=== PATIENT | female | born 1940 | race Caucasian/White ===

== ENCOUNTER 2018-04-30 10:37 | Observation (INO) | payer MEDICARE, OTHER ==
[2018-04-30 11:08] LABS: CHLORIDE,CL 93 mEq/L (98-106); SODIUM,NA 125 mEq/L (136-145)
[2018-04-30] MEDS ORDERED: Morphine 2 MG/ML Syringe IVPUSH PRN (13:33)
[2018-04-30] MEDS ORDERED: Ibuprofen 200 MG Tab PO PRN (13:33)
[2018-04-30] MEDS ORDERED: Temazepam 15 MG Cap PO PRN (13:33)
[2018-04-30] MEDS ORDERED: Docusate Sodium 100 MG Cap PO PRN (13:33)
[2018-04-30] MEDS ORDERED: Ondansetron 4 MG/2 ML SDV IV PRN (13:33)
[2018-04-30] MEDS ORDERED: Acetaminophen 325 MG Tab PO PRN (13:33)
[2018-04-30] MEDS ORDERED: IMMUNE GLOBULIN IV SCH (13:45)
[2018-04-30] MEDS ORDERED: [UNRECOGNIZED DRUG - OTHER] IV SCH (13:45)
[2018-04-30] MEDS ORDERED: Polyethylene Glycol 3350 Powder 17 GM Packet PO PRN (14:00)
[2018-04-30] MEDS: Clindamycin Phosphate in D5W 300 MG in Premix Bag 1 BAG IV SCH ×4 (14:09→19:45)
[2018-04-30] MEDS: Enoxaparin 40 MG/0.4 ML Syringe SUBCUT SCH (14:09)
[2018-04-30] MEDS: Beta-Carotene (Vitamin A) w/Vitamin C & E plus Minerals Tab PO SCH (19:52)
[2018-04-30] MEDS: Metoprolol Tartrate 50 MG Tab **OWN MED PO SCH (19:52)
[2018-04-30] MEDS: Insulin Detemir 100 Units/ML 3 ML Pen SUBCUT SCH (20:25)
[2018-04-30] MEDS: cloNIDine 0.1 MG Tab **OWN MED PO SCH (20:29)
[2018-04-30] MEDS: Acetaminophen/HYDROcodone 325-5 MG Tab **OWN MED PO PRN (23:06)
[2018-05-01] MEDS: Clindamycin Phosphate in D5W 300 MG in Premix Bag 1 BAG IV SCH ×8 (01:47→19:29)
[2018-05-01 07:07] LABS: CHLORIDE,CL 95 mEq/L (98-106); SODIUM,NA 127 mEq/L (136-145)
[2018-05-01] MEDS: Pantoprazole 40 MG Tab.CR **OWN MED PO SCH (07:21)
[2018-05-01] MEDS: LOSARTAN 50 MG PO SCH (07:27)
[2018-05-01] MEDS: Metoprolol Tartrate 50 MG Tab **OWN MED PO SCH ×2 (07:27→19:28)
[2018-05-01] MEDS: TRIAMTERENE PO SCH (07:28)
[2018-05-01] MEDS: HCTZ PO SCH (07:28)
[2018-05-01] MEDS: Loratadine 10 MG Tab PO SCH (07:30)
[2018-05-01] MEDS: Beta-Carotene (Vitamin A) w/Vitamin C & E plus Minerals Tab PO SCH ×2 (07:30→19:28)
[2018-05-01] MEDS: Cholecalciferol (Vitamin D3) 1,000 Unit Tab PO SCH (07:30)
--- NOTE | 2018-05-01 09:57 | PCM.PN ---
- General Info Date of Service: 05/01/18 Functional Status: Reports: Pain Controlled, Tolerating Diet, Ambulating - Review of Systems General: Reports: No Symptoms HEENT: Reports: No Symptoms Pulmonary: Reports: No Symptoms Cardiovascular: Reports: No Symptoms Gastrointestinal: Reports: No Symptoms Genitourinary: Reports: No Symptoms Musculoskeletal: Reports: No Symptoms Skin: Reports: Bruising (LLE) Neurological: Reports: No Symptoms Psychiatric: Reports: No Symptoms - Patient Data Vitals - Most Recent: Last Vital Signs Temp 97.8 F 05/01/18 07:30 Pulse 66 05/01/18 07:27 Resp 16 05/01/18 07:30 BP 133/54 L 05/01/18 07:30 Pulse Ox 99 05/01/18 07:30 Weight - Most Recent: 126 lb 11.2 oz I&O - Last 24 Hours: Intake & Output 04/30/18 05/01/18 05/01/18 22:59 06:59 14:59 Intake Total 50 50 Balance 50 50 Lab Results Last 24 Hours: Laboratory Results - last 24 hr 04/30/18 04/30/18 04/30/18 Range/Units 06:50 10:44 10:44 WBC 12.6 H (5.0-10.0) 10^3/uL RBC 3.95 L (4.00-5.50) 10^6/uL Hgb 11.1 L (12.0-16.0) g/dL Hct 33.6 L (37.0-47.0) % MCV 85.1 (82.0-94.0) fL MCH 28.1 (27.0-32.0) pg MCHC 33.0 (33.0-38.0) g/dL RDW Coeff of Blaze 15.1 H (11.0-15.0) % Plt Count 323 (150-400) 10^3/uL Neut % (Auto) 32.0 L (35-85) % Lymph % (Auto) 59.8 H (10-55) % [place] % (Auto) 7.2 (0-16) % Eos % (Auto) 0.6 (0-5) % Baso % (Auto) 0.4 (0-3) % Neut # (Auto) 4.03 (1.80-7.00) 10^3/uL Lymph # (Auto) 7.53 H (1.00-4.80) 10^3/uL [place] # (Auto) 0.91 H (0.00-0.80) 10^3/uL Eos # (Auto) 0.08 (0.00-0.45) 10^3/uL Baso # (Auto) 0.05 10^3/uL PT 10.0 (9.7-12.3) SEC INR 0.96 (0.92-1.18) APTT (23.2-32.3) SEC D-Dimer, Quantitative 0.98 H (0.00-0.50) Sodium (136-145) mEq/L Potassium (3.5-5.0) mEq/L Chloride (98-106) mEq/L Carbon Dioxide (21-32) mmol/L BUN (7-18) mg/dL Creatinine (0.6-1.0) mg/dL Est Cr Clr Drug Dosing Estimated GFR (MDRD) (>=60) mL/min Glucose (75-99) mg/dL POC Glucose (75-105) mg/dl Calcium (8.4-10.1) mg/dL C-Reactive Protein (0.2-0.8) mg/dL 04/30/18 04/30/18 05/01/18 Range/Units 10:44 20:24 06:50 WBC 11.2 H (5.0-10.0) 10^3/uL RBC 3.40 L (4.00-5.50) 10^6/uL Hgb 9.5 L (12.0-16.0) g/dL Hct 28.8 L (37.0-47.0) % MCV 84.7 (82.0-94.0) fL MCH 27.9 (27.0-32.0) pg MCHC 33.0 (33.0-38.0) g/dL RDW Coeff of Blaze 14.9 (11.0-15.0) % Plt Count 262 (150-400) 10^3/uL Neut % (Auto) 17.5 L (35-85) % Lymph % (Auto) 73.7 H (10-55) % [place] % (Auto) 7.3 (0-16) % Eos % (Auto) 1.0 (0-5) % Baso % (Auto) 0.5 (0-3) % Neut # (Auto) 1.95 (1.80-7.00) 10^3/uL Lymph # (Auto) 8.25 H (1.00-4.80) 10^3/uL [place] # (Auto) 0.82 H (0.00-0.80) 10^3/uL Eos # (Auto) 0.11 (0.00-0.45) 10^3/uL Baso # (Auto) 0.06 10^3/uL PT (9.7-12.3) SEC INR (0.92-1.18) APTT (23.2-32.3) SEC D-Dimer, Quantitative (0.00-0.50) Sodium 125 L (136-145) mEq/L Potassium 4.5 (3.5-5.0) mEq/L Chloride 93 L (98-106) mEq/L Carbon Dioxide 26 (21-32) mmol/L BUN 35 H (7-18) mg/dL Creatinine 1.3 H (0.6-1.0) mg/dL Est Cr Clr Drug Dosing TNP Estimated GFR (MDRD) 40 L (>=60) mL/min Glucose 231 H (75-99) mg/dL POC Glucose 318 H (75-105) mg/dl Calcium 9.3 (8.4-10.1) mg/dL C-Reactive Protein (0.2-0.8) mg/dL 05/01/18 05/01/18 05/01/18 Range/Units 06:50 06:50 07:43 WBC (5.0-10.0) 10^3/uL RBC (4.00-5.50) 10^6/uL Hgb (12.0-16.0) g/dL Hct (37.0-47.0) % MCV (82.0-94.0) fL MCH (27.0-32.0) pg MCHC (33.0-38.0) g/dL RDW Coeff of Blaze (11.0-15.0) % Plt Count (150-400) 10^3/uL Neut % (Auto) (35-85) % Lymph % (Auto) (10-55) % [place] % (Auto) (0-16) % Eos % (Auto) (0-5) % Baso % (Auto) (0-3) % Neut # (Auto) (1.80-7.00) 10^3/uL Lymph # (Auto) (1.00-4.80) 10^3/uL [place] # (Auto) (0.00-0.80) 10^3/uL Eos # (Auto) (0.00-0.45) 10^3/uL Baso # (Auto) 10^3/uL PT (9.7-12.3) SEC INR (0.92-1.18) APTT 27.2 (23.2-32.3) SEC D-Dimer, Quantitative (0.00-0.50) Sodium 127 L (136-145) mEq/L Potassium 4.2 (3.5-5.0) mEq/L Chloride 95 L (98-106) mEq/L Carbon Dioxide 28 (21-32) mmol/L BUN 27 H (7-18) mg/dL Creatinine 1.2 H (0.6-1.0) mg/dL Est Cr Clr Drug Dosing 34.21 Estimated GFR (MDRD) 43 L (>=60) mL/min Glucose 93 D (75-99) mg/dL POC Glucose 98 (75-105) mg/dl Calcium 8.7 (8.4-10.1) mg/dL C-Reactive Protein < 0.2 L (0.2-0.8) mg/dL Med Orders - Current: Current Medications Acetaminophen (Tylenol) 650 mg PO Q4H PRN PRN Reason: Pain (Mild 1-3)/fever Hydrocodone Bitart/Acetaminophen ([place] 325-5 Mg) 1 tab PO Q6H PRN PRN Reason: PAIN Last Admin: 04/30/18 23:06 Dose: 1 tab Cholecalciferol (Vitamin D3) 2,000 units PO DAILY [facility] Last Admin: 05/01/18 07:30 Dose: Not Given Clonidine HCl (Catapres) 0.1 mg PO BEDTIME [facility] Last Admin: 04/30/18 20:29 Dose: 0.1 mg Docusate Sodium (Colace) 100 mg PO BID PRN PRN Reason: Constipation Enoxaparin Sodium (Lovenox) 40 mg SUBCUT Q24H [facility] Last Admin: 04/30/18 14:09 Dose: 40 mg Clindamycin Phosphate 300 mg/ (Premix) 50 mls @ 100 mls/hr IV Q6H [facility] Last Admin: 05/01/18 07:54 Dose: 100 mls/hr Ibuprofen (Motrin) 600 mg PO Q6H PRN PRN Reason: Pain (mild 1-3) Insulin Detemir (Levemir) 6 unit SUBCUT BEDTIME [facility] Last Admin: 04/30/18 20:25 Dose: 6 units Loratadine (Claritin) 10 mg PO DAILY [facility] Last Admin: 05/01/18 07:30 Dose: Not Given Metoprolol Tartrate (Lopressor) 50 mg PO BID [facility] Last Admin: 05/01/18 07:27 Dose: 50 mg Morphine Sulfate (Morphine) 2 mg IVPUSH Q2H PRN PRN Reason: Pain (severe 7-10) Multivitamins/Minerals (Prosight) 2 tab PO BID [facility] Last Admin: 05/01/18 07:30 Dose: Not Given Triamterene/Hctz 75- (50 Mg TabOwn Med) 0.5 each PO DAILY [facility] Last Admin: 05/01/18 07:28 Dose: 0.5 each Non-Formulary Medication (Ibrutinib [Imbruvica]) 420 mg PO DAILY [facility] Ondansetron HCl (Zofran) 4 mg IV Q6H PRN PRN Reason: Nausea/Vomiting Pantoprazole Sodium (Protonix) 40 mg PO DAILY [facility] Last Admin: 05/01/18 07:21 Dose: 40 mg Losartan 50 Mg Tab * (*Own Med) 0 each PO DAILY [facility] Last Admin: 05/01/18 07:27 Dose: 50 each Polyethylene Glycol (Miralax) 17 gm PO DAILY PRN PRN Reason: CONSTIPATION Last Admin: 04/30/18 19:56 Dose: 17 gm Temazepam (Restoril) 15 mg PO BEDTIME PRN PRN Reason: Sleep Discontinued Medications Non-Formulary Medication (Immune Globulin,G(Igg)/Maltose [Octagam 10%]) 10 gm IV ASDIRECTED [facility] - Exam General: Alert, Oriented, Cooperative, No Acute Distress Neck: Supple Lungs: Clear to Auscultation, Normal Respiratory Effort Cardiovascular: Regular Rate, Regular Rhythm, No Murmurs GI/Abdominal Exam: Normal Bowel Sounds, Soft, Non-Tender, No Organomegaly, No Distention, No Abnormal Bruit, No Mass, Pelvis Stable (Female) Exam: Deferred Back Exam: Normal Inspection, Full Range of Motion Extremities: Normal Range of Motion, Non-Tender, No Pedal Edema, Normal Capillary Refill, Other (LLE ecchymosis from ankle to the below the knee. There is faint errythema anterior ta, not as red as 24 hours ago. ) Peripheral Pulses: 2+: Radial (L), Radial (R), Posterior Tibial (L), Posterior Tibial (R), Dorsalis Pedis (L), Dorsalis Pedis (R) Skin: Warm, Dry, Intact Neurological: No New Focal Deficit, Normal Gait, Normal Speech Psy/Mental Status: Alert, Normal Affect, Normal Mood - Problem List Review Problem List Initiated/Reviewed/Updated: Yes - My Orders Last 24 Hours: My Active Orders 04/30/18 13:25 Resuscitation Status Routine 04/30/18 13:33 Patient Status [ADT] Routine Bedrest Bedside Commode [RC] .PRN Height and Weight [RC] .PRN Notify Provider Vital Signs [RC] .PRN Oxygen Therapy [RC] .PRN Up With Assistance [RC] .PRN Vital Signs [RC] 0000,0400,0800,1200,1600,2000 Acetaminophen [Tylenol] 650 mg PO Q4H PRN Docusate Sodium [Colace] 100 mg PO BID PRN Ibuprofen [Motrin] 600 mg PO Q6H PRN Morphine 2 mg IVPUSH Q2H PRN Ondansetron [Zofran] 4 mg IV Q6H PRN Temazepam [Restoril] 15 mg PO BEDTIME PRN 04/30/18 13:49 Acetaminophen/HYDROcodone [[place] 325-5 MG] 1 tab PO Q6H PRN 04/30/18 14:00 Clindamycin Phosphate in D5W [Cleocin in D5W] 300 mg Premix Bag 1 bag IV Q6H Enoxaparin [Lovenox] 40 mg SUBCUT Q24H Polyethylene Glycol 3350 [MiraLAX] 17 gm PO DAILY PRN 04/30/18 19:11 Accu Check [Blood Glucose Check, Bedside] [RC] 0730,1130,1730,2030 04/30/18 20:00 Beta-Carotene(A) w/C & E/Min [Prosight] 2 tab PO BID Insulin Detemir [Levemir] 6 unit SUBCUT BEDTIME Metoprolol Tartrate [Lopressor] 50 mg PO BID cloNIDine [Catapres] 0.1 mg PO BEDTIME 04/30/18 Lunch Consistent Carbohydrate Diet [DIET] 05/01/18 08:00 Cholecalciferol (Vitamin D3) [Vitamin D3] 2,000 units PO DAILY Loratadine [Claritin] 10 mg PO DAILY Non-Formulary Medication [NF Drug] 0.5 each PO DAILY Pantoprazole [ProTONIX] 40 mg PO DAILY Patient's Own Medication [Ptom] 0 each PO DAILY 05/02/18 05:00 BASIC METABOLIC PANEL,BMP [CHEM] DAILY C-REACTIVE PROTEIN [CHEM] DAILY CBC WITH AUTO DIFF [HEME] DAILY 05/02/18 08:00 VL Duplex Lwr Ext Veins Ltd Lt [US] Routine Ibrutinib [Imbruvica] 420 mg PO DAILY 05/03/18 05:00 BASIC METABOLIC PANEL,BMP [CHEM] DAILY C-REACTIVE PROTEIN [CHEM] DAILY CBC WITH AUTO DIFF [HEME] DAILY - Plan Plan:: This patient is a 78 year old female that presented to the clinic yesterday. She was admitted for LLE cellulitis and LLE eccyhmosis discoloration without known recent trauma to the leg. She reports her trauma to the LLE occurred 3 weeks ago. The patient reports that she does not recall new trauma lately. The patient denies staples, dizziness, n, v, d, f, abd pain, cp, back pain, extremity pain. Pulses +2, cap refill <2 sec, motor function intact. Neurovascular intact. Sensation decreased chronically due to neuropathy. Labs yesterday was wbc 12.6, na 125, chloride 93, BUN 35, CR 1.3. Today these labs have improved. They are wbc 11.2, na 127, chloride 95, BUN 27, CR 1.2. The plan for this patient is to continue admit, abx, and US LLE tomorrow morning. If the US is negative, the patient may be discharge.
[2018-05-01] MEDS: IBRUTINIB 420 MG PO SCH (13:05)
[2018-05-01] MEDS: Enoxaparin 40 MG/0.4 ML Syringe SUBCUT SCH (13:07)
[2018-05-01] MEDS: cloNIDine 0.1 MG Tab **OWN MED PO SCH (19:29)
[2018-05-01] MEDS: Insulin Detemir 100 Units/ML 3 ML Pen SUBCUT SCH (20:28)
[2018-05-01] MEDS: Acetaminophen/HYDROcodone 325-5 MG Tab **OWN MED PO PRN (22:58)
[2018-05-02] MEDS: Clindamycin Phosphate in D5W 300 MG in Premix Bag 1 BAG IV SCH ×4 (01:54→07:24)
[2018-05-02] MEDS: Pantoprazole 40 MG Tab.CR **OWN MED PO SCH (07:00)
[2018-05-02 07:15] LABS: CHLORIDE,CL 92 mEq/L (98-106)
[2018-05-02 07:16] LABS: SODIUM,NA 124 mEq/L (136-145)
[2018-05-02] MEDS: Loratadine 10 MG Tab PO SCH (07:21)
[2018-05-02] MEDS: Metoprolol Tartrate 50 MG Tab **OWN MED PO SCH (07:22)
[2018-05-02] MEDS: TRIAMTERENE PO SCH (07:23)
[2018-05-02] MEDS: LOSARTAN 50 MG PO SCH (07:23)
[2018-05-02] MEDS: HCTZ PO SCH (07:23)
[2018-05-02] MEDS: Cholecalciferol (Vitamin D3) 1,000 Unit Tab PO SCH (07:24)
[2018-05-02] MEDS: Beta-Carotene (Vitamin A) w/Vitamin C & E plus Minerals Tab PO SCH (08:35)
[2018-05-02 11:54] VITALS: BP 140/56
[2018-05-02] MEDS: IBRUTINIB 420 MG PO SCH (12:41)
[2018-05-02] MEDS ORDERED: [UNRECOGNIZED DRUG - OTHER] PO SCH (20:00)
--- NOTE | 2018-05-02 20:08 | PCM.DCSUM1 ---
Discharge Summary - Hospital Course Free Text/Narrative:: Patient was admitted for cellulitis versus DVT of her left lower extremity. Patient presented to [facility] with swelling and bruising of her LLE. She did not recall any recent trauma. Had bumped her leg 3 weeks ago. When undressing for the night, she noted a large lump and swelling of her left leg. Labs at [facility] did show a mild elevation of her WBC at 11, CRP negative. D-Dimer 0.98. 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 She is currently on a chemo pill and has been taking since October. She denies fever. Mild discomfort of leg. [place] [facility] and recommended admission with IV antibiotics until ultrasound obtained. - Discharge Data Discharge Date: 05/02/18 Discharge Disposition: Home, Self-Care 01 Condition: Good - Patient Summary/Data Complications: none Hospital Course: Patient has been stable through stay. Has been on IV Cleocin. WBC and CRP have remained stable. Sodium has remained low at 124 today. She relates that her last one was 121 and she had been advised by Dr. Drake, her oncologist, to increase her salt intake and cut back on her water. Leg has remained swollen and has diffuse bruising from below the patella to her foot. Tender. Had ultrasound of LLE today was negative for any clots. - Patient Instructions Diet: Diabetic Diet Activity: As Tolerated - Discharge Plan Home Medications: Home Meds Losartan [Cozaar] 50 mg PO DAILY 11/07/13 [History] Maxivision 2 tab PO BID 11/07/13 [History] Hydrocodone/Acetaminophen [Hydrocodone-Acetaminophen 5-325] 1 - 2 tab PO Q6H PRN 05/29/14 [History] Acetaminophen [Tylenol] 1 - 2 tab PO Q4H PRN 08/02/14 [History] Cholecalciferol (Vitamin D3) [Vitamin D3] 2,000 unit PO DAILY 12/11/14 [History] Pantoprazole [ProTONIX] 40 mg PO DAILY 02/12/15 [History] Immune Globulin,G(IgG)/Maltose [Octagam 10%] 10 gm IV ASDIRECTED 12/27/15 [ History] Metoprolol Tartrate [Lopressor] 50 mg PO BID 12/27/15 [History] Insulin Detemir [Levemir] 6 unit SUBCUT BEDTIME 01/20/16 [History] Fexofenadine HCl [Daksha Allergy] 60 mg PO DAILY 04/21/16 [History] cloNIDine [Catapres] 0.1 mg PO DAILY 06/23/17 [History] Ibrutinib [Imbruvica] 420 mg PO DAILY 04/30/18 [History] Polyethylene Glycol 3350 [MiraLAX] 1 packet PO DAILY PRN 04/30/18 [History] Triamterene/Hydrochlorothiazid [Triamterene-HCTZ 75-50 MG] 0.5 tab PO DAILY [History] Referrals: Óscar Wang MD [Primary Care Provider] - (Follow up in one week with Dr. Wang. Lab prior) - Discharge Summary/Plan Comment DC Time >30 min.: No Discharge Summary/Plan Comment: Discharge home Elevate leg Increase salt intake Decrease water intake Heat to leg for comfort Follow up with Dr. Wang in one week, repeat labs prior. - General Info Date of Service: 05/02/18 Admission Dx/Problem (Free Text: Hematoma to left lower extremity Functional Status: Reports: Pain Controlled, Tolerating Diet, Ambulating - Review of Systems General: Reports: Fatigue. Denies: Fever, Weakness, Malaise HEENT: Reports: No Symptoms Pulmonary: Denies: Shortness of Breath, Cough Cardiovascular: Reports: Edema. Denies: Chest Pain, Lightheadedness Gastrointestinal: Reports: No Symptoms Genitourinary: Reports: No Symptoms Musculoskeletal: Reports: Leg Pain Skin: Reports: Bruising Neurological: Reports: No Symptoms - Patient Data Vitals - Most Recent: Last Vital Signs Temp 96.4 F 05/02/18 11:54 Pulse 61 05/02/18 11:54 Resp 18 05/02/18 11:54 BP 140/56 L 05/02/18 11:54 Pulse Ox 100 05/02/18 11:54 Weight - Most Recent: 126 lb 11.2 oz I&O - Last 24 hours: Intake & Output 05/02/18 05/02/18 05/02/18 06:59 14:59 22:59 Intake Total 50 Balance 50 Lab Results - Last 24 hrs: Laboratory Results - last 24 hr 05/01/18 05/01/18 05/02/18 Range/Units 17:25 20:22 06:57 WBC 11.0 H (5.0-10.0) 10^3/uL RBC 3.52 L (4.00-5.50) 10^6/uL Hgb 9.8 L (12.0-16.0) g/dL Hct 29.9 L (37.0-47.0) % MCV 84.9 (82.0-94.0) fL MCH 27.8 (27.0-32.0) pg MCHC 32.8 L (33.0-38.0) g/dL RDW Coeff of Blaze 14.9 (11.0-15.0) % Plt Count 244 (150-400) 10^3/uL Neut % (Auto) 18.0 L (35-85) % Lymph % (Auto) 73.7 H (10-55) % [place] % (Auto) 6.9 (0-16) % Eos % (Auto) 1.0 (0-5) % Baso % (Auto) 0.4 (0-3) % Neut # (Auto) 1.99 (1.80-7.00) 10^3/uL Lymph # (Auto) 8.14 H (1.00-4.80) 10^3/uL [place] # (Auto) 0.76 (0.00-0.80) 10^3/uL Eos # (Auto) 0.11 (0.00-0.45) 10^3/uL Baso # (Auto) 0.04 10^3/uL Sodium (136-145) mEq/L Potassium (3.5-5.0) mEq/L Chloride (98-106) mEq/L Carbon Dioxide (21-32) mmol/L BUN (7-18) mg/dL Creatinine (0.6-1.0) mg/dL Est Cr Clr Drug Dosing mL/min Estimated GFR (MDRD) (>=60) mL/min Glucose (75-99) mg/dL POC Glucose 193 H 258 H (75-105) mg/dl Calcium (8.4-10.1) mg/dL C-Reactive Protein (0.2-0.8) mg/dL 05/02/1818 05/02/18 Range/Units 06:57 07:11 11:33 WBC (5.0-10.0) 10^3/uL RBC (4.00-5.50) 10^6/uL Hgb (12.0-16.0) g/dL Hct (37.0-47.0) % MCV (82.0-94.0) fL MCH (27.0-32.0) pg MCHC (33.0-38.0) g/dL RDW Coeff of Blaze (11.0-15.0) % Plt Count (150-400) 10^3/uL Neut % (Auto) (35-85) % Lymph % (Auto) (10-55) % [place] % (Auto) (0-16) % Eos % (Auto) (0-5) % Baso % (Auto) (0-3) % Neut # (Auto) (1.80-7.00) 10^3/uL Lymph # (Auto) (1.00-4.80) 10^3/uL [place] # (Auto) (0.00-0.80) 10^3/uL Eos # (Auto) (0.00-0.45) 10^3/uL Baso # (Auto) 10^3/uL Sodium 124 L* (136-145) mEq/L Potassium 4.4 (3.5-5.0) mEq/L Chloride 92 L (98-106) mEq/L Carbon Dioxide 30 (21-32) mmol/L BUN 25 H (7-18) mg/dL Creatinine 1.2 H (0.6-1.0) mg/dL Est Cr Clr Drug Dosing 34.21 mL/min Estimated GFR (MDRD) 43 L (>=60) mL/min Glucose 113 H (75-99) mg/dL POC Glucose 113 H 184 H (75-105) mg/dl Calcium 8.8 (8.4-10.1) mg/dL C-Reactive Protein < 0.2 L (0.2-0.8) mg/dL Med Orders - Current: Current Medications Discontinued Medications Acetaminophen (Tylenol) 650 mg PO Q4H PRN PRN Reason: Pain (Mild 1-3)/fever Last Admin: 05/01/18 11:59 Dose: 650 mg Hydrocodone Bitart/Acetaminophen ([place] 325-5 Mg) 1 tab PO Q6H PRN PRN Reason: PAIN Last Admin: 05/01/18 22:58 Dose: 1 tab Cholecalciferol (Vitamin D3) 2,000 units PO DAILY [facility] Last Admin: 05/02/18 07:24 Dose: Not Given Clonidine HCl (Catapres) 0.1 mg PO BEDTIME [facility] Last Admin: 05/01/18 19:29 Dose: 0.1 mg Docusate Sodium (Colace) 100 mg PO BID PRN PRN Reason: Constipation Enoxaparin Sodium (Lovenox) 40 mg SUBCUT Q24H [facility] Last Admin: 05/01/18 13:07 Dose: 40 mg Clindamycin Phosphate 300 mg/ (Premix) 50 mls @ 100 mls/hr IV Q6H [facility] Last Admin: 05/02/18 07:24 Dose: 100 mls/hr Ibuprofen (Motrin) 600 mg PO Q6H PRN PRN Reason: Pain (mild 1-3) Insulin Detemir (Levemir) 6 unit SUBCUT BEDTIME [facility] Last Admin: 05/01/18 20:28 Dose: 6 units Loratadine (Claritin) 10 mg PO DAILY [facility] Last Admin: 05/02/18 07:21 Dose: Not Given Metoprolol Tartrate (Lopressor) 50 mg PO BID [facility] Last Admin: 05/02/18 07:22 Dose: 50 mg Morphine Sulfate (Morphine) 2 mg IVPUSH Q2H PRN PRN Reason: Pain (severe 7-10) Multivitamins/Minerals (Prosight) 2 tab PO BID [facility] Last Admin: 05/02/18 08:35 Dose: Not Given Non-Formulary Medication (Immune Globulin,G(Igg)/Maltose [Octagam 10%]) 10 gm IV ASDIRECTED [facility] Triamterene/Hctz 75- (50 Mg TabOwn Med) 0.5 each PO DAILY [facility] Last Admin: 05/02/18 07:23 Dose: 0.5 each Ibrutinib [Imbruvica (] 420 MgOwn Med) 420 mg PO DAILY@1300 [facility] Last Admin: 05/02/18 12:41 Dose: 420 mg Ptom Maxivision Multi Vit (Eye Formula) 2 each PO BID [facility] Ondansetron HCl (Zofran) 4 mg IV Q6H PRN PRN Reason: Nausea/Vomiting Pantoprazole Sodium (Protonix) 40 mg PO DAILY [facility] Last Admin: 05/02/18 07:00 Dose: 40 mg Losartan 50 Mg Tab * (*Own Med) 0 each PO DAILY [facility] Last Admin: 05/02/18 07:23 Dose: 50 each Polyethylene Glycol (Miralax) 17 gm PO DAILY PRN PRN Reason: CONSTIPATION Last Admin: 04/30/18 19:56 Dose: 17 gm Temazepam (Restoril) 15 mg PO BEDTIME PRN PRN Reason: Sleep - Exam General: Reports: Alert, Oriented HEENT: Reports: Mucous Membr. Moist/[place] Neck: Reports: Supple Lungs: Reports: Clear to Auscultation, Normal Respiratory Effort Cardiovascular: Reports: Regular Rate, Regular Rhythm GI/Abdominal Exam: Normal Bowel Sounds, Soft, Non-Tender Extremities: Other (bruising and swelling to LLE) Skin: Reports: Ecchymosis
== END 2018-05-02 13:50 | disposition home or self-care (01) ==
LOC: CC.DI 10:37 → CC.MS 12:40 → UNDOADMOB 12:40 → CC.MS 13:25
PROVIDERS: ADMIT Nurse Practitioner; ATTEND Family Medicine
DX: L03.116 Cellulitis of left lower limb (principal); M79.89 Other specified soft tissue disorders; S80.12XA Contusion of left lower leg, initial encounter; D72.829 Elevated white blood cell count, unspecified; E87.1 Hypo-osmolality and hyponatremia; I10 Essential (primary) hypertension; E11.9 Type 2 diabetes mellitus without complications; E78.5 Hyperlipidemia, unspecified; M19.90 Unspecified osteoarthritis, unspecified site; Z79.4 Long term (current) use of insulin; Z79.899 Other long term (current) drug therapy; Z88.8 Allergy status to other drugs, medicaments and biological substances; Z88.0 Allergy status to penicillin; Z88.2 Allergy status to sulfonamides; Z88.1 Allergy status to other antibiotic agents; X58.XXXA Exposure to other specified factors, initial encounter
CPT/HCPCS: 36415; 73590-LT; 73630-LT; 80048; 82962; 85025; 85379; 85610; 85730; 86140; 93971-LT; A9270-GY; J1650; J1815-GY

== ENCOUNTER 2018-12-06 14:19 | Emergency (ER) | payer MEDICARE, OTHER ==
[2018-12-06] MEDS ORDERED: Atropine 0.1 MG/ML 10 ML Syringe IV ONE (14:20)
[2018-12-06] MEDS ORDERED: Midazolam 1 MG/ML 2 ML SDV IV ONE ×4 (14:20)
[2018-12-06] MEDS ORDERED: fentaNYL 100 MCG/2 ML SDV IV ONE ×3 (14:20)
[2018-12-06 15:09] LABS: CHLORIDE,CL 89 mEq/L (98-106)
[2018-12-06 15:12] LABS: SODIUM,NA 124 mEq/L (136-145)
--- NOTE | 2018-12-06 16:00 | EDM.PDOC ---
ED HPI GENERAL MEDICAL PROBLEM - General Chief Complaint: Cardiovascular Problem Stated Complaint: SOB Time Seen by Provider: 12/06/18 14:23 Source of Information: Reports: RN History Limitations: Reports: Altered Mental Status, Respiratory Distress - History of Present Illness INITIAL COMMENTS - FREE TEXT/NARRATIVE: Lashawn is a 78 yr old female who was brought into the ED via hospital nursing staff. 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 She had went and got into her car outside the facility to let it warm up. She had called into the clinic dental office receptionist stating she wasn't feeling well and was short of breath. [facility] contacted the hospital nurses and they found her in her car responsive initially and kept complaining of shortness of breath. They were able to get her into a wheel chair and brought her into the ED. While transferring patient to [facility] she became unresponsive. I was immediately called and went immediately to the ED. Upon my arrival Lashawn was unresponsive. EKG done immediately did show bradycardia and patient was given 0.5mg of Atropine. [facility] was consulted for assistance. Dr. Llamas (ER physician) was available for assistance. Lashawn then went into PEA and immediately chest compressions were started. CPR in progress. 1mg of Epinephrine was given via IV. After initial pulse check, patient remained in PEA. CAYETANO device was started. Using Glideslope a 7.5Fr ET tube was placed with placement confirmed via chest x-ray. We were able to palpate a femoral pulse. Chest compressions were stopped. Labs reviewed and no known cause noted. Lashawn was intermittently fighting the ET tube and she was given 1mg of Versed and 50mcg of Fentanyl. [employer] was contacted via [employer] and was enroute. Unfortunately, due to weather they had to turn around roughly 20 minutes from [place]. We were able to then get an ALS crew from [place] to transfer Lashawn to [place] where [email or web address] was able to land and transfer patient to [facility] in [place]. I had consulted with Dr. Cortes who accepted transfer. Lashawn ended up continuing to intermittently resist the ET tube and we continued to give Fentanyl and Versed. Please see nursing notes for total dosages. Prior to transfer pulse was 82 bpm with repeat EKG showing NSR. Blood pressure was stable at transfer. - Related Data Allergies Allergy/AdvReac Type Severity Reaction Status Date / Time clarithromycin [From Biaxin] Allergy Intermediate Headache Verified 12/06/18 11: 08 Penicillins Allergy Intermediate Rash Verified 12/06/18 11:08 Sulfa (Sulfonamide Allergy Intermediate Stomach Verified 12/06/18 11:08 Antibiotics) Upset lisinopril Allergy Mild Cough Verified 12/06/18 11:08 Home Meds: Home Meds Losartan [Cozaar] 50 mg PO DAILY 11/07/13 [History] Maxivision 2 tab PO BID 11/07/13 [History] Hydrocodone/Acetaminophen [Hydrocodone-Acetaminophen 5-325] 1 - 2 tab PO Q6H PRN 05/29/14 [History] Acetaminophen [Tylenol] 1 - 2 tab PO Q4H PRN 08/02/14 [History] Cholecalciferol (Vitamin D3) [Vitamin D3] 2,000 unit PO DAILY 12/11/14 [History] Pantoprazole [ProTONIX] 40 mg PO DAILY 02/12/15 [History] Immune Globulin,G(IgG)/Maltose [Octagam 10%] 10 gm IV ASDIRECTED 12/27/15 [ History] Metoprolol Tartrate [Lopressor] 50 mg PO BID 12/27/15 [History] Insulin Detemir [Levemir] 6 unit SUBCUT BEDTIME 01/20/16 [History] Fexofenadine HCl [Daksha Allergy] 60 mg PO DAILY 04/21/16 [History] cloNIDine [Catapres] 0.1 mg PO DAILY 06/23/17 [History] Ibrutinib [Imbruvica] 420 mg PO DAILY 04/30/18 [History] Polyethylene Glycol 3350 [MiraLAX] 1 packet PO DAILY PRN 04/30/18 [History] Triamterene/Hydrochlorothiazid [Triamterene-HCTZ 75-50 MG] 0.5 tab PO DAILY [History] Cefuroxime Axetil [Ceftin] 250 mg PO BID 08/31/18 [History] Past Medical History HEENT History: Reports: Allergic Rhinitis Cardiovascular History: Reports: Hypertension Gastrointestinal History: Reports: GERD Endocrine/Metabolic History: Reports: Diabetes, Type II Oncologic (Cancer) History: Reports: Leukemia Dermatologic History: Reports: Cellulitis - Past Surgical History GI Surgical History: Reports: Cholecystectomy Musculoskeletal Surgical History: Reports: Other (See Below) Other Oncologic Surgeries/Procedures: Patient has and implanted port, which has been accessed. Social & Family History - Caffeine Use Caffeine Use: Reports: Coffee ED ROS GENERAL - Review of Systems Review Of Systems: Unable To Obtain ED EXAM, CPR - Physical Exam Exam: See Below Eye Exam: Bilateral Eye: Abnormal Pupil (Pupils were fixed bilaterally) Respiratory Chest: Respiratory Distress, Crackles Cardiovascular: CPR In Progress Extremities: Pedal Edema, Other (chronic stasis dermatitis bilaterally) Neurological: Unresponsive ED CPR PROCEDURES - Endotracheal Intubation ET Intubation Indication: Airway Protection, Cardiac Arrest Pre-Oxygenation: Assisted with BVM, 100% FiO2 Placement: Orotracheal, Uncomplicated Placement Cords Visualized: Yes ETT Size In mm: 7.5 Number of Attempts: 1 Confirmed By: CO2 Indicator, Bilateral Breath Sounds, Chest Xray Tube Secured By: By Provider Course - Orders/Labs/Meds Orders: Active Orders 24 hr Category Date Time Status Chest 1V Frontal [CR] Routine Exams 12/06/18 14:30 Taken Labs: Laboratory Tests 12/06/18 12/06/18 12/06/18 Range/Units 14:29 14:29 14:29 WBC 23.3 H* (5.0-10.0) 10^3/uL RBC 4.25 (4.00-5.50) 10^6/uL Hgb 11.2 L (12.0-16.0) g/dL Hct 36.0 L (37.0-47.0) % MCV 84.7 (82.0-94.0) fL MCH 26.4 L (27.0-32.0) pg MCHC 31.1 L (33.0-38.0) g/dL RDW Coeff of Blaze 18.7 H (11.0-15.0) % Plt Count 322 (150-400) 10^3/uL Add Manual Diff Yes Neutrophils % (Manual) 15 L (35-85) % Band Neutrophils % 0 (0-5) % Lymphocytes % (Manual) 83 H (21-55) % Monocytes % (Manual) 2 (2-12) % Acanthocytes (Spur) 1+ slight H (NOT SEEN) PT 10.5 (9.7-12.3) SEC INR 1.01 (0.92-1.18) APTT 31.5 (23.2-32.3) SEC Sodium 124 L* (136-145) mEq/L Potassium 4.7 (3.5-5.0) mEq/L Chloride 89 L (98-106) mEq/L Carbon Dioxide 19 L (21-32) mmol/L BUN 32 H (7-18) mg/dL Creatinine 1.8 H (0.6-1.0) mg/dL Est Cr Clr Drug Dosing TNP Estimated GFR (MDRD) 27 L (>=60) mL/min Glucose 298 H D (75-99) mg/dL Calcium 9.4 (8.4-10.1) mg/dL Lactate Dehydrogenase 141 (100-190) U/L Creatine Kinase 25 (21-215) U/L Troponin I 0.020 (0.00-0.06) ng/mL Meds: Medications Discontinued Medications Generic Name Dose Route Start Last Admin Trade Name Freq PRN Reason Stop Dose Admin Fentanyl Confirm 12/06/18 14:38 Sublimaze Administered 12/06/18 14:39 Dose 100 mcg .ROUTE .STK-MED ONE Fentanyl Confirm 12/06/18 15:06 Sublimaze Administered 12/06/18 15:07 Dose 100 mcg .ROUTE .STK-MED ONE Fentanyl Confirm 12/06/18 15:23 Sublimaze Administered 12/06/18 15:24 Dose 100 mcg .ROUTE .STK-MED ONE Fentanyl Confirm 12/06/18 15:52 Sublimaze Administered 12/06/18 15:53 Dose 100 mcg .ROUTE .STK-MED ONE Sodium Chloride Confirm 12/06/18 14:23 Normal Saline Administered 12/06/18 14:24 Dose 1,000 mls @ as directed .ROUTE .STK-MED ONE Sodium Chloride Confirm 12/06/18 15:15 Normal Saline Administered 12/06/18 15:16 Dose 1,000 mls @ as directed .ROUTE .STK-MED ONE Sodium Chloride Confirm 12/06/18 15:23 Normal Saline Administered 12/06/18 15:24 Dose 1,000 mls @ as directed .ROUTE .STK-MED ONE Midazolam HCl Confirm 12/06/18 14:39 Versed 1 Mg/Ml Administered 12/06/18 14:40 Dose 2 mg .ROUTE .STK-MED ONE Midazolam HCl Confirm 12/06/18 14:46 Versed 1 Mg/Ml Administered 12/06/18 14:47 Dose 2 mg .ROUTE .STK-MED ONE Midazolam HCl Confirm 12/06/18 15:03 Versed 1 Mg/Ml Administered 12/06/18 15:04 Dose 2 mg .ROUTE .STK-MED ONE Midazolam HCl Confirm 12/06/18 15:44 Versed 1 Mg/Ml Administered 12/06/18 15:45 Dose 2 mg .ROUTE .STK-MED ONE Departure - Departure Time of Disposition: 16:45 Disposition: DC/[facility]fer to [facility] 02 Clinical Impression: Cardiac arrest - Discharge Information Referrals: Óscar Wagn MD [Primary Care Provider] - Forms: ED Department Discharge - Problem List & Annotations (1) Cardiac arrest SNOMED Code(s): 548056245 Code(s): I46.9 - CARDIAC ARREST, CAUSE UNSPECIFIED Status: Acute Current Visit: Yes - My Orders Last 24 Hours: My Active Orders 12/06/18 14:30 Chest 1V Frontal [CR] Routine - Assessment/Plan Last 24 Hours: My Active Orders 12/06/18 14:30 Chest 1V Frontal [CR] Routine Plan: Please see HPI for details.
[2018-12-06 19:30] VITALS: BP 110/66
[2018-12-06] MEDS: Midazolam 1 MG/ML 2 ML SDV ONE ×4 (20:11→20:13)
[2018-12-06] MEDS: fentaNYL 100 MCG/2 ML SDV ONE ×4 (20:12→20:13)
[2018-12-06] MEDS: Sodium Chloride 0.9% 1,000 ML ONE ×3 (20:12)
== END 2018-12-06 16:06 ==
LOC: CC.ED 14:19
DX: I46.9 Cardiac arrest, cause unspecified (principal); I10 Essential (primary) hypertension; E11.9 Type 2 diabetes mellitus without complications; Z88.8 Allergy status to other drugs, medicaments and biological substances; Z88.2 Allergy status to sulfonamides; Z79.899 Other long term (current) drug therapy
CPT/HCPCS: 36415; 71045; 80048; 82550; 83615; 84484; 85025; 85610; 85730; 93005; 96360; 96361; 96374; 96375; 96376; 99291; 99292; J0461; J2250; J3010

== ENCOUNTER 2019-02-22 10:20 | Emergency (ER) | payer MEDICARE, OTHER ==
[2019-02-22 10:28] VITALS: BP 166/79
[2019-02-22] MEDS ORDERED: Albuterol/Ipratropium 3.0-0.5 MG/3 ML Neb Soln NEB PRN (10:29)
[2019-02-22 11:03] LABS: CHLORIDE,CL 98 mEq/L (98-106); SODIUM,NA 132 mEq/L (136-145)
[2019-02-22] MEDS ORDERED: Furosemide 40 MG/4 ML VIAL IVPUSH ONE (11:29)
--- NOTE | 2019-02-22 11:59 | EDM.PDOC ---
ED HPI GENERAL MEDICAL PROBLEM - General Chief Complaint: Respiratory Problem Stated Complaint: SOB, low sats, cough Time Seen by Provider: 02/22/19 10:24 Source of Information: Reports: Patient, [facility] Records History Limitations: Reports: No Limitations - History of Present Illness INITIAL COMMENTS - FREE TEXT/NARRATIVE: Patient presents to the ER with complaints of increased shortness of breath. Was walking back from breakfast, felt sick and vomited several times. Staff concerned with aspiration as she got very short of breath, sats were 68% and she was dusky. They placed her on oxygen and gave her a neb treatment and she has responded to that well. She feels the nausea/vomiting came from GI upset related to Macrobid that she has been on for a UTI. She admits she has been coughing a lot more the last few days. Has sinus congestion with noted blood so does feel the blood in the vomitus is related to her nose. No fevers. Mild headache. Onset: Sudden Duration: Minutes: Location: Reports: Chest Associated Symptoms: Reports: Cough, Headaches, Nausea/Vomiting, Shortness of Breath, Weakness. 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: Reports: Breathing Treatments, Oxygen Right Lower Abdomen Pain Score (Numeric/FACES): 3 - Related Data Allergies Allergy/AdvReac Type Severity Reaction Status Date / Time clarithromycin [From Biaxin] Allergy Intermediate Headache Verified 02/22/19 10: 44 Penicillins Allergy Intermediate Rash Verified 02/22/19 10:44 Sulfa (Sulfonamide Allergy Intermediate Stomach Verified 02/22/19 10:44 Antibiotics) Upset lisinopril Allergy Mild Cough Verified 02/22/19 10:44 Home Meds: Home Meds Maxivision 1 tab PO DAILY 11/07/13 [History] Acetaminophen [Tylenol] 650 mg PO Q4H PRN 08/02/14 [History] Cholecalciferol (Vitamin D3) [Vitamin D3] 2,000 unit PO DAILY 12/11/14 [History] Metoprolol Tartrate [Lopressor] 75 mg PO BID 12/27/15 [History] Insulin Detemir [Levemir] 17 unit SUBCUT BEDTIME 01/20/16 [History] Acetaminophen [Tylenol Extra Strength] 500 mg PO BEDTIME 02/22/19 [History] Apixaban [Eliquis] 2.5 mg PO BID 02/22/19 [History] Calcium Carbonate [Tums] 1,000 mg PO QID PRN 02/22/19 [History] Dextran 70/Hypromellose [Artificial Tears] 1 - 2 drop EYEBOTH Q1H PRN 02/22/19 [ History] Furosemide 40 mg PO BID 02/22/19 [History] Insulin Lispro [HumaLOG] 3 units SUBCUT TIDAC 02/22/19 [History] Loratadine [Claritin] 10 mg PO DAILY PRN 02/22/19 [History] Melatonin 5 mg PO DAILY PRN 02/22/19 [History] Menthol [Biofreeze] 1 applic TOP QID PRN 02/22/19 [History] Multivitamin/Iron/Folic Acid [Multi-Day Plus Iron Tablet] 1 tab PO DAILY [History] Nitrofurantoin Macrocrystal [Macrodantin] 100 mg PO BID 02/22/19 [History] Omeprazole 20 mg PO DAILY 02/22/19 [History] Potassium Chloride [Klor-Con M20] 40 meq PO DAILY 02/22/19 [History] Tamsulosin HCl [Flomax] 0.4 mg PO BEDTIME 02/22/19 [History] guaiFENesin/Dextromethorphan [Tussin DM Clear] 10 ml PO Q4H PRN 02/22/19 [ History] traMADol HCl [Tramadol HCl] 25 mg PO Q6H PRN 02/22/19 [History] Past Medical History HEENT History: Reports: Allergic Rhinitis Cardiovascular History: Reports: Afib, Heart Failure, Hypertension Gastrointestinal History: Reports: GERD Genitourinary History: Reports: Chronic Renal Insuffiency, UTI, Recurrent Musculoskeletal History: Reports: Osteoporosis Endocrine/Metabolic History: Reports: Diabetes, Type II Oncologic (Cancer) History: Reports: Leukemia Dermatologic History: Reports: Cellulitis - Past Surgical History GI Surgical History: Reports: Cholecystectomy Other Oncologic Surgeries/Procedures: Patient has and implanted port, which has been accessed. Social & Family History - Tobacco Use Smoking Status *Q: Never Smoker - Caffeine Use Caffeine Use: Reports: Coffee - Recreational Drug Use Recreational Drug Use: No ED ROS GENERAL - Review of Systems Review Of Systems: See Below Constitutional: Reports: Chills, Malaise, Weakness, Fatigue. Denies: Fever HEENT: Reports: Nosebleed, Rhinitis, Sinus Problem. Denies: Ear Discharge, Throat Swelling Respiratory: Reports: Shortness of Breath, Cough Cardiovascular: Reports: Edema. Denies: Chest Pain, Lightheadedness Endocrine: Reports: Fatigue GI/Abdominal: Reports: Nausea, Vomiting. Denies: Abdominal Pain : Reports: No Symptoms Musculoskeletal: Reports: No Symptoms Skin: Reports: No Symptoms Neurological: Reports: Weakness ED EXAM, GENERAL - Physical Exam Exam: See Below Exam Limited By: No Limitations General Appearance: Alert, WD/WN, Mild Distress Ears: Normal External Exam, Normal TMs Nose: Normal Inspection, Clear Rhinorrhea, Other (mild blood noted on tissue, mucosa irritated, no active nose bleed) Throat/Mouth: Normal Inspection, Normal Oropharynx Head: Normocephalic Neck: Normal Inspection, Supple, Non-Tender Respiratory/Chest: Wheezing Cardiovascular: Regular Rate, Rhythm GI/Abdominal: Normal Bowel Sounds, Soft, Non-Tender Extremities: Normal Inspection, Pedal Edema (2+ nonpitting LLE, 1+ pitting RLE) Neurological: Alert, Oriented Skin Exam: Warm, Dry Course - Vital Signs Last Recorded V/S: Last Vital Signs Temp 100.0 F 02/22/19 10:22 Pulse 97 02/22/19 10:22 Resp 22 H 02/22/19 10:22 BP 166/79 H 02/22/19 10:22 Pulse Ox 95 02/22/19 12:30 - Orders/Labs/Meds Orders: Active Orders 24 hr Category Date Time Status Oxygen Therapy, ED [RC] ASDIRECTED Care 02/22/19 10:20 Active RT Aerosol Therapy [RC] ASDIRECTED Care 02/22/19 10:29 Active Chest 2V [CR] Stat Exams 02/22/19 10:29 Taken CULTURE URINE [RM] Urgent Lab 02/22/19 11:30 Received Labs: Laboratory Tests 02/22/19 02/22/19 02/22/19 Range/Units 10:38 10:38 10:38 WBC 12.3 H (5.0-10.0) 10^3/uL RBC 4.27 (4.00-5.50) 10^6/uL Hgb 11.2 L (12.0-16.0) g/dL Hct 34.2 L (37.0-47.0) % MCV 80.1 L (82.0-94.0) fL MCH 26.2 L (27.0-32.0) pg MCHC 32.7 L (33.0-38.0) g/dL RDW Coeff of Blaze 15.1 H (11.0-15.0) % Plt Count 213 (150-400) 10^3/uL Neut % (Auto) 67.5 (35-85) % Lymph % (Auto) 27.3 (10-55) % [place] % (Auto) 4.5 (0-16) % Eos % (Auto) 0.4 (0-5) % Baso % (Auto) 0.3 (0-3) % Neut # (Auto) 8.33 H (1.80-7.00) 10^3/uL Lymph # (Auto) 3.36 (1.00-4.80) 10^3/uL [place] # (Auto) 0.55 (0.00-0.80) 10^3/uL Eos # (Auto) 0.05 (0.00-0.45) 10^3/uL Baso # (Auto) 0.04 10^3/uL D-Dimer, Quantitative 0.68 H (0.00-0.50) Sodium 132 L (136-145) mEq/L Potassium 3.7 (3.5-5.0) mEq/L Chloride 98 (98-106) mEq/L Carbon Dioxide 26 (21-32) mmol/L BUN 32 H (7-18) mg/dL Creatinine 1.1 H (0.6-1.0) mg/dL Est Cr Clr Drug Dosing 34.30 mL/min Estimated GFR (MDRD) 48 L (>=60) mL/min Glucose 228 H D (75-99) mg/dL Calcium 9.3 (8.4-10.1) mg/dL Troponin I < 0.017 (0.00-0.06) ng/mL C-Reactive Protein 3.1 H (0.2-0.8) mg/dL NT-Pro-B Natriuret Pep 2321 H (0-1000) pg/mL Urine Color (YELLOW) Urine Appearance (CLEAR) Urine pH (4.5-8.0) Ur Specific Marshall (1.003-1.020) Urine Protein (NEGATIVE) mg/dL Urine Glucose (UA) (NEGATIVE) mg/dL Urine Ketones (NEGATIVE) mg/dL Urine Occult Blood (NEGATIVE) Urine Nitrite (NEGATIVE) Urine Bilirubin (NEGATIVE) Urine Urobilinogen (0.2-1.0) EU/dL Ur Leukocyte Esterase (NEGATIVE) Urine RBC (0-5) /HPF Urine WBC (0-5) /HPF Ur Squamous Epith Cells (NOT SEEN) /HPF Urine Bacteria (NOT SEEN) /HPF Urinalysis Comment 02/22/19 Range/Units 11:30 WBC (5.0-10.0) 10^3/uL RBC (4.00-5.50) 10^6/uL Hgb (12.0-16.0) g/dL Hct (37.0-47.0) % MCV (82.0-94.0) fL MCH (27.0-32.0) pg MCHC (33.0-38.0) g/dL RDW Coeff of Blaze (11.0-15.0) % Plt Count (150-400) 10^3/uL Neut % (Auto) (35-85) % Lymph % (Auto) (10-55) % [place] % (Auto) (0-16) % Eos % (Auto) (0-5) % Baso % (Auto) (0-3) % Neut # (Auto) (1.80-7.00) 10^3/uL Lymph # (Auto) (1.00-4.80) 10^3/uL [place] # (Auto) (0.00-0.80) 10^3/uL Eos # (Auto) (0.00-0.45) 10^3/uL Baso # (Auto) 10^3/uL D-Dimer, Quantitative (0.00-0.50) Sodium (136-145) mEq/L Potassium (3.5-5.0) mEq/L Chloride (98-106) mEq/L Carbon Dioxide (21-32) mmol/L BUN (7-18) mg/dL Creatinine (0.6-1.0) mg/dL Est Cr Clr Drug Dosing mL/min Estimated GFR (MDRD) (>=60) mL/min Glucose (75-99) mg/dL Calcium (8.4-10.1) mg/dL Troponin I (0.00-0.06) ng/mL C-Reactive Protein (0.2-0.8) mg/dL NT-Pro-B Natriuret Pep (0-1000) pg/mL Urine Color Yellow (YELLOW) Urine Appearance Slightly cloudy (CLEAR) Urine pH 6.0 (4.5-8.0) Ur Specific [place] 1.015 (1.003-1.020) Urine Protein 30 H (NEGATIVE) mg/dL Urine Glucose (UA) Negative (NEGATIVE) mg/dL Urine Ketones Negative (NEGATIVE) mg/dL Urine Occult Blood Trace-intact H (NEGATIVE) Urine Nitrite Positive H (NEGATIVE) Urine Bilirubin Negative (NEGATIVE) Urine Urobilinogen 0.2 (0.2-1.0) EU/dL Ur Leukocyte Esterase Trace H (NEGATIVE) Urine RBC 0-5 (0-5) /HPF Urine WBC 5-10 H (0-5) /HPF Ur Squamous Epith Cells Occasional H (NOT SEEN) /HPF Urine Bacteria Moderate H (NOT SEEN) /HPF Urinalysis Comment Meds: Medications Discontinued Medications Generic Name Dose Route Start Last Admin Trade Name Freq PRN Reason Stop Dose Admin Albuterol/Ipratropium 3 ml 02/22/19 10:29 02/22/19 12:15 Duoneb 3.0-0.5 Mg/3 Ml NEB 3 ml Q4H PRN Administration Dyspnea Ceftriaxone Sodium 1 gm 02/22/19 12:00 02/22/19 12:06 Rocephin IVPUSH 1 gm Q24H ERIC Administration Furosemide 40 mg 02/22/19 11:29 02/22/19 13:03 Lasix IVPUSH 02/22/19 11:30 40 mg ONETIME ONE Administration Heparin Sodium (Porcine) 500 units 02/22/19 12:44 02/22/19 13:08 Heparin Lock Flush 100 Units/Ml FLUSH 02/22/19 12:45 500 units ONETIME ONE Administration - Re-Assessments/Exams Free Text/Narrative Re-Assessment/Exam: 02/22/19 Patient more stable after arrival to ER per nurse from [facility]. Continued to have mild expiratory wheezing. Oxygen able to be reduced. Chest xray unremarkable. Labs are stable, BNP is mildly elevated. Will give dose of IV lasix while in ER. 1200- Patient feeling better. As she has been having more abdominal issues/nausea and discomfort, will cover potential for aspiration pneumonia and UTI with daily IV Rocephin. Use oxygen as needed. Nebs as needed. Return back to [place]. Patient agreeable to plan Departure - Departure Time of Disposition: 11:57 Disposition: Home, Self-Care 01 Condition: Fair Clinical Impression: Aspiration into airway - Discharge Information *PRESCRIPTION DRUG MONITORING PROGRAM REVIEWED*: No *COPY OF PRESCRIPTION DRUG MONITORING REPORT IN PATIENT ASHKAN: No Referrals: Óscar Wang MD [Primary Care Provider] - Forms: ED Department Discharge Additional Instructions: 1. Push fluids 2. Rocephin 1 gm IV daily for 5 days (first dose given here) 3. Duonebs qID and every 4 hours PRN at night 4. Oxygen as needed 5. Stop Macrobid 6. Follow up with Sue on Wednesday at rounds as needed. - My Orders Last 24 Hours: My Active Orders 02/22/19 10:20 Oxygen Therapy, ED [RC] ASDIRECTED 02/22/19 10:29 RT Aerosol Therapy [RC] ASDIRECTED Chest 2V [CR] Stat 02/22/19 11:30 CULTURE URINE [RM] Urgent - Assessment/Plan Last 24 Hours: My Active Orders 02/22/19 10:20 Oxygen Therapy, ED [RC] ASDIRECTED 02/22/19 10:29 RT Aerosol Therapy [RC] ASDIRECTED Chest 2V [CR] Stat 02/22/19 11:30 CULTURE URINE [RM] Urgent
[2019-02-22] MEDS ORDERED: cefTRIAXone 1 GM Vial IVPUSH SCH (12:00)
== END 2019-02-22 13:15 | disposition home or self-care (01) ==
LOC: CC.ED 10:20
DX: N39.0 Urinary tract infection, site not specified (principal); R06.02 Shortness of breath; I13.0 Hypertensive heart and chronic kidney disease with heart failure and stage 1 through stage 4 chronic kidney disease, or unspecified chronic kidney disease; I50.9 Heart failure, unspecified; N18.9 Chronic kidney disease, unspecified; I48.91 Unspecified atrial fibrillation; K21.9 Gastro-esophageal reflux disease without esophagitis; Z88.1 Allergy status to other antibiotic agents; Z88.0 Allergy status to penicillin; Z88.2 Allergy status to sulfonamides; Z79.899 Other long term (current) drug therapy
CPT/HCPCS: 71046; 80048; 81001; 83880; 84484; 85025; 85379; 86140; 87086; 87088; 87186; 94640; 96374; 96375; 99284; 99285-25; J0696; J1642; J1940; J7620-GY

== ENCOUNTER 2019-06-20 08:48 | Inpatient (IN) | payer MEDICARE, OTHER ==
[2019-06-20] MEDS: Ondansetron 4 MG Tab.DIS PO PRN (16:13)
[2019-06-20] MEDS: Pantoprazole 40 MG Vial IVPUSH SCH (16:13)
[2019-06-20] MEDS: Sodium Chloride 0.9% 1,000 ML IV SCH (16:14)
[2019-06-20] MEDS ORDERED: Polyvinyl Alcohol 1.4% Ophth Soln 15 ML Bottle EYEBOTH PRN (17:24)
[2019-06-20] MEDS ORDERED: Calcium Carbonate 500 MG Tab.Chew PO PRN (17:24)
[2019-06-20] MEDS ORDERED: Acetaminophen 325 MG Tab PO PRN (17:24)
[2019-06-20] MEDS ORDERED: **PTOM** Metoprolol Tartrate 50 MG Tab PO SCH (20:00)
[2019-06-20] MEDS ORDERED: APIXABAN 2.5 MG PO SCH (20:00)
[2019-06-20] MEDS ORDERED: ACETAMINOPHEN 500 MG PO SCH (20:00)
[2019-06-20] MEDS ORDERED: MELATONIN 5 MG PO SCH (20:00)
[2019-06-20] MEDS ORDERED: Insulin Glargine,Human Rec. Analog 100 Units/ML 3 ML Pen SUBCUT SCH (20:00)
[2019-06-20] MEDS: Insulin Glargine,Human Rec. Analog 100 Units/ML 3 ML Pen SUBCUT SCH (21:59)
[2019-06-20] MEDS: Acetaminophen 500 MG Tab PO SCH (22:00)
[2019-06-20] MEDS: MELATONIN 5 MG PO SCH (22:02)
[2019-06-20] MEDS: APIXABAN 2.5 MG PO SCH (22:02)
[2019-06-20] MEDS: Metoprolol Tartrate 50 MG Tab PO SCH (22:03)
[2019-06-21] MEDS: Metoprolol Tartrate 50 MG Tab PO SCH ×2 (07:43→21:32)
[2019-06-21] MEDS: VITAMIN D3 2000 UNIT PO SCH (07:44)
[2019-06-21] MEDS: APIXABAN 2.5 MG PO SCH ×2 (07:44→21:32)
[2019-06-21] MEDS: POTASSIUM CHLORIDE 40 MEQ PO SCH (07:45)
[2019-06-21] MEDS: [UNRECOGNIZED DRUG - OTHER] PO SCH (07:45)
[2019-06-21] MEDS: Pantoprazole 40 MG Vial IVPUSH SCH (07:50)
--- NOTE | 2019-06-21 09:25 | PCM.PN ---
- General Info Date of Service: 06/21/19 Admission Dx/Problem (Free Text): Abdominal Pain Diarrhea Functional Status: Reports: Pain Controlled, Ambulating. Denies: Tolerating Diet (states had clear liquids this am and now experiencing more pain in her abdomen again) - Review of Systems General: Reports: Fever (low grade fevers), Weakness, Fatigue, Malaise HEENT: Denies: Ear Pain, Sinus Congestion, Sore Throat Pulmonary: Reports: Shortness of Breath. Denies: Cough Cardiovascular: Reports: Edema. Denies: Chest Pain, Lightheadedness Gastrointestinal: Reports: Abdominal Pain, Diarrhea, Nausea. Denies: Vomiting Genitourinary: Reports: No Symptoms Musculoskeletal: Reports: No Symptoms Skin: Reports: No Symptoms Neurological: Reports: No Symptoms - Patient Data Vitals - Most Recent: Last Vital Signs Temp 98.3 F 06/21/19 08:00 Pulse 70 06/21/19 08:00 Resp 16 06/21/19 08:00 BP 114/52 L 06/21/19 08:00 Pulse Ox 96 06/21/19 08:00 Weight - Most Recent: 142 lb 12.8 oz I&O - Last 24 Hours: Intake & Output 06/20/19 06/21/19 06/21/19 22:59 06:59 14:59 Intake Total 350 465 Output Total 200 500 Balance 150 -35 Lab Results Last 24 Hours: Laboratory Results - last 24 hr 06/20/19 06/20/19 06/20/19 Range/Units 15:58 15:58 17:08 WBC 19.8 H (5.0-10.0) 10^3/uL RBC 3.86 L (4.00-5.50) 10^6/uL Hgb 10.5 L (12.0-16.0) g/dL Hct 32.3 L (37.0-47.0) % MCV 83.7 (82.0-94.0) fL MCH 27.2 (27.0-32.0) pg MCHC 32.5 L (33.0-38.0) g/dL RDW Coeff of Blaze 16.3 H (11.0-15.0) % Plt Count 236 (150-400) 10^3/uL Neut % (Auto) 28.5 L (35-85) % Lymph % (Auto) 67.2 H (10-55) % Kay % (Auto) 4.0 (0-16) % Eos % (Auto) 0.1 (0-5) % Baso % (Auto) 0.2 (0-3) % Neut # (Auto) 5.65 (1.80-7.00) 10^3/uL Lymph # (Auto) 13.31 H (1.00-4.80) 10^3/uL Kay # (Auto) 0.80 (0.00-0.80) 10^3/uL Eos # (Auto) 0.02 (0.00-0.45) 10^3/uL Baso # (Auto) 0.03 10^3/uL Sodium 132 L (136-145) mEq/L Potassium 4.2 (3.5-5.0) mEq/L Chloride 98 (98-106) mEq/L Carbon Dioxide 23 (21-32) mmol/L BUN 35 H (7-18) mg/dL Creatinine 1.4 H (0.6-1.0) mg/dL Est Cr Clr Drug Dosing 27.68 mL/min Estimated GFR (MDRD) 36 L (>=60) mL/min Glucose 172 H (75-99) mg/dL POC Glucose 157 H (75-105) mg/dl Calcium 9.2 (8.4-10.1) mg/dL Total Bilirubin 0.5 (0.0-1.0) mg/dL AST 31 (15-37) U/L ALT 34 (12-78) U/L Alkaline Phosphatase 377 H (46-116) U/L C-Reactive Protein 0.6 (0.2-0.8) mg/dL Total Protein 6.4 (6.4-8.2) g/dL Albumin 3.3 L (3.4-5.0) g/dL Urine Color (YELLOW) Urine Appearance (CLEAR) Urine pH (4.5-8.0) Ur Specific Davis (1.003-1.020) Urine Protein (NEGATIVE) mg/dL Urine Glucose (UA) (NEGATIVE) mg/dL Urine Ketones (NEGATIVE) mg/dL Urine Occult Blood (NEGATIVE) Urine Nitrite (NEGATIVE) Urine Bilirubin (NEGATIVE) Urine Urobilinogen (0.2-1.0) EU/dL Ur Leukocyte Esterase (NEGATIVE) Urine RBC (0-5) /HPF Urine WBC (0-5) /HPF Ur Epithelial Cells (NOT SEEN) /HPF Urine Bacteria (NOT SEEN) /HPF 06/20/19 06/20/19 06/21/19 Range/Units 19:20 21:48 07:34 WBC (5.0-10.0) 10^3/uL RBC (4.00-5.50) 10^6/uL Hgb (12.0-16.0) g/dL Hct (37.0-47.0) % MCV (82.0-94.0) fL MCH (27.0-32.0) pg MCHC (33.0-38.0) g/dL RDW Coeff of Blaze (11.0-15.0) % Plt Count (150-400) 10^3/uL Neut % (Auto) (35-85) % Lymph % (Auto) (10-55) % Kay % (Auto) (0-16) % Eos % (Auto) (0-5) % Baso % (Auto) (0-3) % Neut # (Auto) (1.80-7.00) 10^3/uL Lymph # (Auto) (1.00-4.80) 10^3/uL Kay # (Auto) (0.00-0.80) 10^3/uL Eos # (Auto) (0.00-0.45) 10^3/uL Baso # (Auto) 10^3/uL Sodium (136-145) mEq/L Potassium (3.5-5.0) mEq/L Chloride (98-106) mEq/L Carbon Dioxide (21-32) mmol/L BUN (7-18) mg/dL Creatinine (0.6-1.0) mg/dL Est Cr Clr Drug Dosing mL/min Estimated GFR (MDRD) (>=60) mL/min Glucose (75-99) mg/dL POC Glucose 144 H 106 H (75-105) mg/dl Calcium (8.4-10.1) mg/dL Total Bilirubin (0.0-1.0) mg/dL AST (15-37) U/L ALT (12-78) U/L Alkaline Phosphatase (46-116) U/L C-Reactive Protein (0.2-0.8) mg/dL Total Protein (6.4-8.2) g/dL Albumin (3.4-5.0) g/dL Urine Color Jaylyn (YELLOW) Urine Appearance Cloudy (CLEAR) Urine pH 7.0 (4.5-8.0) Ur Specific Davis 1.015 (1.003-1.020) Urine Protein Trace H (NEGATIVE) mg/dL Urine Glucose (UA) Negative (NEGATIVE) mg/dL Urine Ketones Negative (NEGATIVE) mg/dL Urine Occult Blood Large H (NEGATIVE) Urine Nitrite Negative (NEGATIVE) Urine Bilirubin Negative (NEGATIVE) Urine Urobilinogen 0.2 (0.2-1.0) EU/dL Ur Leukocyte Esterase Trace H (NEGATIVE) Urine RBC >100 H (0-5) /HPF Urine WBC 10-20 H (0-5) /HPF Ur Epithelial Cells Few H (NOT SEEN) /HPF Urine Bacteria Moderate H (NOT SEEN) /HPF 06/21/19 06/21/19 Range/Units 08:27 08:45 WBC 13.2 H (5.0-10.0) 10^3/uL RBC 3.58 L (4.00-5.50) 10^6/uL Hgb 9.7 L (12.0-16.0) g/dL Hct 30.6 L (37.0-47.0) % MCV 85.5 (82.0-94.0) fL MCH 27.1 (27.0-32.0) pg MCHC 31.7 L (33.0-38.0) g/dL RDW Coeff of Blaze 16.6 H (11.0-15.0) % Plt Count 204 (150-400) 10^3/uL Neut % (Auto) 21.1 L (35-85) % Lymph % (Auto) 74.3 H (10-55) % Kay % (Auto) 4.1 (0-16) % Eos % (Auto) 0.3 (0-5) % Baso % (Auto) 0.2 (0-3) % Neut # (Auto) 2.77 (1.80-7.00) 10^3/uL Lymph # (Auto) 9.77 H (1.00-4.80) 10^3/uL Kay # (Auto) 0.54 (0.00-0.80) 10^3/uL Eos # (Auto) 0.04 (0.00-0.45) 10^3/uL Baso # (Auto) 0.03 10^3/uL Sodium 136 (136-145) mEq/L Potassium 4.1 (3.5-5.0) mEq/L Chloride 102 (98-106) mEq/L Carbon Dioxide 25 (21-32) mmol/L BUN 29 H (7-18) mg/dL Creatinine 1.4 H (0.6-1.0) mg/dL Est Cr Clr Drug Dosing 27.68 mL/min Estimated GFR (MDRD) 36 L (>=60) mL/min Glucose 126 H D (75-99) mg/dL POC Glucose (75-105) mg/dl Calcium 8.8 (8.4-10.1) mg/dL Total Bilirubin (0.0-1.0) mg/dL AST (15-37) U/L ALT (12-78) U/L Alkaline Phosphatase (46-116) U/L C-Reactive Protein 0.5 (0.2-0.8) mg/dL Total Protein (6.4-8.2) g/dL Albumin (3.4-5.0) g/dL Urine Color (YELLOW) Urine Appearance (CLEAR) Urine pH (4.5-8.0) Ur Specific Davis (1.003-1.020) Urine Protein (NEGATIVE) mg/dL Urine Glucose (UA) (NEGATIVE) mg/dL Urine Ketones (NEGATIVE) mg/dL Urine Occult Blood (NEGATIVE) Urine Nitrite (NEGATIVE) Urine Bilirubin (NEGATIVE) Urine Urobilinogen (0.2-1.0) EU/dL Ur Leukocyte Esterase (NEGATIVE) Urine RBC (0-5) /HPF Urine WBC (0-5) /HPF Ur Epithelial Cells (NOT SEEN) /HPF Urine Bacteria (NOT SEEN) /HPF Sergei Results Last 24 Hours: Microbiology 06/20/19 19:24 C. difficile DNA Amplification - Final Stool / Feces NEGATIVE CDIFF BY DNA REFERENCE RANGE: NEGATIVE Med Orders - Current: Current Medications Acetaminophen (Tylenol) 650 mg PO Q4H PRN PRN Reason: Pain Acetaminophen (Tylenol Extra Strength) 500 mg PO 2200 [facility] Last Admin: 06/20/19 22:00 Dose: 500 mg Artificial Tears (Liquitears 1.4% Ophth Soln) 1 - 2 ml EYEBOTH Q1H PRN PRN Reason: Dry Eyes Calcium Carbonate/Glycine (Tums) 1,000 mg PO QID PRN PRN Reason: gastric distress Ceftriaxone Sodium (Rocephin) 1 gm IVPUSH DAILY [facility] Sodium Chloride (Normal Saline) 1,000 mls @ 50 mls/hr IV ASDIRECTED [facility] Last Admin: 06/20/19 16:14 Dose: 50 mls/hr Insulin Glargine (Lantus Solostar) 10 units SUBCUT 2200 [facility] Last Admin: 06/20/19 21:59 Dose: 10 units Metoprolol Tartrate (Lopressor) 75 mg PO BID@0800,2200 [facility] Last Admin: 06/21/19 07:43 Dose: 75 mg Ptom Vitamin D3 (2,000 Unit Cap) 2,000 unit PO DAILY [facility] Last Admin: 06/21/19 07:44 Dose: 2,000 unit Ptom Ibrutinib (280 Mg Tab) 280 mg PO 1300 [facility] Ptom Multi-Day (Plus Iron Tablet) 1 tab PO DAILY [facility] Last Admin: 06/21/19 07:45 Dose: 1 tab Ptom Potassium Chloride [Klor-Con M20] 40 Meq 40 meq PO DAILY [facility] Last Admin: 06/21/19 07:45 Dose: 40 meq Ptom Apixaban [ (Eliquis] 2.5 Mg Tab) 2.5 mg PO BID@0800,2200 [facility] Last Admin: 06/21/19 07:44 Dose: 2.5 mg Ptom Melatonin 5 (Mg Tab) 5 mg PO 2200 [facility] Last Admin: 06/20/19 22:02 Dose: 5 mg Ondansetron HCl (Zofran Odt) 4 mg PO Q4H PRN PRN Reason: nausea, able to take PO Last Admin: 06/20/19 16:13 Dose: 4 mg Pantoprazole Sodium (Protonix Iv) 40 mg IVPUSH DAILY [facility] Last Admin: 06/21/19 07:50 Dose: 40 mg Discontinued Medications Acetaminophen (Tylenol Extra Strength) 500 mg PO BEDTIME [facility] Last Admin: 06/20/19 21:11 Dose: Not Given Insulin Glargine (Lantus Solostar) 10 units SUBCUT BEDTIME [facility] Last Admin: 06/20/19 21:10 Dose: Not Given Metoprolol Tartrate (Lopressor) 75 mg PO BID [facility] Last Admin: 06/20/19 21:10 Dose: Not Given Ptom Apixaban [ (Eliquis] 2.5 Mg Tab) 2.5 mg PO BID [facility] Last Admin: 06/20/19 21:09 Dose: Not Given Ptom Melatonin 5 (Mg Tab) 5 mg PO BEDTIME [facility] Last Admin: 06/20/19 21:10 Dose: Not Given - Exam General: Alert, Oriented HEENT: Mucous Membr. Moist/[place] Neck: Supple Lungs: Clear to Auscultation, Normal Respiratory Effort Cardiovascular: Regular Rate, Regular Rhythm GI/Abdominal Exam: Soft, Tender (tender diffusely throughout), Abnormal Bowel Sounds (hyperactive) Extremities: Normal Inspection, Pedal Edema (1-2+ edema, nonpitting in feet, right greater than left) - Problem List & Annotations (1) Abdominal pain SNOMED Code(s): 17324034 Code(s): R10.9 - UNSPECIFIED ABDOMINAL PAIN Status: Acute Priority: High Current Visit: Yes Qualifiers: Abdominal location: generalized Qualified Code(s): R10.84 - Generalized abdominal pain (2) Diarrhea SNOMED Code(s): 72375909 Code(s): R19.7 - DIARRHEA, UNSPECIFIED Status: Acute Priority: High Current Visit: Yes Qualifiers: Diarrhea type: unspecified type Qualified Code(s): R19.7 - Diarrhea, unspecified - Problem List Review Problem List Initiated/Reviewed/Updated: Yes - My Orders Last 24 Hours: My Active Orders 06/21/19 09:19 Abdomen Pelvis w Cont [CT] Routine 06/21/19 09:30 cefTRIAXone [Rocephin] 1 gm IVPUSH Q24H - Assessment Assessment:: Abdominal Pain diarrhea - Plan Plan:: Patient admits to increased abdominal discomfort after having clear liquids this am. Pain is diffuse. Low grade fever this am. States last loose stool was 0300. C diff was negative. Awaiting culture. WBC is down this am at 13.2 , does have history of CLL. CRP is negative. Creatinine stable at 1.4. UA is positive. Will obtain urine culture. Start Rocephin. Obtain CT scan of abdomen and pelvis. Repeat labs in am.
[2019-06-21] MEDS: Sodium Chloride 0.9% 1,000 ML IV SCH (09:32)
[2019-06-21] MEDS: cefTRIAXone 1 GM Vial IVPUSH SCH (09:35)
[2019-06-21] MEDS ORDERED: Iopamidol 755 Mg/ML 100 ML Bottle IVPUSH ONE (13:05)
[2019-06-21] MEDS ORDERED: Barium Sulfate Oral Susp 450 ML Bottle PO ONE (13:42)
[2019-06-21] MEDS: IBRUTINIB 280 MG PO SCH (13:55)
[2019-06-21] MEDS: Loperamide 2 MG Cap PO PRN ×2 (18:44→20:49)
[2019-06-21] MEDS: Azithromycin 500 MG in Sodium Chloride 0.9% 250 ML IV SCH (21:25)
[2019-06-21] MEDS: MELATONIN 5 MG PO SCH (21:33)
[2019-06-21] MEDS: Acetaminophen 500 MG Tab PO SCH (21:34)
[2019-06-21] MEDS: Insulin Glargine,Human Rec. Analog 100 Units/ML 3 ML Pen SUBCUT SCH (21:58)
[2019-06-21] MEDS: Ondansetron 4 MG Tab.DIS PO PRN (22:03)
[2019-06-22] MEDS: Sodium Chloride 0.9% 1,000 ML IV SCH (05:25)
[2019-06-22] MEDS: APIXABAN 2.5 MG PO SCH ×2 (07:39→21:29)
[2019-06-22] MEDS: VITAMIN D3 2000 UNIT PO SCH (07:39)
[2019-06-22] MEDS: Metoprolol Tartrate 50 MG Tab PO SCH ×2 (07:40→21:17)
[2019-06-22] MEDS: [UNRECOGNIZED DRUG - OTHER] PO SCH (07:41)
[2019-06-22] MEDS: POTASSIUM CHLORIDE 40 MEQ PO SCH (07:41)
[2019-06-22] MEDS: Pantoprazole 40 MG Vial IVPUSH SCH (07:44)
[2019-06-22] MEDS: cefTRIAXone 1 GM Vial IVPUSH SCH (07:48)
[2019-06-22] MEDS: CHOLESTYRAMINE PO SCH ×2 (10:38→19:26)
[2019-06-22] MEDS: IBRUTINIB 280 MG PO SCH (13:04)
[2019-06-22] MEDS: Ondansetron 4 MG Tab.DIS PO PRN (20:35)
[2019-06-22] MEDS: Azithromycin 500 MG in Sodium Chloride 0.9% 250 ML IV SCH (20:36)
--- NOTE | 2019-06-22 21:11 | PCM.PN ---
- General Info Date of Service: 06/22/19 Admission Dx/Problem (Free Text): Abdominal Pain Diarrhea Functional Status: Reports: Pain Controlled, Tolerating Diet, Ambulating - Review of Systems General: Reports: Fatigue. Denies: Fever, Weakness HEENT: Reports: No Symptoms Pulmonary: Denies: Shortness of Breath, Cough Cardiovascular: Reports: Edema. Denies: Chest Pain, Lightheadedness Gastrointestinal: Reports: Abdominal Pain, Diarrhea, Nausea Genitourinary: Reports: No Symptoms Musculoskeletal: Reports: No Symptoms Skin: Reports: No Symptoms Neurological: Reports: Weakness - Patient Data Vitals - Most Recent: Last Vital Signs Temp 97.8 F 06/22/19 20:00 Pulse 66 06/22/19 20:00 Resp 20 06/22/19 20:00 BP 140/57 L 06/22/19 20:00 Pulse Ox 100 06/22/19 20:00 Weight - Most Recent: 142 lb 12.8 oz I&O - Last 24 Hours: Intake & Output 06/22/19 06/22/19 06/22/19 06:59 14:59 22:59 Intake Total 1414 1200 Output Total 550 50 800 Balance 864 -50 400 Lab Results Last 24 Hours: Laboratory Results - last 24 hr 06/21/19 06/22/19 06/22/19 Range/Units 21:25 05:11 07:00 WBC 12.5 H (5.0-10.0) 10^3/uL RBC 3.30 L (4.00-5.50) 10^6/uL Hgb 9.1 L (12.0-16.0) g/dL Hct 28.4 L (37.0-47.0) % MCV 86.1 (82.0-94.0) fL MCH 27.6 (27.0-32.0) pg MCHC 32.0 L (33.0-38.0) g/dL RDW Coeff of Blaze 16.6 H (11.0-15.0) % Plt Count 203 (150-400) 10^3/uL Neut % (Auto) 18.0 L (35-85) % Lymph % (Auto) 78.0 H (10-55) % Moca % (Auto) 3.3 (0-16) % Eos % (Auto) 0.5 (0-5) % Baso % (Auto) 0.2 (0-3) % Neut # (Auto) 2.25 (1.80-7.00) 10^3/uL Lymph # (Auto) 9.73 H (1.00-4.80) 10^3/uL Moca # (Auto) 0.41 (0.00-0.80) 10^3/uL Eos # (Auto) 0.06 (0.00-0.45) 10^3/uL Baso # (Auto) 0.03 10^3/uL ESR Cancelled Sodium 138 (136-145) mEq/L Potassium 3.3 L (3.5-5.0) mEq/L Chloride 108 H (98-106) mEq/L Carbon Dioxide 21 (21-32) mmol/L BUN 19 H (7-18) mg/dL Creatinine 1.2 H (0.6-1.0) mg/dL Est Cr Clr Drug Dosing 32.29 mL/min Estimated GFR (MDRD) 43 L (>=60) mL/min Glucose 99 (75-99) mg/dL POC Glucose 152 H (75-105) mg/dl Calcium 8.4 (8.4-10.1) mg/dL Total Bilirubin 0.2 (0.0-1.0) mg/dL Direct Bilirubin 0.1 (0.0-0.3) mg/dL Indirect Bilirubin 0.1 mg/dL AST 21 (15-37) U/L ALT 21 (12-78) U/L Alkaline Phosphatase 246 H (46-116) U/L Lactate Dehydrogenase 103 (100-190) U/L Total Protein 5.1 L (6.4-8.2) g/dL Albumin 2.5 L (3.4-5.0) g/dL Globulin 2.6 L (2.7-3.2) g/dL Albumin/Globulin Ratio 1.0 (0.9-1.8) 06/22/19 06/22/19 06/22/19 Range/Units 07:38 11:41 17:30 WBC (5.0-10.0) 10^3/uL RBC (4.00-5.50) 10^6/uL Hgb (12.0-16.0) g/dL Hct (37.0-47.0) % MCV (82.0-94.0) fL MCH (27.0-32.0) pg MCHC (33.0-38.0) g/dL RDW Coeff of Blaze (11.0-15.0) % Plt Count (150-400) 10^3/uL Neut % (Auto) (35-85) % Lymph % (Auto) (10-55) % Moca % (Auto) (0-16) % Eos % (Auto) (0-5) % Baso % (Auto) (0-3) % Neut # (Auto) (1.80-7.00) 10^3/uL Lymph # (Auto) (1.00-4.80) 10^3/uL Moca # (Auto) (0.00-0.80) 10^3/uL Eos # (Auto) (0.00-0.45) 10^3/uL Baso # (Auto) 10^3/uL ESR Sodium (136-145) mEq/L Potassium (3.5-5.0) mEq/L Chloride (98-106) mEq/L Carbon Dioxide (21-32) mmol/L BUN (7-18) mg/dL Creatinine (0.6-1.0) mg/dL Est Cr Clr Drug Dosing mL/min Estimated GFR (MDRD) (>=60) mL/min Glucose (75-99) mg/dL POC Glucose 91 143 H 140 H (75-105) mg/dl Calcium (8.4-10.1) mg/dL Total Bilirubin (0.0-1.0) mg/dL Direct Bilirubin (0.0-0.3) mg/dL Indirect Bilirubin mg/dL AST (15-37) U/L ALT (12-78) U/L Alkaline Phosphatase (46-116) U/L Lactate Dehydrogenase (100-190) U/L Total Protein (6.4-8.2) g/dL Albumin (3.4-5.0) g/dL Globulin (2.7-3.2) g/dL Albumin/Globulin Ratio (0.9-1.8) Sergei Results Last 24 Hours: Microbiology 06/21/19 17:25 Urine Culture - Final Urine, Clean Catch Escherichia Coli Med Orders - Current: Current Medications Acetaminophen (Tylenol) 650 mg PO Q4H PRN PRN Reason: Pain Acetaminophen (Tylenol Extra Strength) 500 mg PO 2200 [facility] Last Admin: 06/21/19 21:34 Dose: 500 mg Artificial Tears (Liquitears 1.4% Ophth Soln) 1 - 2 ml EYEBOTH Q1H PRN PRN Reason: Dry Eyes Calcium Carbonate/Glycine (Tums) 1,000 mg PO QID PRN PRN Reason: gastric distress Ceftriaxone Sodium (Rocephin) 1 gm IVPUSH DAILY [facility] Last Admin: 06/22/19 07:48 Dose: 1 gm Sodium Chloride (Normal Saline) 1,000 mls @ 50 mls/hr IV ASDIRECTED [facility] Last Admin: 06/22/19 05:25 Dose: 50 mls/hr Azithromycin 500 mg/ Sodium (Chloride) 250 mls @ 250 mls/hr IV Q24H [facility] Last Admin: 06/22/19 20:36 Dose: 250 mls/hr Insulin Glargine (Lantus Solostar) 10 units SUBCUT 2200 [facility] Last Admin: 06/21/19 21:58 Dose: 10 units Loperamide HCl (Imodium) 2 mg PO ASDIRECTED PRN PRN Reason: Diarrhea Last Admin: 06/21/19 20:49 Dose: 2 mg Metoprolol Tartrate (Lopressor) 75 mg PO BID@0800,2200 [facility] Last Admin: 06/22/19 07:40 Dose: 75 mg Ptom Vitamin D3 (2,000 Unit Cap) 2,000 unit PO DAILY [facility] Last Admin: 06/22/19 07:39 Dose: 2,000 unit Ptom Ibrutinib (280 Mg Tab) 280 mg PO 1300 [facility] Last Admin: 06/22/19 13:04 Dose: 280 mg Ptom Multi-Day (Plus Iron Tablet) 1 tab PO DAILY [facility] Last Admin: 06/22/19 07:41 Dose: 1 tab Ptom Potassium Chloride [Klor-Con M20] 40 Meq 40 meq PO DAILY [facility] Last Admin: 06/22/19 07:41 Dose: 40 meq Ptom Apixaban [ (Eliquis] 2.5 Mg Tab) 2.5 mg PO BID@0800,2200 [facility] Last Admin: 06/22/19 07:39 Dose: 2.5 mg Ptom Melatonin 5 (Mg Tab) 5 mg PO 2200 [facility] Last Admin: 06/21/19 21:33 Dose: 5 mg Cholestyramine (Powder) 2 gm PO BID [facility] Last Admin: 06/22/19 19:26 Dose: 2 gm Ondansetron HCl (Zofran Odt) 4 mg PO Q4H PRN PRN Reason: nausea, able to take PO Last Admin: 06/22/19 20:35 Dose: 4 mg Pantoprazole Sodium (Protonix Iv) 40 mg IVPUSH DAILY [facility] Last Admin: 06/22/19 07:44 Dose: 40 mg Discontinued Medications Acetaminophen (Tylenol Extra Strength) 500 mg PO BEDTIME [facility] Last Admin: 06/20/19 21:11 Dose: Not Given Barium Sulfate (Readi-Cat 2) 900 ml PO ONETIME ONE Stop: 06/21/19 13:43 Last Admin: 06/21/19 14:59 Dose: 900 ml Insulin Glargine (Lantus Solostar) 10 units SUBCUT BEDTIME [facility] Last Admin: 06/20/19 21:10 Dose: Not Given Iopamidol (Isovue-370 (76%)) 100 ml IVPUSH ONETIME ONE Stop: 06/21/19 13:06 Last Admin: 06/21/19 15:23 Dose: 100 ml Metoprolol Tartrate (Lopressor) 75 mg PO BID [facility] Last Admin: 06/20/19 21:10 Dose: Not Given Ptom Apixaban [ (Eliquis] 2.5 Mg Tab) 2.5 mg PO BID [facility] Last Admin: 06/20/19 21:09 Dose: Not Given Ptom Melatonin 5 (Mg Tab) 5 mg PO BEDTIME [facility] Last Admin: 06/20/19 21:10 Dose: Not Given - Exam General: Alert, Oriented HEENT: Mucous Membr. Moist/[place] Neck: Supple Lungs: Clear to Auscultation, Normal Respiratory Effort Cardiovascular: Regular Rate, Regular Rhythm GI/Abdominal Exam: Normal Bowel Sounds, Soft, Tender Extremities: Normal Inspection, Pedal Edema (1-2 RLE, pitting. 1+ LLE extremity ) Skin: Warm, Dry Neurological: No New Focal Deficit - Problem List & Annotations (1) Abdominal pain SNOMED Code(s): 05565510 Code(s): R10.9 - UNSPECIFIED ABDOMINAL PAIN Status: Acute Priority: High Current Visit: Yes Qualifiers: Abdominal location: generalized Qualified Code(s): R10.84 - Generalized abdominal pain (2) Diarrhea SNOMED Code(s): 54224944 Code(s): R19.7 - DIARRHEA, UNSPECIFIED Status: Acute Priority: High Current Visit: Yes Qualifiers: Diarrhea type: unspecified type Qualified Code(s): R19.7 - Diarrhea, unspecified - Problem List Review Problem List Initiated/Reviewed/Updated: Yes - My Orders Last 24 Hours: My Active Orders 06/21/19 21:00 Azithromycin [Zithromax] 500 mg Sodium Chloride 0.9% [Normal Saline] 250 ml IV Q24H 06/22/19 08:48 Patient Status [ADT] Routine - Assessment Assessment:: Abdominal Pain diarrhea - Plan Plan:: Patient admits to increased abdominal discomfort after having clear liquids this am. Pain is diffuse. Low grade fever this am. States last loose stool was 0300. C diff was negative. Awaiting culture. WBC is down this am at 13.2 , does have history of CLL. CRP is negative. Creatinine stable at 1.4. UA is positive. Will obtain urine culture. Start Rocephin. Obtain CT scan of abdomen and pelvis. Repeat labs in am. 06-22-2019 Patient had significant diarrhea yesterday through early am. States "seems to have settled a bit this am". No fevers. Admits to abdominal cramping. Did attempt to advance diet to toast last evening, had emesis at [address] scan results reviewed last evening, do show right subsegmental consolidation. Added Zithromax as well. Labs this am show WBC of 12.5. Potassium 3.3. Other labs done for Dr. Drake. Urine culture shows e coli, sensitive to Rocephin. Will transfer to acute inpatient. Add Questran. Continue IV antibiotics. Repeat labs in am.
[2019-06-22] MEDS: Acetaminophen 500 MG Tab PO SCH (21:19)
[2019-06-22] MEDS: Loperamide 2 MG Cap PO PRN (21:20)
[2019-06-22] MEDS: MELATONIN 5 MG PO SCH (21:29)
[2019-06-22] MEDS: Insulin Glargine,Human Rec. Analog 100 Units/ML 3 ML Pen SUBCUT SCH (21:30)
[2019-06-23] MEDS: Sodium Chloride 0.9% 1,000 ML IV SCH ×2 (00:44→19:50)
[2019-06-23 07:57] LABS: CHLORIDE,CL 110 mEq/L (98-106); SODIUM,NA 138 mEq/L (136-145)
[2019-06-23] MEDS: Pantoprazole 40 MG Vial IVPUSH SCH (08:08)
[2019-06-23] MEDS: Metoprolol Tartrate 50 MG Tab PO SCH ×2 (08:11→21:23)
[2019-06-23] MEDS: POTASSIUM CHLORIDE 40 MEQ PO SCH (08:12)
[2019-06-23] MEDS: cefTRIAXone 1 GM Vial IVPUSH SCH (08:14)
[2019-06-23] MEDS: CHOLESTYRAMINE PO SCH ×2 (08:14→19:47)
[2019-06-23] MEDS: [UNRECOGNIZED DRUG - OTHER] PO SCH (09:44)
[2019-06-23] MEDS: VITAMIN D3 2000 UNIT PO SCH (09:44)
[2019-06-23] MEDS: APIXABAN 2.5 MG PO SCH (09:44)
[2019-06-23] MEDS: IBRUTINIB 280 MG PO SCH (14:00)
[2019-06-23] MEDS: Ondansetron 4 MG Tab.DIS PO PRN (15:46)
[2019-06-23] MEDS: Loperamide 2 MG Cap PO PRN (15:46)
--- NOTE | 2019-06-23 16:47 | PCM.PN ---
- General Info Date of Service: 06/23/19 Admission Dx/Problem (Free Text): Abdominal Pain Diarrhea Functional Status: Reports: Pain Controlled, Tolerating Diet, Ambulating - Review of Systems General: Reports: Fever, Weakness, Fatigue, Malaise HEENT: Reports: No Symptoms Pulmonary: Denies: Shortness of Breath, Cough Cardiovascular: Reports: Edema. Denies: Chest Pain, Lightheadedness Gastrointestinal: Reports: Abdominal Pain ("abdomen is sore"), Diarrhea ( diarrhea has lessened in frequency), Nausea. Denies: Vomiting Genitourinary: Reports: No Symptoms Musculoskeletal: Reports: No Symptoms Skin: Reports: No Symptoms Neurological: Reports: Weakness - Patient Data Vitals - Most Recent: Last Vital Signs Temp 98.1 F 06/23/19 12:00 Pulse 71 06/23/19 12:00 Resp 20 06/23/19 12:00 BP 129/68 06/23/19 12:00 Pulse Ox 97 06/23/19 12:00 Weight - Most Recent: 142 lb 12.8 oz I&O - Last 24 Hours: Intake & Output 06/23/19 06/23/19 06/23/19 06:59 14:59 22:59 Intake Total 1316 Output Total 300 Balance 1016 Lab Results Last 24 Hours: Laboratory Results - last 24 hr 06/22/19 06/22/19 06/23/19 Range/Units 17:30 21:11 05:11 WBC 11.5 H (5.0-10.0) 10^3/uL RBC 3.23 L (4.00-5.50) 10^6/uL Hgb 8.9 L (12.0-16.0) g/dL Hct 28.2 L (37.0-47.0) % MCV 87.3 (82.0-94.0) fL MCH 27.6 (27.0-32.0) pg MCHC 31.6 L (33.0-38.0) g/dL RDW Coeff of Blaze 16.8 H (11.0-15.0) % Plt Count 181 (150-400) 10^3/uL Neut % (Auto) 22.0 L (35-85) % Lymph % (Auto) 72.5 H (10-55) % [place] % (Auto) 3.6 (0-16) % Eos % (Auto) 1.7 (0-5) % Baso % (Auto) 0.2 (0-3) % Neut # (Auto) 2.53 (1.80-7.00) 10^3/uL Lymph # (Auto) 8.35 H (1.00-4.80) 10^3/uL [place] # (Auto) 0.42 (0.00-0.80) 10^3/uL Eos # (Auto) 0.19 (0.00-0.45) 10^3/uL Baso # (Auto) 0.02 10^3/uL Sodium (136-145) mEq/L Potassium (3.5-5.0) mEq/L Chloride (98-106) mEq/L Carbon Dioxide (21-32) mmol/L BUN (7-18) mg/dL Creatinine (0.6-1.0) mg/dL Est Cr Clr Drug Dosing mL/min Estimated GFR (MDRD) (>=60) mL/min Glucose (75-99) mg/dL POC Glucose 140 H 166 H (75-105) mg/dl Calcium (8.4-10.1) mg/dL C-Reactive Protein (0.2-0.8) mg/dL 06/23/19 Range/Units 05:11 WBC (5.0-10.0) 10^3/uL RBC (4.00-5.50) 10^6/uL Hgb (12.0-16.0) g/dL Hct (37.0-47.0) % MCV (82.0-94.0) fL MCH (27.0-32.0) pg MCHC (33.0-38.0) g/dL RDW Coeff of Blaze (11.0-15.0) % Plt Count (150-400) 10^3/uL Neut % (Auto) (35-85) % Lymph % (Auto) (10-55) % [place] % (Auto) (0-16) % Eos % (Auto) (0-5) % Baso % (Auto) (0-3) % Neut # (Auto) (1.80-7.00) 10^3/uL Lymph # (Auto) (1.00-4.80) 10^3/uL [place] # (Auto) (0.00-0.80) 10^3/uL Eos # (Auto) (0.00-0.45) 10^3/uL Baso # (Auto) 10^3/uL Sodium 138 (136-145) mEq/L Potassium 4.0 D (3.5-5.0) mEq/L Chloride 110 H (98-106) mEq/L Carbon Dioxide 19 L (21-32) mmol/L BUN 10 (7-18) mg/dL Creatinine 1.0 (0.6-1.0) mg/dL Est Cr Clr Drug Dosing 38.75 mL/min Estimated GFR (MDRD) 53 L (>=60) mL/min Glucose 107 H (75-99) mg/dL POC Glucose (75-105) mg/dl Calcium 8.4 (8.4-10.1) mg/dL C-Reactive Protein < 0.2 L (0.2-0.8) mg/dL Sergei Results Last 24 Hours: Microbiology 06/21/19 08:30 Stool Aerobic Culture - Preliminary Stool / Feces 06/21/19 17:25 Urine Culture - Final Urine, Clean Catch Escherichia Coli Med Orders - Current: Current Medications Acetaminophen (Tylenol) 650 mg PO Q4H PRN PRN Reason: Pain Acetaminophen (Tylenol Extra Strength) 500 mg PO 2200 [facility] Last Admin: 06/22/19 21:19 Dose: 500 mg Apixaban (Eliquis) 2.5 mg PO BID@0800,2200 [facility] Artificial Tears (Liquitears 1.4% Ophth Soln) 1 - 2 ml EYEBOTH Q1H PRN PRN Reason: Dry Eyes Calcium Carbonate/Glycine (Tums) 1,000 mg PO QID PRN PRN Reason: gastric distress Ceftriaxone Sodium (Rocephin) 1 gm IVPUSH DAILY [facility] Last Admin: 06/23/19 08:14 Dose: 1 gm Cholecalciferol (Vitamin D3) 50 mcg PO DAILY [facility] Sodium Chloride (Normal Saline) 1,000 mls @ 50 mls/hr IV ASDIRECTED [facility] Last Admin: 06/23/19 00:44 Dose: 50 mls/hr Azithromycin 500 mg/ Sodium (Chloride) 250 mls @ 250 mls/hr IV Q24H [facility] Last Admin: 06/22/19 20:36 Dose: 250 mls/hr Insulin Glargine (Lantus Solostar) 10 units SUBCUT 2200 [facility] Last Admin: 06/22/19 21:30 Dose: 10 units Loperamide HCl (Imodium) 2 mg PO ASDIRECTED PRN PRN Reason: Diarrhea Last Admin: 06/23/19 15:46 Dose: 2 mg Melatonin (Melatonin) 3 mg PO 2200 [facility] Metoprolol Tartrate (Lopressor) 75 mg PO BID@0800,2200 [facility] Last Admin: 06/23/19 08:11 Dose: 75 mg Multivitamins/Minerals/Vitamin C (Tab-A-Alessandro) 1 tab PO DAILY [facility] Ptom Ibrutinib (280 Mg Tab) 280 mg PO 1300 [facility] Last Admin: 06/23/19 14:00 Dose: 280 mg Cholestyramine (Powder) 2 gm PO BID [facility] Last Admin: 06/23/19 08:14 Dose: 2 gm Ondansetron HCl (Zofran Odt) 4 mg PO Q4H PRN PRN Reason: nausea, able to take PO Last Admin: 06/23/19 15:46 Dose: 4 mg Pantoprazole Sodium (Protonix Iv) 40 mg IVPUSH DAILY [facility] Last Admin: 06/23/19 08:08 Dose: 40 mg Potassium Chloride (Klor-Con 10) 40 meq PO DAILY [facility] Discontinued Medications Acetaminophen (Tylenol Extra Strength) 500 mg PO BEDTIME [facility] Last Admin: 06/20/19 21:11 Dose: Not Given Barium Sulfate (Readi-Cat 2) 900 ml PO ONETIME ONE Stop: 06/21/19 13:43 Last Admin: 06/21/19 14:59 Dose: 900 ml Insulin Glargine (Lantus Solostar) 10 units SUBCUT BEDTIME [facility] Last Admin: 06/20/19 21:10 Dose: Not Given Iopamidol (Isovue-370 (76%)) 100 ml IVPUSH ONETIME ONE Stop: 06/21/19 13:06 Last Admin: 06/21/19 15:23 Dose: 100 ml Metoprolol Tartrate (Lopressor) 75 mg PO BID [facility] Last Admin: 06/20/19 21:10 Dose: Not Given Ptom Apixaban [ (Eliquis] 2.5 Mg Tab) 2.5 mg PO BID [facility] Last Admin: 06/20/19 21:09 Dose: Not Given Ptom Vitamin D3 (2,000 Unit Cap) 2,000 unit PO DAILY [facility] Last Admin: 06/23/19 09:44 Dose: 2,000 unit Ptom Melatonin 5 (Mg Tab) 5 mg PO BEDTIME [facility] Last Admin: 06/20/19 21:10 Dose: Not Given Ptom Multi-Day (Plus Iron Tablet) 1 tab PO DAILY [facility] Last Admin: 06/23/19 09:44 Dose: 1 tab Ptom Potassium Chloride [Klor-Con M20] 40 Meq 40 meq PO DAILY [facility] Last Admin: 06/23/19 08:12 Dose: 40 meq Ptom Apixaban [ (Eliquis] 2.5 Mg Tab) 2.5 mg PO BID@0800,2200 [facility] Last Admin: 06/23/19 09:44 Dose: 2.5 mg Ptom Melatonin 5 (Mg Tab) 5 mg PO 2200 [facility] Last Admin: 06/22/19 21:29 Dose: Not Given - Exam General: Alert, Oriented HEENT: Mucous Membr. Moist/[place] Neck: Supple Lungs: Crackles (RLL) Cardiovascular: Regular Rate, Regular Rhythm GI/Abdominal Exam: Normal Bowel Sounds, Soft, Non-Tender Extremities: Normal Inspection, Pedal Edema (1+ RLE, trace LLE) Skin: Warm, Dry Neurological: No New Focal Deficit - Problem List & Annotations (1) Abdominal pain SNOMED Code(s): 00738887 Code(s): R10.9 - UNSPECIFIED ABDOMINAL PAIN Status: Acute Priority: High Current Visit: Yes Qualifiers: Abdominal location: generalized Qualified Code(s): R10.84 - Generalized abdominal pain (2) Diarrhea SNOMED Code(s): 26796266 Code(s): R19.7 - DIARRHEA, UNSPECIFIED Status: Acute Priority: High Current Visit: Yes Qualifiers: Diarrhea type: unspecified type Qualified Code(s): R19.7 - Diarrhea, unspecified - Problem List Review Problem List Initiated/Reviewed/Updated: Yes - Assessment Assessment:: Abdominal Pain diarrhea - Plan Plan:: Patient admits to increased abdominal discomfort after having clear liquids this am. Pain is diffuse. Low grade fever this am. States last loose stool was 0300. C diff was negative. Awaiting culture. WBC is down this am at 13.2 , does have history of CLL. CRP is negative. Creatinine stable at 1.4. UA is positive. Will obtain urine culture. Start Rocephin. Obtain CT scan of abdomen and pelvis. Repeat labs in am. 06-22-2019 Patient had significant diarrhea yesterday through early am. States "seems to have settled a bit this am". No fevers. Admits to abdominal cramping. Did attempt to advance diet to toast last evening, had emesis at [address] scan results reviewed last evening, do show right subsegmental consolidation. Added Zithromax as well. Labs this am show WBC of 12.5. Potassium 3.3. Other labs done for Dr. Drake. Urine culture shows e coli, sensitive to Rocephin. Will transfer to acute inpatient. Add Questran. Continue IV antibiotics. Repeat labs in am. 06-23-2019 patient starting to feel marginally better. States abdomen is "sore". Did get nauseated again last evening. Diarrhea has lessened, up only 4 times during last 12 hour shift, more controllable at this point per patient. Was started on Questran yesterday. Abdomen is soft, nontender. Lung sounds note crackles in RLL. No cough. Oxygen sats are good. WBC improved to 11.5 today. Potassium stable at 4. CRP negative. Will continue with same meds. Ambulate. Advance diet.
[2019-06-23] MEDS: Azithromycin 500 MG in Sodium Chloride 0.9% 250 ML IV SCH (21:21)
[2019-06-23] MEDS: Acetaminophen 500 MG Tab PO SCH (21:22)
[2019-06-23] MEDS: Apixaban 5 MG Tab PO SCH (21:22)
[2019-06-23] MEDS: Melatonin 3 MG Tab PO SCH (21:22)
[2019-06-23] MEDS: Insulin Glargine,Human Rec. Analog 100 Units/ML 3 ML Pen SUBCUT SCH (21:25)
[2019-06-24] MEDS: Pantoprazole 40 MG Vial IVPUSH SCH (07:37)
[2019-06-24] MEDS: cefTRIAXone 1 GM Vial IVPUSH SCH (07:38)
[2019-06-24] MEDS: Cholecalciferol (Vitamin D3) 25 MCG Tab PO SCH (07:40)
[2019-06-24] MEDS: Apixaban 5 MG Tab PO SCH ×2 (07:40→22:03)
[2019-06-24] MEDS: Potassium Chloride 10 MEQ Tab.ER PO SCH (07:40)
[2019-06-24] MEDS: Multivitamin Tab PO SCH (07:41)
[2019-06-24] MEDS: Metoprolol Tartrate 50 MG Tab PO SCH ×2 (07:42→22:04)
[2019-06-24] MEDS: CHOLESTYRAMINE PO SCH ×2 (07:49→20:34)
[2019-06-24] MEDS: IBRUTINIB 280 MG PO SCH (13:30)
--- NOTE | 2019-06-24 16:18 | PCM.PN ---
- General Info Date of Service: 06/24/19 Admission Dx/Problem (Free Text): Abdominal Pain Diarrhea Subjective Update: Lashawn is an 79 year old female who was admitted to the hospital for abdominal pain and diarrhea. Has had CT abdomen/pelvis, as well as negative stool studies. Is currently receiving antibiotics for RLL pneumonia as well as UTI. She does report she is feeling somewhat better today, but continues to have an "upset" stomach. She reports "tenderness" in upper abdomen. She has not had emesis since yesterday. Has had 1 episode of loose stools. Has not been motivated to be up moving much. She has been afebrile. Functional Status: Reports: Pain Controlled, Tolerating Diet, Ambulating, Urinating. Denies: New Symptoms - Review of Systems General: Reports: Weakness, Fatigue, Malaise. Denies: Fever, Chills HEENT: Reports: No Symptoms Pulmonary: Reports: Shortness of Breath, Cough. Denies: Sputum, Wheezing Cardiovascular: Denies: Chest Pain, Edema, Lightheadedness Gastrointestinal: Reports: Abdominal Pain, Decreased Appetite, Diarrhea, Nausea , Vomiting. Denies: Hematochezia, Melena Genitourinary: Denies: Dysuria, Frequency, Urgency, Flank Pain Musculoskeletal: Reports: No Symptoms Skin: Reports: No Symptoms Neurological: Reports: Weakness. Denies: Confusion, Dizziness, Headache, Numbness, Tingling Psychiatric: Reports: No Symptoms - Patient Data Vitals - Most Recent: Last Vital Signs Temp 98.9 F 06/24/19 12:00 Pulse 76 06/24/19 12:00 Resp 18 06/24/19 12:00 BP 140/56 L 06/24/19 12:00 Pulse Ox 99 06/24/19 12:00 Weight - Most Recent: 142 lb 12.8 oz I&O - Last 24 Hours: Intake & Output 06/24/19 06/24/19 06/24/19 06:59 14:59 22:59 Intake Total 250 1040 Output Total 1400 300 Balance -1150 740 Lab Results Last 24 Hours: Laboratory Results - last 24 hr 06/23/19 06/23/19 06/23/19 Range/Units 11:28 17:31 21:17 WBC (5.0-10.0) 10^3/uL RBC (4.00-5.50) 10^6/uL Hgb (12.0-16.0) g/dL Hct (37.0-47.0) % MCV (82.0-94.0) fL MCH (27.0-32.0) pg MCHC (33.0-38.0) g/dL RDW Coeff of Blaze (11.0-15.0) % Plt Count (150-400) 10^3/uL Neut % (Auto) (35-85) % Lymph % (Auto) (10-55) % [place] % (Auto) (0-16) % Eos % (Auto) (0-5) % Baso % (Auto) (0-3) % Neut # (Auto) (1.80-7.00) 10^3/uL Lymph # (Auto) (1.00-4.80) 10^3/uL [place] # (Auto) (0.00-0.80) 10^3/uL Eos # (Auto) (0.00-0.45) 10^3/uL Baso # (Auto) 10^3/uL Sodium (136-145) mEq/L Potassium (3.5-5.0) mEq/L Chloride (98-106) mEq/L Carbon Dioxide (21-32) mmol/L BUN (7-18) mg/dL Creatinine (0.6-1.0) mg/dL Est Cr Clr Drug Dosing mL/min Estimated GFR (MDRD) (>=60) mL/min Glucose (75-99) mg/dL POC Glucose 131 H 117 H 144 H (75-105) mg/dl Calcium (8.4-10.1) mg/dL 06/24/19 06/24/19 06/24/19 Range/Units 07:00 07:00 07:54 WBC 11.1 H (5.0-10.0) 10^3/uL RBC 3.26 L (4.00-5.50) 10^6/uL Hgb 8.9 L (12.0-16.0) g/dL Hct 28.2 L (37.0-47.0) % MCV 86.5 (82.0-94.0) fL MCH 27.3 (27.0-32.0) pg MCHC 31.6 L (33.0-38.0) g/dL RDW Coeff of Blaze 16.7 H (11.0-15.0) % Plt Count 187 (150-400) 10^3/uL Neut % (Auto) 31.9 L (35-85) % Lymph % (Auto) 62.5 H (10-55) % [place] % (Auto) 3.8 (0-16) % Eos % (Auto) 1.6 (0-5) % Baso % (Auto) 0.2 (0-3) % Neut # (Auto) 3.56 (1.80-7.00) 10^3/uL Lymph # (Auto) 6.96 H (1.00-4.80) 10^3/uL [place] # (Auto) 0.42 (0.00-0.80) 10^3/uL Eos # (Auto) 0.18 (0.00-0.45) 10^3/uL Baso # (Auto) 0.02 10^3/uL Sodium 139 (136-145) mEq/L Potassium 3.9 (3.5-5.0) mEq/L Chloride 111 H (98-106) mEq/L Carbon Dioxide 20 L (21-32) mmol/L BUN 9 (7-18) mg/dL Creatinine 1.0 (0.6-1.0) mg/dL Est Cr Clr Drug Dosing 38.75 mL/min Estimated GFR (MDRD) 53 L (>=60) mL/min Glucose 66 L D (75-99) mg/dL POC Glucose 67 L (75-105) mg/dl Calcium 8.4 (8.4-10.1) mg/dL 06/24/19 Range/Units 12:02 WBC (5.0-10.0) 10^3/uL RBC (4.00-5.50) 10^6/uL Hgb (12.0-16.0) g/dL Hct (37.0-47.0) % MCV (82.0-94.0) fL MCH (27.0-32.0) pg MCHC (33.0-38.0) g/dL RDW Coeff of Blaze (11.0-15.0) % Plt Count (150-400) 10^3/uL Neut % (Auto) (35-85) % Lymph % (Auto) (10-55) % [place] % (Auto) (0-16) % Eos % (Auto) (0-5) % Baso % (Auto) (0-3) % Neut # (Auto) (1.80-7.00) 10^3/uL Lymph # (Auto) (1.00-4.80) 10^3/uL [place] # (Auto) (0.00-0.80) 10^3/uL Eos # (Auto) (0.00-0.45) 10^3/uL Baso # (Auto) 10^3/uL Sodium (136-145) mEq/L Potassium (3.5-5.0) mEq/L Chloride (98-106) mEq/L Carbon Dioxide (21-32) mmol/L BUN (7-18) mg/dL Creatinine (0.6-1.0) mg/dL Est Cr Clr Drug Dosing mL/min Estimated GFR (MDRD) (>=60) mL/min Glucose (75-99) mg/dL POC Glucose 117 H (75-105) mg/dl Calcium (8.4-10.1) mg/dL Sergei Results Last 24 Hours: Microbiology 06/21/19 08:30 Stool Aerobic Culture - Preliminary Stool / Feces Med Orders - Current: Current Medications Acetaminophen (Tylenol) 650 mg PO Q4H PRN PRN Reason: Pain Acetaminophen (Tylenol Extra Strength) 500 mg PO 2200 [facility] Last Admin: 06/23/19 21:22 Dose: 500 mg Apixaban (Eliquis) 2.5 mg PO BID@0800,2200 [facility] Last Admin: 06/24/19 07:40 Dose: 2.5 mg Artificial Tears (Liquitears 1.4% Ophth Soln) 1 - 2 ml EYEBOTH Q1H PRN PRN Reason: Dry Eyes Calcium Carbonate/Glycine (Tums) 1,000 mg PO QID PRN PRN Reason: gastric distress Ceftriaxone Sodium (Rocephin) 1 gm IVPUSH DAILY [facility] Last Admin: 06/24/19 07:38 Dose: 1 gm Cholecalciferol (Vitamin D3) 50 mcg PO DAILY [facility] Last Admin: 06/24/19 07:40 Dose: 50 mcg Azithromycin 500 mg/ Sodium (Chloride) 250 mls @ 250 mls/hr IV Q24H [facility] Last Admin: 06/23/19 21:21 Dose: 250 mls/hr Insulin Glargine (Lantus Solostar) 10 units SUBCUT 2200 [facility] Last Admin: 06/23/19 21:25 Dose: 10 units Loperamide HCl (Imodium) 2 mg PO ASDIRECTED PRN PRN Reason: Diarrhea Last Admin: 06/23/19 15:46 Dose: 2 mg Melatonin (Melatonin) 3 mg PO 2200 [facility] Last Admin: 06/23/19 21:22 Dose: 3 mg Metoprolol Tartrate (Lopressor) 75 mg PO BID@0800,2200 [facility] Last Admin: 06/24/19 07:42 Dose: 75 mg Multivitamins/Minerals/Vitamin C (Tab-A-Alessandro) 1 tab PO DAILY [facility] Last Admin: 06/24/19 07:41 Dose: 1 tab Ptom Ibrutinib (280 Mg Tab) 280 mg PO 1300 [facility] Last Admin: 06/24/19 13:30 Dose: 280 mg Cholestyramine (Powder) 2 gm PO BID [facility] Last Admin: 06/24/19 07:49 Dose: 2 gm Ondansetron HCl (Zofran Odt) 4 mg PO Q4H PRN PRN Reason: nausea, able to take PO Last Admin: 06/23/19 15:46 Dose: 4 mg Pantoprazole Sodium (Protonix Iv) 40 mg IVPUSH DAILY [facility] Last Admin: 06/24/19 07:37 Dose: 40 mg Potassium Chloride (Klor-Con 10) 40 meq PO DAILY [facility] Last Admin: 06/24/19 07:40 Dose: 40 meq Discontinued Medications Acetaminophen (Tylenol Extra Strength) 500 mg PO BEDTIME [facility] Last Admin: 06/20/19 21:11 Dose: Not Given Barium Sulfate (Readi-Cat 2) 900 ml PO ONETIME ONE Stop: 06/21/19 13:43 Last Admin: 06/21/19 14:59 Dose: 900 ml Sodium Chloride (Normal Saline) 1,000 mls @ 50 mls/hr IV ASDIRECTED [facility] Last Admin: 06/23/19 19:50 Dose: 50 mls/hr Insulin Glargine (Lantus Solostar) 10 units SUBCUT BEDTIME [facility] Last Admin: 06/20/19 21:10 Dose: Not Given Iopamidol (Isovue-370 (76%)) 100 ml IVPUSH ONETIME ONE Stop: 06/21/19 13:06 Last Admin: 06/21/19 15:23 Dose: 100 ml Metoprolol Tartrate (Lopressor) 75 mg PO BID [facility] Last Admin: 06/20/19 21:10 Dose: Not Given Ptom Apixaban [ (Eliquis] 2.5 Mg Tab) 2.5 mg PO BID [facility] Last Admin: 06/20/19 21:09 Dose: Not Given Ptom Vitamin D3 (2,000 Unit Cap) 2,000 unit PO DAILY [facility] Last Admin: 06/23/19 09:44 Dose: 2,000 unit Ptom Melatonin 5 (Mg Tab) 5 mg PO BEDTIME [facility] Last Admin: 06/20/19 21:10 Dose: Not Given Ptom Multi-Day (Plus Iron Tablet) 1 tab PO DAILY [facility] Last Admin: 06/23/19 09:44 Dose: 1 tab Ptom Potassium Chloride [Klor-Con M20] 40 Meq 40 meq PO DAILY [facility] Last Admin: 06/23/19 08:12 Dose: 40 meq Ptom Apixaban [ (Eliquis] 2.5 Mg Tab) 2.5 mg PO BID@0800,2200 [facility] Last Admin: 06/23/19 09:44 Dose: 2.5 mg Ptom Melatonin 5 (Mg Tab) 5 mg PO 2200 [facility] Last Admin: 06/22/19 21:29 Dose: Not Given - Exam Quality Assessment: DVT Prophylaxis General: Alert, Oriented, No Acute Distress Neck: Supple Lungs: Normal Respiratory Effort, Crackles (RLL), Rhonchi (RLL) Cardiovascular: Regular Rate, Regular Rhythm GI/Abdominal Exam: Normal Bowel Sounds, Soft, No Distention, Tender (bilatearl upper quadrants) Back Exam: Normal Inspection, Full Range of Motion. No: CVA Tenderness (L), CVA Tenderness (R) Extremities: Normal Range of Motion, Non-Tender, Normal Capillary Refill, Pedal Edema (2+) Neurological: No New Focal Deficit Psy/Mental Status: Alert, Normal Affect, Normal Mood - Problem List & Annotations (1) UTI (urinary tract infection) SNOMED Code(s): 25922396 Code(s): N39.0 - URINARY TRACT INFECTION, SITE NOT SPECIFIED Status: Acute Current Visit: Yes Qualifiers: Urinary tract infection type: acute cystitis Hematuria presence: without hematuria Qualified Code(s): N30.00 - Acute cystitis without hematuria (2) Pneumonia SNOMED Code(s): 678979364 Code(s): J18.9 - PNEUMONIA, UNSPECIFIED ORGANISM Status: Acute Current Visit: Yes Qualifiers: Pneumonia type: due to unspecified organism Laterality: right Lung location: lower lobe of lung Qualified Code(s): J18.1 - Lobar pneumonia, unspecified organism (3) Abdominal pain SNOMED Code(s): 46821919 Code(s): R10.9 - UNSPECIFIED ABDOMINAL PAIN Status: Acute Priority: High Current Visit: Yes Qualifiers: Abdominal location: generalized Qualified Code(s): R10.84 - Generalized abdominal pain (4) Diarrhea SNOMED Code(s): 02229994 Code(s): R19.7 - DIARRHEA, UNSPECIFIED Status: Acute Priority: High Current Visit: Yes Qualifiers: Diarrhea type: unspecified type Qualified Code(s): R19.7 - Diarrhea, unspecified - Problem List Review Problem List Initiated/Reviewed/Updated: Yes - Assessment Assessment:: Abdominal Pain diarrhea UTI RLL Pneumonia - Plan Plan:: Patient admits to increased abdominal discomfort after having clear liquids this am. Pain is diffuse. Low grade fever this am. States last loose stool was 0300. C diff was negative. Awaiting culture. WBC is down this am at 13.2 , does have history of CLL. CRP is negative. Creatinine stable at 1.4. UA is positive. Will obtain urine culture. Start Rocephin. Obtain CT scan of abdomen and pelvis. Repeat labs in am. 06-22-2019 Patient had significant diarrhea yesterday through early am. States "seems to have settled a bit this am". No fevers. Admits to abdominal cramping. Did attempt to advance diet to toast last evening, had emesis at [address] scan results reviewed last evening, do show right subsegmental consolidation. Added Zithromax as well. Labs this am show WBC of 12.5. Potassium 3.3. Other labs done for Dr. Drake. Urine culture shows e coli, sensitive to Rocephin. Will transfer to acute inpatient. Add Questran. Continue IV antibiotics. Repeat labs in am. 06-23-2019 patient starting to feel marginally better. States abdomen is "sore". Did get nauseated again last evening. Diarrhea has lessened, up only 4 times during last 12 hour shift, more controllable at this point per patient. Was started on Questran yesterday. Abdomen is soft, nontender. Lung sounds note crackles in RLL. No cough. Oxygen sats are good. WBC improved to 11.5 today. Potassium stable at 4. CRP negative. Will continue with same meds. Ambulate. Advance diet. 06-24-2019 Patient does admit she is feeling somewhat better today but continues to have upset stomach at times. She is having less loose stools. Has not had emesis today. Is not real motivated to get up and move and has just been wanting to sit in bed or chair majority of day. Discussed with patient that she needs to try to get up and walk as this could help her abdomen feel better. Labs all stable. WBC 11.1. Does have hx of CLL. Urine culture shows e coli with sensitivity to Rocephin. Continue with IV antibiotics for coverage of UTI and RLL pneumonia. Continue Questran. Imodium as needed. Stool culture and C diff both negative. Encourage ambulation. Repeat labs in am.
[2019-06-24] MEDS: Azithromycin 500 MG in Sodium Chloride 0.9% 250 ML IV SCH (20:35)
[2019-06-24] MEDS: Melatonin 3 MG Tab PO SCH (22:02)
[2019-06-24] MEDS: Acetaminophen 500 MG Tab PO SCH (22:03)
[2019-06-24] MEDS: Insulin Glargine,Human Rec. Analog 100 Units/ML 3 ML Pen SUBCUT SCH (22:05)
[2019-06-25] MEDS: Apixaban 5 MG Tab PO SCH ×2 (07:38→21:44)
[2019-06-25] MEDS: Multivitamin Tab PO SCH (07:38)
[2019-06-25] MEDS: Metoprolol Tartrate 50 MG Tab PO SCH ×2 (07:39→21:44)
[2019-06-25] MEDS: Potassium Chloride 10 MEQ Tab.ER PO SCH (07:40)
[2019-06-25] MEDS: CHOLESTYRAMINE PO SCH ×2 (07:41→19:52)
[2019-06-25] MEDS: Cholecalciferol (Vitamin D3) 25 MCG Tab PO SCH (07:41)
[2019-06-25] MEDS: cefTRIAXone 1 GM Vial IVPUSH SCH (07:41)
[2019-06-25] MEDS: Pantoprazole 40 MG Vial IVPUSH SCH (07:41)
[2019-06-25] MEDS ORDERED: diphenhydrAMINE 25 MG Cap PO PRN (11:50)
--- NOTE | 2019-06-25 11:51 | PCM.PN ---
- General Info Date of Service: 06/25/19 Admission Dx/Problem (Free Text): Abdominal Pain Diarrhea Subjective Update: Lashawn is an 79 year old female who was admitted to the hospital for abdominal pain and diarrhea. Was found to have UTI and RLL pneumonia. Currently getting antibiotics for this. She reports she continues to have upset stomach. Did have large emesis and loose stool this morning. Denies any significant abdominal pain but notes upper abdomen is "sore." No urinary symptoms currently. Does feel SOB, but hasn't really had a cough. Is noted to have right sided lip swelling. She reports she believes she burned her lips on soup yesterday. Swelling has worsened throughout day. She reports she also has sore mouth and throat, which started last evening. Functional Status: Reports: Pain Controlled, Tolerating Diet (1 emesis), Ambulating (short distances), Urinating, New Symptoms (lip swelling and sore mouth/throat) - Review of Systems General: Reports: Weakness, Fatigue, Malaise. Denies: Fever, Chills HEENT: Reports: Sore Throat, Other (lip swelling) Pulmonary: Reports: Shortness of Breath. Denies: Pleuritic Chest Pain, Cough, Sputum Cardiovascular: Reports: Edema. Denies: Chest Pain, Palpitations, Lightheadedness Gastrointestinal: Reports: Abdominal Pain (soreness), Decreased Appetite, Diarrhea, Nausea, Vomiting. Denies: Constipation, Hematochezia, Melena Genitourinary: Reports: No Symptoms. Denies: Dysuria, Frequency, Urgency Musculoskeletal: Reports: No Symptoms Skin: Reports: No Symptoms Neurological: Reports: Weakness. Denies: Headache, Numbness, Syncope, Tingling Psychiatric: Reports: No Symptoms - Patient Data Vitals - Most Recent: Last Vital Signs Temp 96.6 F 06/25/19 07:36 Pulse 73 06/25/19 07:39 Resp 20 06/25/19 07:36 BP 142/51 H 06/25/19 07:39 Pulse Ox 98 06/25/19 07:36 Weight - Most Recent: 142 lb 12.8 oz I&O - Last 24 Hours: Intake & Output 06/24/19 06/25/19 06/25/19 22:59 06:59 14:59 Intake Total 950 400 Output Total 800 825 Balance 150 -425 Lab Results Last 24 Hours: Laboratory Results - last 24 hr 06/24/19 06/24/19 06/24/19 Range/Units 12:02 17:31 20:32 WBC (5.0-10.0) 10^3/uL RBC (4.00-5.50) 10^6/uL Hgb (12.0-16.0) g/dL Hct (37.0-47.0) % MCV (82.0-94.0) fL MCH (27.0-32.0) pg MCHC (33.0-38.0) g/dL RDW Coeff of Blaze (11.0-15.0) % Plt Count (150-400) 10^3/uL Neut % (Auto) (35-85) % Lymph % (Auto) (10-55) % Edmunds % (Auto) (0-16) % Eos % (Auto) (0-5) % Baso % (Auto) (0-3) % Neut # (Auto) (1.80-7.00) 10^3/uL Lymph # (Auto) (1.00-4.80) 10^3/uL Edmunds # (Auto) (0.00-0.80) 10^3/uL Eos # (Auto) (0.00-0.45) 10^3/uL Baso # (Auto) 10^3/uL Sodium (136-145) mEq/L Potassium (3.5-5.0) mEq/L Chloride (98-106) mEq/L Carbon Dioxide (21-32) mmol/L BUN (7-18) mg/dL Creatinine (0.6-1.0) mg/dL Est Cr Clr Drug Dosing mL/min Estimated GFR (MDRD) (>=60) mL/min Glucose (75-99) mg/dL POC Glucose 117 H 94 114 H (75-105) mg/dl Calcium (8.4-10.1) mg/dL C-Reactive Protein (0.2-0.8) mg/dL 06/25/19 06/25/19 06/25/19 Range/Units 07:00 07:00 07:38 WBC 13.3 H (5.0-10.0) 10^3/uL RBC 3.28 L (4.00-5.50) 10^6/uL Hgb 8.9 L (12.0-16.0) g/dL Hct 28.0 L (37.0-47.0) % MCV 85.4 (82.0-94.0) fL MCH 27.1 (27.0-32.0) pg MCHC 31.8 L (33.0-38.0) g/dL RDW Coeff of Blaze 16.6 H (11.0-15.0) % Plt Count 207 (150-400) 10^3/uL Neut % (Auto) 29.1 L (35-85) % Lymph % (Auto) 66.0 H (10-55) % Edmunds % (Auto) 4.1 (0-16) % Eos % (Auto) 0.7 (0-5) % Baso % (Auto) 0.1 (0-3) % Neut # (Auto) 3.87 (1.80-7.00) 10^3/uL Lymph # (Auto) 8.81 H (1.00-4.80) 10^3/uL Edmunds # (Auto) 0.55 (0.00-0.80) 10^3/uL Eos # (Auto) 0.09 (0.00-0.45) 10^3/uL Baso # (Auto) 0.02 10^3/uL Sodium 138 (136-145) mEq/L Potassium 3.8 (3.5-5.0) mEq/L Chloride 110 H (98-106) mEq/L Carbon Dioxide 19 L (21-32) mmol/L BUN 9 (7-18) mg/dL Creatinine 1.0 (0.6-1.0) mg/dL Est Cr Clr Drug Dosing 38.75 mL/min Estimated GFR (MDRD) 53 L (>=60) mL/min Glucose 63 L (75-99) mg/dL POC Glucose 59 L (75-105) mg/dl Calcium 8.7 (8.4-10.1) mg/dL C-Reactive Protein 0.7 (0.2-0.8) mg/dL Sergei Results Last 24 Hours: Microbiology 06/21/19 08:30 Stool Aerobic Culture - Preliminary Stool / Feces Med Orders - Current: Current Medications Acetaminophen (Tylenol) 650 mg PO Q4H PRN PRN Reason: Pain Acetaminophen (Tylenol Extra Strength) 500 mg PO 2200 [facility] Last Admin: 06/24/19 22:03 Dose: 500 mg Apixaban (Eliquis) 2.5 mg PO BID@0800,2200 [facility] Last Admin: 06/25/19 07:38 Dose: 2.5 mg Artificial Tears (Liquitears 1.4% Ophth Soln) 1 - 2 ml EYEBOTH Q1H PRN PRN Reason: Dry Eyes Calcium Carbonate/Glycine (Tums) 1,000 mg PO QID PRN PRN Reason: gastric distress Ceftriaxone Sodium (Rocephin) 1 gm IVPUSH DAILY [facility] Last Admin: 06/25/19 07:41 Dose: 1 gm Cholecalciferol (Vitamin D3) 50 mcg PO DAILY [facility] Last Admin: 06/25/19 07:41 Dose: 50 mcg Heparin Sodium (Porcine) (Heparin Lock Flush 100 Units/Ml) 500 units FLUSH DAILY [facility] Azithromycin 500 mg/ Sodium (Chloride) 250 mls @ 250 mls/hr IV Q24H [facility] Last Admin: 06/24/19 20:35 Dose: 250 mls/hr Insulin Glargine (Lantus Solostar) 10 units SUBCUT 2199 [facility] Last Admin: 06/24/19 22:05 Dose: 10 units Loperamide HCl (Imodium) 2 mg PO ASDIRECTED PRN PRN Reason: Diarrhea Last Admin: 06/23/19 15:46 Dose: 2 mg Melatonin (Melatonin) 3 mg PO 2200 [facility] Last Admin: 06/24/19 22:02 Dose: 3 mg Metoprolol Tartrate (Lopressor) 75 mg PO BID@0800,2200 [facility] Last Admin: 06/25/19 07:39 Dose: 75 mg Multivitamins/Minerals/Vitamin C (Tab-A-Alessandro) 1 tab PO DAILY [facility] Last Admin: 06/25/19 07:38 Dose: 1 tab Ptom Ibrutinib (280 Mg Tab) 280 mg PO 1300 [facility] Last Admin: 06/24/19 13:30 Dose: 280 mg Cholestyramine (Powder) 2 gm PO BID [facility] Last Admin: 06/25/19 07:41 Dose: 2 gm Ondansetron HCl (Zofran Odt) 4 mg PO Q4H PRN PRN Reason: nausea, able to take PO Last Admin: 06/23/19 15:46 Dose: 4 mg Pantoprazole Sodium (Protonix Iv) 40 mg IVPUSH DAILY [facility] Last Admin: 06/25/19 07:41 Dose: 40 mg Potassium Chloride (Klor-Con 10) 40 meq PO DAILY [facility] Last Admin: 06/25/19 07:40 Dose: 40 meq Discontinued Medications Acetaminophen (Tylenol Extra Strength) 500 mg PO BEDTIME [facility] Last Admin: 06/20/19 21:11 Dose: Not Given Barium Sulfate (Readi-Cat 2) 900 ml PO ONETIME ONE Stop: 06/21/19 13:43 Last Admin: 06/21/19 14:59 Dose: 900 ml Sodium Chloride (Normal Saline) 1,000 mls @ 50 mls/hr IV ASDIRECTED [facility] Last Admin: 06/23/19 19:50 Dose: 50 mls/hr Insulin Glargine (Lantus Solostar) 10 units SUBCUT BEDTIME [facility] Last Admin: 06/20/19 21:10 Dose: Not Given Iopamidol (Isovue-370 (76%)) 100 ml IVPUSH ONETIME ONE Stop: 06/21/19 13:06 Last Admin: 06/21/19 15:23 Dose: 100 ml Metoprolol Tartrate (Lopressor) 75 mg PO BID [facility] Last Admin: 06/20/19 21:10 Dose: Not Given Ptom Apixaban [ (Eliquis] 2.5 Mg Tab) 2.5 mg PO BID [facility] Last Admin: 06/20/19 21:09 Dose: Not Given Ptom Vitamin D3 (2,000 Unit Cap) 2,000 unit PO DAILY [facility] Last Admin: 06/23/19 09:44 Dose: 2,000 unit Ptom Melatonin 5 (Mg Tab) 5 mg PO BEDTIME [facility] Last Admin: 06/20/19 21:10 Dose: Not Given Ptom Multi-Day (Plus Iron Tablet) 1 tab PO DAILY [facility] Last Admin: 06/23/19 09:44 Dose: 1 tab Ptom Potassium Chloride [Klor-Con M20] 40 Meq 40 meq PO DAILY [facility] Last Admin: 06/23/19 08:12 Dose: 40 meq Ptom Apixaban [ (Eliquis] 2.5 Mg Tab) 2.5 mg PO BID@0800,2200 [facility] Last Admin: 06/23/19 09:44 Dose: 2.5 mg Ptom Melatonin 5 (Mg Tab) 5 mg PO 2199 [facility] Last Admin: 06/22/19 21:29 Dose: Not Given - Exam General: Alert, Oriented, No Acute Distress Neck: Supple Lungs: Normal Respiratory Effort, Crackles (RLL), Rhonchi (RLL) Cardiovascular: Regular Rate, Regular Rhythm GI/Abdominal Exam: Normal Bowel Sounds, Soft, No Distention, Tender (bilateral upper quadrants) Back Exam: Normal Inspection, Full Range of Motion. No: CVA Tenderness (L), CVA Tenderness (R) Extremities: Normal Range of Motion, Non-Tender, Normal Capillary Refill, Pedal Edema Neurological: No New Focal Deficit Psy/Mental Status: Alert, Normal Affect, Normal Mood - Problem List & Annotations (1) Abdominal pain SNOMED Code(s): 86614786 Code(s): R10.9 - UNSPECIFIED ABDOMINAL PAIN Status: Acute Priority: High Current Visit: Yes Qualifiers: Abdominal location: generalized Qualified Code(s): R10.84 - Generalized abdominal pain (2) Diarrhea SNOMED Code(s): 04464539 Code(s): R19.7 - DIARRHEA, UNSPECIFIED Status: Acute Priority: High Current Visit: Yes Qualifiers: Diarrhea type: unspecified type Qualified Code(s): R19.7 - Diarrhea, unspecified (3) Pneumonia SNOMED Code(s): 986412309 Code(s): J18.9 - PNEUMONIA, UNSPECIFIED ORGANISM Status: Acute Current Visit: Yes Qualifiers: Pneumonia type: due to unspecified organism Laterality: right Lung location: lower lobe of lung Qualified Code(s): J18.1 - Lobar pneumonia, unspecified organism (4) UTI (urinary tract infection) SNOMED Code(s): 45938187 Code(s): N39.0 - URINARY TRACT INFECTION, SITE NOT SPECIFIED Status: Acute Current Visit: Yes Qualifiers: Urinary tract infection type: acute cystitis Hematuria presence: without hematuria Qualified Code(s): N30.00 - Acute cystitis without hematuria - Problem List Review Problem List Initiated/Reviewed/Updated: Yes - My Orders Last 24 Hours: My Active Orders 06/25/19 11:50 diphenhydrAMINE [Benadryl] 25 mg PO Q6H PRN 06/25/19 12:00 Nystatin [Mycostatin] 5 ml PO QID 06/26/19 07:00 BMP [BASIC METABOLIC PANEL,BMP] [CHEM] DAILY C-REACTIVE PROTEIN [CHEM] DAILY CBC WITH AUTO DIFF [HEME] DAILY - Assessment Assessment:: Abdominal Pain diarrhea UTI RLL Pneumonia - Plan Plan:: Patient admits to increased abdominal discomfort after having clear liquids this am. Pain is diffuse. Low grade fever this am. States last loose stool was 0300. C diff was negative. Awaiting culture. WBC is down this am at 13.2 , does have history of CLL. CRP is negative. Creatinine stable at 1.4. UA is positive. Will obtain urine culture. Start Rocephin. Obtain CT scan of abdomen and pelvis. Repeat labs in am. 06-22-2019 Patient had significant diarrhea yesterday through early am. States "seems to have settled a bit this am". No fevers. Admits to abdominal cramping. Did attempt to advance diet to toast last evening, had emesis at [address] scan results reviewed last evening, do show right subsegmental consolidation. Added Zithromax as well. Labs this am show WBC of 12.5. Potassium 3.3. Other labs done for Dr. Drake. Urine culture shows e coli, sensitive to Rocephin. Will transfer to acute inpatient. Add Questran. Continue IV antibiotics. Repeat labs in am. 06-23-2019 patient starting to feel marginally better. States abdomen is "sore". Did get nauseated again last evening. Diarrhea has lessened, up only 4 times during last 12 hour shift, more controllable at this point per patient. Was started on Questran yesterday. Abdomen is soft, nontender. Lung sounds note crackles in RLL. No cough. Oxygen sats are good. WBC improved to 11.5 today. Potassium stable at 4. CRP negative. Will continue with same meds. Ambulate. Advance diet. 06-25-2019 Continues to have occasional loose stool and emesis. Loose stools are decreasing. Diet as tolerated. Does have noted lip swelling and erythema and tenderness to tongue. Will start Benadryl as needed. She reports she did burn her tongue on soup yesterday, so ? if perhaps swelling is caused from this. Appears to have thrush. Will start Nystatin swish and swallow QID. Labs all stable. WBC 13. Does have history of CLL. Continue all meds. Continue IV antibiotics for UTI and RLL Pneumonia. Repeat labs in am and continue to monitor symptoms. Encourage patient to ambulate.
[2019-06-25] MEDS: Nystatin Susp 100,000 Unit/ML 5 ML UD Cup PO SCH ×3 (12:22→19:52)
[2019-06-25] MEDS: IBRUTINIB 280 MG PO SCH (13:33)
[2019-06-25] MEDS ORDERED: methylPREDNISolone Sodium Succinate 125 MG/2 ML SDV IVPUSH ONE (19:09)
[2019-06-25] MEDS: Ondansetron 4 MG Tab.DIS PO PRN (19:52)
[2019-06-25] MEDS: Azithromycin 500 MG in Sodium Chloride 0.9% 250 ML IV SCH (21:43)
[2019-06-25] MEDS: Acetaminophen 500 MG Tab PO SCH (21:43)
[2019-06-25] MEDS: Melatonin 3 MG Tab PO SCH (21:44)
[2019-06-25] MEDS: Insulin Glargine,Human Rec. Analog 100 Units/ML 3 ML Pen SUBCUT SCH (21:47)
[2019-06-26] MEDS: CHOLESTYRAMINE PO SCH ×2 (07:51→19:38)
[2019-06-26] MEDS: Apixaban 5 MG Tab PO SCH (07:51)
[2019-06-26] MEDS: Potassium Chloride 10 MEQ Tab.ER PO SCH (07:52)
[2019-06-26] MEDS: Multivitamin Tab PO SCH (07:52)
[2019-06-26] MEDS: Cholecalciferol (Vitamin D3) 25 MCG Tab PO SCH (07:54)
[2019-06-26] MEDS: Pantoprazole 40 MG Vial IVPUSH SCH (07:55)
[2019-06-26] MEDS: cefTRIAXone 1 GM Vial IVPUSH SCH (07:55)
[2019-06-26] MEDS: Nystatin Susp 100,000 Unit/ML 5 ML UD Cup PO SCH ×4 (07:55→19:38)
[2019-06-26] MEDS: Metoprolol Tartrate 50 MG Tab PO SCH ×2 (07:58→21:24)
[2019-06-26] MEDS: IBRUTINIB 280 MG PO SCH (12:06)
[2019-06-26] MEDS: Ondansetron 4 MG Tab.DIS PO PRN ×2 (15:47→21:28)
[2019-06-26] MEDS: Azithromycin 500 MG in Sodium Chloride 0.9% 250 ML IV SCH (20:45)
[2019-06-26] MEDS: Acetaminophen 500 MG Tab PO SCH (21:23)
[2019-06-26] MEDS: Melatonin 3 MG Tab PO SCH (21:23)
[2019-06-26] MEDS: Insulin Glargine,Human Rec. Analog 100 Units/ML 3 ML Pen SUBCUT SCH (21:26)
--- NOTE | 2019-06-26 22:41 | PCM.PN ---
- General Info Date of Service: 06/26/19 Admission Dx/Problem (Free Text): Abdominal Pain Diarrhea Functional Status: Reports: Pain Controlled, Tolerating Diet, Ambulating - Review of Systems General: Reports: Weakness, Fatigue, Malaise. Denies: Fever HEENT: Reports: No Symptoms Pulmonary: Denies: Shortness of Breath, Cough Cardiovascular: Reports: Edema. Denies: Chest Pain, Lightheadedness Gastrointestinal: Reports: Abdominal Pain, Diarrhea, Nausea, Vomiting. Denies: Hematochezia, Melena Genitourinary: Reports: No Symptoms Musculoskeletal: Reports: No Symptoms Skin: Reports: No Symptoms Neurological: Reports: Weakness - Patient Data Vitals - Most Recent: Last Vital Signs Temp 96.7 F 06/26/19 08:00 Pulse 76 06/26/19 21:24 Resp 20 06/26/19 08:00 BP 148/61 H 06/26/19 21:24 Pulse Ox 99 06/26/19 08:00 Weight - Most Recent: 142 lb 12.8 oz I&O - Last 24 Hours: Intake & Output 06/26/19 06/26/19 06/26/19 06:59 14:59 22:59 Intake Total 300 526 900 Output Total 800 400 100 Balance -500 126 800 Lab Results Last 24 Hours: Laboratory Results - last 24 hr 06/26/19 06/26/19 06/26/19 Range/Units 07:00 07:00 07:47 WBC 10.3 H (5.0-10.0) 10^3/uL RBC 3.24 L (4.00-5.50) 10^6/uL Hgb 8.9 L (12.0-16.0) g/dL Hct 27.5 L (37.0-47.0) % MCV 84.9 (82.0-94.0) fL MCH 27.5 (27.0-32.0) pg MCHC 32.4 L (33.0-38.0) g/dL RDW Coeff of Blaze 16.7 H (11.0-15.0) % Plt Count 187 (150-400) 10^3/uL Neut % (Auto) 33.4 L (35-85) % Lymph % (Auto) 65.6 H (10-55) % Cochran % (Auto) 0.8 (0-16) % Eos % (Auto) 0 (0-5) % Baso % (Auto) 0.2 (0-3) % Neut # (Auto) 3.43 (1.80-7.00) 10^3/uL Lymph # (Auto) 6.73 H (1.00-4.80) 10^3/uL Cochran # (Auto) 0.08 (0.00-0.80) 10^3/uL Eos # (Auto) 0.00 (0.00-0.45) 10^3/uL Baso # (Auto) 0.02 10^3/uL Sodium 136 (136-145) mEq/L Potassium 4.2 (3.5-5.0) mEq/L Chloride 107 H (98-106) mEq/L Carbon Dioxide 20 L (21-32) mmol/L BUN 11 (7-18) mg/dL Creatinine 1.1 H (0.6-1.0) mg/dL Est Cr Clr Drug Dosing 35.22 mL/min Estimated GFR (MDRD) 48 L (>=60) mL/min Glucose 232 H D (75-99) mg/dL POC Glucose 235 H (75-105) mg/dl Calcium 8.6 (8.4-10.1) mg/dL C-Reactive Protein 1.5 H (0.2-0.8) mg/dL 06/26/19 06/26/19 06/26/19 Range/Units 11:25 17:19 21:21 WBC (5.0-10.0) 10^3/uL RBC (4.00-5.50) 10^6/uL Hgb (12.0-16.0) g/dL Hct (37.0-47.0) % MCV (82.0-94.0) fL MCH (27.0-32.0) pg MCHC (33.0-38.0) g/dL RDW Coeff of Blaze (11.0-15.0) % Plt Count (150-400) 10^3/uL Neut % (Auto) (35-85) % Lymph % (Auto) (10-55) % Cochran % (Auto) (0-16) % Eos % (Auto) (0-5) % Baso % (Auto) (0-3) % Neut # (Auto) (1.80-7.00) 10^3/uL Lymph # (Auto) (1.00-4.80) 10^3/uL Cochran # (Auto) (0.00-0.80) 10^3/uL Eos # (Auto) (0.00-0.45) 10^3/uL Baso # (Auto) 10^3/uL Sodium (136-145) mEq/L Potassium (3.5-5.0) mEq/L Chloride (98-106) mEq/L Carbon Dioxide (21-32) mmol/L BUN (7-18) mg/dL Creatinine (0.6-1.0) mg/dL Est Cr Clr Drug Dosing mL/min Estimated GFR (MDRD) (>=60) mL/min Glucose (75-99) mg/dL POC Glucose 258 H 246 H 200 H (75-105) mg/dl Calcium (8.4-10.1) mg/dL C-Reactive Protein (0.2-0.8) mg/dL Sergei Results Last 24 Hours: Microbiology 06/21/19 08:30 Stool Aerobic Culture - Final Stool / Feces Med Orders - Current: Current Medications Acetaminophen (Tylenol) 650 mg PO Q4H PRN PRN Reason: Pain Acetaminophen (Tylenol Extra Strength) 500 mg PO 2200 [facility] Last Admin: 06/26/19 21:23 Dose: 500 mg Apixaban (Eliquis) 2.5 mg PO BID@0800,2200 [facility] Last Admin: 06/26/19 07:51 Dose: 2.5 mg Artificial Tears (Liquitears 1.4% Ophth Soln) 1 - 2 ml EYEBOTH Q1H PRN PRN Reason: Dry Eyes Ceftriaxone Sodium (Rocephin) 1 gm IVPUSH DAILY [facility] Last Admin: 06/26/19 07:55 Dose: 1 gm Diphenhydramine HCl (Benadryl) 25 mg PO Q6H PRN PRN Reason: Other Last Admin: 06/25/19 12:22 Dose: 25 mg Heparin Sodium (Porcine) (Heparin Lock Flush 100 Units/Ml) 500 units FLUSH DAILY [facility] Last Admin: 06/26/19 07:53 Dose: 500 units Azithromycin 500 mg/ Sodium (Chloride) 250 mls @ 250 mls/hr IV Q24H [facility] Last Admin: 06/26/19 20:45 Dose: 250 mls/hr Insulin Glargine (Lantus Solostar) 10 units SUBCUT 2200 [facility] Last Admin: 06/26/19 21:26 Dose: Not Given Loperamide HCl (Imodium) 2 mg PO ASDIRECTED PRN PRN Reason: Diarrhea Last Admin: 06/23/19 15:46 Dose: 2 mg Melatonin (Melatonin) 3 mg PO 2200 [facility] Last Admin: 06/26/19 21:23 Dose: 3 mg Metoprolol Tartrate (Lopressor) 75 mg PO BID@0800,2200 [facility] Last Admin: 06/26/19 21:24 Dose: 75 mg Multivitamins/Minerals/Vitamin C (Tab-A-Alessandro) 1 tab PO DAILY [facility] Last Admin: 06/26/19 07:52 Dose: 1 tab Ptom Ibrutinib (280 Mg Tab) 280 mg PO 1300 [facility] Last Admin: 06/26/19 12:06 Dose: 280 mg Cholestyramine (Powder) 2 gm PO BID [facility] Last Admin: 06/26/19 19:38 Dose: 2 gm Nystatin (Mycostatin) 5 ml PO QID [facility] Last Admin: 06/26/19 19:38 Dose: 5 ml Ondansetron HCl (Zofran Odt) 4 mg PO Q4H PRN PRN Reason: nausea, able to take PO Last Admin: 06/26/19 21:28 Dose: 4 mg Pantoprazole Sodium (Protonix Iv) 40 mg IVPUSH DAILY [facility] Last Admin: 06/26/19 07:55 Dose: 40 mg Potassium Chloride (Klor-Con 10) 40 meq PO DAILY [facility] Last Admin: 06/26/19 07:52 Dose: 40 meq Discontinued Medications Acetaminophen (Tylenol Extra Strength) 500 mg PO BEDTIME [facility] Last Admin: 06/20/19 21:11 Dose: Not Given Barium Sulfate (Readi-Cat 2) 900 ml PO ONETIME ONE Stop: 06/21/19 13:43 Last Admin: 06/21/19 14:59 Dose: 900 ml Calcium Carbonate/Glycine (Tums) 1,000 mg PO QID PRN PRN Reason: gastric distress Cholecalciferol (Vitamin D3) 50 mcg PO DAILY [facility] Last Admin: 06/26/19 07:54 Dose: 50 mcg Sodium Chloride (Normal Saline) 1,000 mls @ 50 mls/hr IV ASDIRECTED [facility] Last Admin: 06/23/19 19:50 Dose: 50 mls/hr Insulin Glargine (Lantus Solostar) 10 units SUBCUT BEDTIME [facility] Last Admin: 06/20/19 21:10 Dose: Not Given Iopamidol (Isovue-370 (76%)) 100 ml IVPUSH ONETIME ONE Stop: 06/21/19 13:06 Last Admin: 06/21/19 15:23 Dose: 100 ml Methylprednisolone Sodium Succinate (Solu-Medrol) 62.5 mg IVPUSH STAT ONE Stop: 06/25/19 19:10 Last Admin: 06/25/19 19:52 Dose: 62.5 mg Metoprolol Tartrate (Lopressor) 75 mg PO BID [facility] Last Admin: 06/20/19 21:10 Dose: Not Given Ptom Apixaban [ (Eliquis] 2.5 Mg Tab) 2.5 mg PO BID [facility] Last Admin: 06/20/19 21:09 Dose: Not Given Ptom Vitamin D3 (2,000 Unit Cap) 2,000 unit PO DAILY [facility] Last Admin: 06/23/19 09:44 Dose: 2,000 unit Ptom Melatonin 5 (Mg Tab) 5 mg PO BEDTIME [facility] Last Admin: 06/20/19 21:10 Dose: Not Given Ptom Multi-Day (Plus Iron Tablet) 1 tab PO DAILY [facility] Last Admin: 06/23/19 09:44 Dose: 1 tab Ptom Potassium Chloride [Klor-Con M20] 40 Meq 40 meq PO DAILY [facility] Last Admin: 06/23/19 08:12 Dose: 40 meq Ptom Apixaban [ (Eliquis] 2.5 Mg Tab) 2.5 mg PO BID@0800,2200 [facility] Last Admin: 06/23/19 09:44 Dose: 2.5 mg Ptom Melatonin 5 (Mg Tab) 5 mg PO 2200 [facility] Last Admin: 06/22/19 21:29 Dose: Not Given - Exam General: Alert, Oriented HEENT: Mucous Membr. Moist/Nunda Neck: Supple Lungs: Clear to Auscultation, Crackles (zrLL) Cardiovascular: Regular Rate, Regular Rhythm GI/Abdominal Exam: Normal Bowel Sounds, Soft, Tender (mildly tender throughout) Extremities: Normal Inspection, Pedal Edema (1+ in right foot) Skin: Warm, Dry Neurological: No New Focal Deficit - Problem List & Annotations (1) Abdominal pain SNOMED Code(s): 85154317 Code(s): R10.9 - UNSPECIFIED ABDOMINAL PAIN Status: Acute Priority: High Current Visit: Yes Qualifiers: Abdominal location: generalized Qualified Code(s): R10.84 - Generalized abdominal pain (2) Diarrhea SNOMED Code(s): 56893411 Code(s): R19.7 - DIARRHEA, UNSPECIFIED Status: Acute Priority: High Current Visit: Yes Qualifiers: Diarrhea type: unspecified type Qualified Code(s): R19.7 - Diarrhea, unspecified - Problem List Review Problem List Initiated/Reviewed/Updated: Yes - Assessment Assessment:: Abdominal Pain diarrhea UTI RLL Pneumonia - Plan Plan:: Patient admits to increased abdominal discomfort after having clear liquids this am. Pain is diffuse. Low grade fever this am. States last loose stool was 0300. C diff was negative. Awaiting culture. WBC is down this am at 13.2 , does have history of CLL. CRP is negative. Creatinine stable at 1.4. UA is positive. Will obtain urine culture. Start Rocephin. Obtain CT scan of abdomen and pelvis. Repeat labs in am. 06-22-2019 Patient had significant diarrhea yesterday through early am. States "seems to have settled a bit this am". No fevers. Admits to abdominal cramping. Did attempt to advance diet to toast last evening, had emesis at [address] scan results reviewed last evening, do show right subsegmental consolidation. Added Zithromax as well. Labs this am show WBC of 12.5. Potassium 3.3. Other labs done for Dr. Drake. Urine culture shows e coli, sensitive to Rocephin. Will transfer to acute inpatient. Add Questran. Continue IV antibiotics. Repeat labs in am. 06-23-2019 patient starting to feel marginally better. States abdomen is "sore". Did get nauseated again last evening. Diarrhea has lessened, up only 4 times during last 12 hour shift, more controllable at this point per patient. Was started on Questran yesterday. Abdomen is soft, nontender. Lung sounds note crackles in RLL. No cough. Oxygen sats are good. WBC improved to 11.5 today. Potassium stable at 4. CRP negative. Will continue with same meds. Ambulate. Advance diet. 06-25-2019 Continues to have occasional loose stool and emesis. Loose stools are decreasing. Diet as tolerated. Does have noted lip swelling and erythema and tenderness to tongue. Will start Benadryl as needed. She reports she did burn her tongue on soup yesterday, so ? if perhaps swelling is caused from this. Appears to have thrush. Will start Nystatin swish and swallow QID. Labs all stable. WBC 13. Does have history of CLL. Continue all meds. Continue IV antibiotics for UTI and RLL Pneumonia. Repeat labs in am and continue to monitor symptoms. Encourage patient to ambulate. 06-26-2019 Patient continues to complain of abdominal discomfort, "feels sore". Does get more cramping pain prior to diarrhea and vomiting episodes. Has had an emesis every evening. Has had lip swelling, was given Solu Medrol last night. She states that her throat swelling and tongue irritation has improved after that. Is still using Nystatin swish and swallow. Labs are stable, WBC 10.3. Hemoglobin 8.9. CRP 1.5 Will continue current meds. Due to ongoing nausea and vomiting, will proceed with EGD with Dr. Wang in am.
[2019-06-27] MEDS: cefTRIAXone 1 GM Vial IVPUSH SCH (07:35)
[2019-06-27] MEDS: Pantoprazole 40 MG Vial IVPUSH SCH (07:36)
[2019-06-27] MEDS ORDERED: Lactated Ringers 1,000 ML IV SCH (10:30)
[2019-06-27 12:40] VITALS: BP 123/52
[2019-06-27] MEDS: Potassium Chloride 10 MEQ Tab.ER PO SCH (13:49)
[2019-06-27] MEDS: Multivitamin Tab PO SCH (13:49)
[2019-06-27] MEDS: Metoprolol Tartrate 50 MG Tab PO SCH (13:50)
[2019-06-27] MEDS: Nystatin Susp 100,000 Unit/ML 5 ML UD Cup PO SCH ×2 (13:50)
[2019-06-27] MEDS: CHOLESTYRAMINE PO SCH (13:50)
--- NOTE | 2019-06-27 14:48 | OR ---
DATE OF OPERATION: 06/27/2019 PREOPERATIVE DIAGNOSIS: ONGOING DYSPEPSIA WITH VOMITING. POSTOPERATIVE DIAGNOSIS: 1. PAULINE ESOPHAGITIS. 2. MINIMAL GASTRITIS. 3. SMALL ADENOMATOUS FUNDAL POLYP. SURGEON: Óscar Wang MD PROCEDURE: DIAGNOSTIC EGD WITH BIOPSIES X3, ANA PAULA. ANESTHESIA: Conscious sedation with 25 mg of demerol and 2 mg of versed with continuous O2 saturation monitoring and nurse assist. FINDINGS: 1. Full-length EGD. 2. Pauline esophagitis. 3. Small hiatal hernia with GERD. 4. Minimal gastritis. 5. Adenomatous polyp of fundus. RECOMMENDATIONS: Ongoing medical care. INDICATIONS: The patient is in the hospital for abdominal pain and diarrhea. She has been having persistent dyspepsia and vomiting. We elected to proceed with diagnostic EGD. DESCRIPTION OF PROCEDURE: The patient was prepped and draped, placed in left lateral decubitus position with the head of the bed elevated. A lubricated Olympus gastroscope was inserted over a bit, advanced to cricopharyngeus area, and easily intubated into the esophagus with patient swallow. The scope was advanced down the esophagus, to the Z-line, which was around 37 cm. 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 The Z-line was crisp and sharp. There may be a small hernia present, but minimal. Spontaneous reflux was not seen. The scope was advanced into the stomach through the pylorus and into the second portion of the duodenum. This and the duodenal bulb were benign. The scope was brought back into the stomach. The antrum was benign, upon retroflexion, the upper fundus and cardia were unremarkable. In the mid portion of the fundus, the patient did have a small little area of gastritis along with a small inflammatory polyp, adenomatous in nature. Both were biopsied. A CLOtest was obtained. The air was then suctioned. Scope removed without complication. The patient was stable back in the recovery room. MIREYA/KE /[id number]
[2019-06-27] MEDS: IBRUTINIB 280 MG PO SCH (15:10)
--- NOTE | 2019-06-27 21:49 | PCM.DCSUM1 ---
Discharge Summary - Hospital Course Free Text/Narrative:: Patient presented to clinic to see Dr. Wang due to weakness, nausea and diarrhea. Had started to feel more weak 3 days prior. Developed diarrhea yesterday. Had not been eating out, not leaving the home. No exposure to anyone ill. Due to weakness, did not feel could manage self at home. Admitted for further work up. WBC on admit 19.8, hemoglobin 10.4. Creatinine 1.4. Sodium 132. Alk phos elevated. Patient does have history of CLL. Diagnosis: Stroke: No Modified [place] Scale: No Symptoms at All Modified Miranda Scale Score: 0 - Discharge Data Discharge Date: 06/27/19 Discharge Disposition: DC/Tfer W/I Hosp To Swing 61 Condition: Fair - Discharge Diagnosis/Problem(s) (1) Abdominal pain SNOMED Code(s): 43775199 ICD Code: R10.9 - UNSPECIFIED ABDOMINAL PAIN Status: Acute Priority: High Qualifiers: Abdominal location: generalized Qualified Code(s): R10.84 - Generalized abdominal pain (2) Diarrhea SNOMED Code(s): 34466629 ICD Code: R19.7 - DIARRHEA, UNSPECIFIED Status: Acute Priority: High Qualifiers: Diarrhea type: unspecified type Qualified Code(s): R19.7 - Diarrhea, unspecified (3) Esophageal yeast infection SNOMED Code(s): 16246282 ICD Code: B37.81 - CANDIDAL ESOPHAGITIS Status: Acute Priority: High (4) Palliative care patient SNOMED Code(s): 622905218 ICD Code: Z51.5 - ENCOUNTER FOR PALLIATIVE CARE Status: Acute Priority: High - Patient Summary/Data Complications: none Consults: Consultations 06/27/19 14:09 PT Evaluation and Treatment [CONS] Routine Hospital Course: Patient has continued to have mild abdominal discomfort. Persistent diarrhea. Have tried Questran without much change. She does continue to have intermittent nausea, vomits at times, especially in the evenings. HAs tolerated full liquids and toast, has been hesitant to advance her diet. CT scan of abdomen was done, did have ileus on admit but xrays have shown improvement since that time. Chest xray did show a subsegmental consolidation, Rocephin and Zithromax given. UA was positive, culture positive for e coli, covered by Rocephin. Is ambulating with walker and nursing staff. Had EGD this am, did show esophageal yeast infection, no other acute abnormalities. Will continue with Nystatin swish and swallow. Transfer to swing bed for ongoing IV antibiotics and physical therapy. - Patient Instructions Diet: Mechanical Soft Activity: As Tolerated - Discharge Plan *PRESCRIPTION DRUG MONITORING PROGRAM REVIEWED*: No *COPY OF PRESCRIPTION DRUG MONITORING REPORT IN PATIENT ASHKAN: No Home Medications: Home Meds Acetaminophen [Tylenol] 650 mg PO Q4H PRN 08/02/14 [History] Cholecalciferol (Vitamin D3) [Vitamin D3] 2,000 unit PO DAILY 12/11/14 [History] Metoprolol Tartrate [Lopressor] 75 mg PO BID 12/27/15 [History] Insulin Detemir [Levemir] 10 unit SUBCUT BEDTIME 01/20/16 [History] Acetaminophen [Tylenol Extra Strength] 500 mg PO BEDTIME 02/22/19 [History] Apixaban [Eliquis] 2.5 mg PO BID 02/22/19 [History] Calcium Carbonate [Tums] 1,000 mg PO QID PRN 02/22/19 [History] Dextran 70/Hypromellose [Artificial Tears] 1 - 2 drop EYEBOTH Q1H PRN 02/22/19 [ History] Furosemide 40 mg PO BID 02/22/19 [History] Insulin Lispro [HumaLOG] 4 units SUBCUT ACBREAKFAST 02/22/19 [History] Melatonin 5 mg PO BEDTIME 02/22/19 [History] Multivitamin/Iron/Folic Acid [Multi-Day Plus Iron Tablet] 1 tab PO DAILY [History] Omeprazole 20 mg PO DAILY 02/22/19 [History] Potassium Chloride [Klor-Con M20] 40 meq PO DAILY 02/22/19 [History] Fexofenadine HCl 180 mg PO 06/20/19 [History] Ibrutinib 280 mg PO 1300 06/20/19 [History] Insulin Lispro [Humalog] 6 units SUBCUT ACLUNCH 06/20/19 [History] Insulin Lispro [Humalog] 8 units SUBCUT ACDINNER 06/20/19 [History] - Discharge Summary/Plan Comment DC Time >30 min.: No Discharge Summary/Plan Comment: Transfer to swing bed for physical therapy. Iv antibiotics. - General Info Date of Service: 06/27/19 Admission Dx/Problem (Free Text: Abdominal Pain Diarrhea Functional Status: Reports: Pain Controlled, Ambulating. Denies: Tolerating Diet - Review of Systems General: Reports: Weakness, Fatigue, Malaise. Denies: Fever HEENT: Reports: No Symptoms Pulmonary: Denies: Shortness of Breath, Cough Cardiovascular: Reports: Edema. Denies: Chest Pain, Lightheadedness Gastrointestinal: Reports: Abdominal Pain, Diarrhea, Nausea, Vomiting Genitourinary: Reports: No Symptoms Musculoskeletal: Reports: No Symptoms Skin: Reports: No Symptoms Neurological: Reports: Weakness - Patient Data Vitals - Most Recent: Last Vital Signs Temp 97.2 F 06/27/19 12:39 Pulse 54 L 06/27/19 13:50 Resp 18 06/27/19 12:39 BP 123/52 L 06/27/19 12:39 Pulse Ox 99 06/27/19 12:39 Weight - Most Recent: 142 lb 12.8 oz I&O - Last 24 hours: Intake & Output 06/27/19 06/27/19 06/27/19 06:59 14:59 22:59 Intake Total 200 Output Total 900 850 Balance -700 -850 Lab Results - Last 24 hrs: Laboratory Results - last 24 hr 06/27/19 06/27/19 06/27/19 Range/Units 07:28 10:52 17:20 POC Glucose 121 H 122 H 126 H (75-105) mg/dl Med Orders - Current: Current Medications Discontinued Medications Acetaminophen (Tylenol) 650 mg PO Q4H PRN PRN Reason: Pain Acetaminophen (Tylenol Extra Strength) 500 mg PO BEDTIME [facility] Last Admin: 06/20/19 21:11 Dose: Not Given Acetaminophen (Tylenol Extra Strength) 500 mg PO 2200 [facility] Last Admin: 06/26/19 21:23 Dose: 500 mg Apixaban (Eliquis) 2.5 mg PO BID@0800,2200 [facility] Last Admin: 06/26/19 07:51 Dose: 2.5 mg Artificial Tears (Liquitears 1.4% Ophth Soln) 1 - 2 ml EYEBOTH Q1H PRN PRN Reason: Dry Eyes Barium Sulfate (Readi-Cat 2) 900 ml PO ONETIME ONE Stop: 06/21/19 13:43 Last Admin: 06/21/19 14:59 Dose: 900 ml Calcium Carbonate/Glycine (Tums) 1,000 mg PO QID PRN PRN Reason: gastric distress Ceftriaxone Sodium (Rocephin) 1 gm IVPUSH DAILY [facility] Last Admin: 06/27/19 07:35 Dose: 1 gm Cholecalciferol (Vitamin D3) 50 mcg PO DAILY [facility] Last Admin: 06/26/19 07:54 Dose: 50 mcg Diphenhydramine HCl (Benadryl) 25 mg PO Q6H PRN PRN Reason: Other Last Admin: 06/25/19 12:22 Dose: 25 mg Heparin Sodium (Porcine) (Heparin Lock Flush 100 Units/Ml) 500 units FLUSH DAILY [facility] Last Admin: 06/27/19 07:38 Dose: 500 units Sodium Chloride (Normal Saline) 1,000 mls @ 50 mls/hr IV ASDIRECTED [facility] Last Admin: 06/23/19 19:50 Dose: 50 mls/hr Azithromycin 500 mg/ Sodium (Chloride) 250 mls @ 250 mls/hr IV Q24H [facility] Last Admin: 06/26/19 20:45 Dose: 250 mls/hr Lactated Ringer's (Ringers, Lactated) 1,000 mls @ 30 mls/hr IV ASDIRECTED [facility] Stop: 06/28/19 10:29 Last Admin: 06/27/19 10:42 Dose: 30 mls/hr Insulin Glargine (Lantus Solostar) 10 units SUBCUT BEDTIME [facility] Last Admin: 06/20/19 21:10 Dose: Not Given Insulin Glargine (Lantus Solostar) 10 units SUBCUT 2200 [facility] Last Admin: 06/26/19 21:26 Dose: Not Given Iopamidol (Isovue-370 (76%)) 100 ml IVPUSH ONETIME ONE Stop: 06/21/19 13:06 Last Admin: 06/21/19 15:23 Dose: 100 ml Loperamide HCl (Imodium) 2 mg PO ASDIRECTED PRN PRN Reason: Diarrhea Last Admin: 06/23/19 15:46 Dose: 2 mg Melatonin (Melatonin) 3 mg PO 2200 [facility] Last Admin: 06/26/19 21:23 Dose: 3 mg Methylprednisolone Sodium Succinate (Solu-Medrol) 62.5 mg IVPUSH STAT ONE Stop: 06/25/19 19:10 Last Admin: 06/25/19 19:52 Dose: 62.5 mg Metoprolol Tartrate (Lopressor) 75 mg PO BID [facility] Last Admin: 06/20/19 21:10 Dose: Not Given Metoprolol Tartrate (Lopressor) 75 mg PO BID@0800,2200 [facility] Last Admin: 06/27/19 13:50 Dose: Not Given Multivitamins/Minerals/Vitamin C (Tab-A-Alessandro) 1 tab PO DAILY [facility] Last Admin: 06/27/19 13:49 Dose: 1 tab Ptom Apixaban [ (Eliquis] 2.5 Mg Tab) 2.5 mg PO BID [facility] Last Admin: 06/20/19 21:09 Dose: Not Given Ptom Vitamin D3 (2,000 Unit Cap) 2,000 unit PO DAILY [facility] Last Admin: 06/23/19 09:44 Dose: 2,000 unit Ptom Ibrutinib (280 Mg Tab) 280 mg PO 1300 [facility] Last Admin: 06/27/19 15:10 Dose: 280 mg Ptom Melatonin 5 (Mg Tab) 5 mg PO BEDTIME [facility] Last Admin: 06/20/19 21:10 Dose: Not Given Ptom Multi-Day (Plus Iron Tablet) 1 tab PO DAILY [facility] Last Admin: 06/23/19 09:44 Dose: 1 tab Ptom Potassium Chloride [Klor-Con M20] 40 Meq 40 meq PO DAILY [facility] Last Admin: 06/23/19 08:12 Dose: 40 meq Ptom Apixaban [ (Eliquis] 2.5 Mg Tab) 2.5 mg PO BID@0800,2200 [facility] Last Admin: 06/23/19 09:44 Dose: 2.5 mg Ptom Melatonin 5 (Mg Tab) 5 mg PO 2200 [facility] Last Admin: 06/22/19 21:29 Dose: Not Given Cholestyramine (Powder) 2 gm PO BID [facility] Last Admin: 06/27/19 13:50 Dose: 2 gm Nystatin (Mycostatin) 5 ml PO QID [facility] Last Admin: 06/27/19 13:50 Dose: 5 ml Ondansetron HCl (Zofran Odt) 4 mg PO Q4H PRN PRN Reason: nausea, able to take PO Last Admin: 06/26/19 21:28 Dose: 4 mg Pantoprazole Sodium (Protonix Iv) 40 mg IVPUSH DAILY [facility] Last Admin: 06/27/19 07:36 Dose: 40 mg Potassium Chloride (Klor-Con 10) 40 meq PO DAILY [facility] Last Admin: 06/27/19 13:49 Dose: 40 meq - Exam General: Reports: Alert, Oriented HEENT: Reports: Mucous Membr. Moist/[place] Neck: Reports: Supple Lungs: Reports: Normal Respiratory Effort, Crackles (RLL) Cardiovascular: Reports: Regular Rate, Regular Rhythm GI/Abdominal Exam: Normal Bowel Sounds, Soft, Non-Tender Extremities: Normal Inspection, Pedal Edema (1+ edema in RLE, trace in LLE) Skin: Reports: Warm, Dry Neurological: Reports: No New Focal Deficit
== END 2019-06-27 16:00 | disposition swing bed (61) | DRG 368 ==
LOC: CC.MS 08:48 → UNDOADMOB 14:13 → CC.MS 15:40 → OBSVTOIN 06-22 08:48
PROVIDERS: ADMIT Family Medicine; ATTEND Family Medicine
PROC: 0DB68ZX Excision of Stomach, Via Natural or Artificial Opening Endoscopic, Diagnostic (ICD-10-PCS; principal; 2019-06-27)
DX: B37.81 Candidal esophagitis (principal); R10.9 Unspecified abdominal pain; J18.1 Lobar pneumonia, unspecified organism; I11.0 Hypertensive heart disease with heart failure; N30.00 Acute cystitis without hematuria; C91.90 Lymphoid leukemia, unspecified not having achieved remission; K29.50 Unspecified chronic gastritis without bleeding; K21.9 Gastro-esophageal reflux disease without esophagitis; Z51.5 Encounter for palliative care; B96.20 Unspecified Escherichia coli [E. coli] as the cause of diseases classified elsewhere; D13.1 Benign neoplasm of stomach; K21.0 Gastro-esophageal reflux disease with esophagitis; I48.91 Unspecified atrial fibrillation; Z88.8 Allergy status to other drugs, medicaments and biological substances; Z79.01 Long term (current) use of anticoagulants; D64.9 Anemia, unspecified; H26.9 Unspecified cataract; I50.9 Heart failure, unspecified; E11.9 Type 2 diabetes mellitus without complications; E78.5 Hyperlipidemia, unspecified; M17.10 Unilateral primary osteoarthritis, unspecified knee; E55.9 Vitamin D deficiency, unspecified; K44.9 Diaphragmatic hernia without obstruction or gangrene; Z88.2 Allergy status to sulfonamides; Z88.0 Allergy status to penicillin; Z79.899 Other long term (current) drug therapy; Z79.4 Long term (current) use of insulin; Z88.1 Allergy status to other antibiotic agents; Z90.710 Acquired absence of both cervix and uterus; Z90.89 Acquired absence of other organs; Z98.890 Other specified postprocedural states; Z90.722 Acquired absence of ovaries, bilateral; Z85.72 Personal history of non-Hodgkin lymphomas
CPT/HCPCS: 36415; 43239; 74019; 74177; 80048; 80053; 80076; 81001; 82962; 83615; 85025; 86140; 87045; 87046; 87081; 87086; 87088; 87147; 87186; 87493; 88305; 93005; 93010; 96361; 96365; 96375; 96376; 99220; 99225; A9270-GY; C9113; G0378; J0456; J0696; J1642; J1815-GY; J2930; J7030; J7050; J7120; Q9967

== ENCOUNTER 2019-06-27 15:56 | Inpatient (IN) | payer MEDICARE, OTHER ==
[2019-06-27] MEDS ORDERED: Polyvinyl Alcohol 1.4% Ophth Soln 15 ML Bottle EYEBOTH PRN (16:23)
[2019-06-27] MEDS ORDERED: diphenhydrAMINE 25 MG Cap PO PRN (16:23)
[2019-06-27] MEDS ORDERED: Acetaminophen 325 MG Tab PO PRN (16:23)
[2019-06-27] MEDS: CHOLESTYRAMINE PO SCH ×2 (19:15→19:17)
[2019-06-27] MEDS: Nystatin Susp 100,000 Unit/ML 5 ML UD Cup PO SCH (19:17)
[2019-06-27] MEDS ORDERED: Azithromycin 500 MG in Sodium Chloride 0.9% 250 ML IV SCH (21:00)
[2019-06-27] MEDS: Insulin Glargine,Human Rec. Analog 100 Units/ML 3 ML Pen SUBCUT SCH (21:01)
[2019-06-27] MEDS: Acetaminophen 500 MG Tab PO SCH (21:55)
[2019-06-27] MEDS: Melatonin 3 MG Tab PO SCH (21:55)
[2019-06-27] MEDS: Apixaban 5 MG Tab PO SCH (21:56)
[2019-06-27] MEDS: Metoprolol Tartrate 50 MG Tab PO SCH (21:58)
[2019-06-27] MEDS: Ondansetron 4 MG Tab.DIS PO PRN (22:05)
[2019-06-28] MEDS: Pantoprazole 40 MG Vial IVPUSH SCH (07:34)
[2019-06-28] MEDS: Apixaban 5 MG Tab PO SCH ×2 (07:38→21:41)
[2019-06-28] MEDS: Nystatin Susp 100,000 Unit/ML 5 ML UD Cup PO SCH ×4 (07:38→21:47)
[2019-06-28] MEDS: Metoprolol Tartrate 50 MG Tab PO SCH ×2 (07:39→21:43)
[2019-06-28] MEDS: Multivitamin Tab PO SCH (07:40)
[2019-06-28] MEDS: Potassium Chloride 10 MEQ Tab.ER PO SCH (07:40)
[2019-06-28] MEDS: CHOLESTYRAMINE PO SCH ×2 (07:41→21:41)
[2019-06-28] MEDS ORDERED: cefTRIAXone 1 GM Vial IVPUSH SCH (08:00)
[2019-06-28] MEDS: IBRUTINIB 280 MG PO SCH (13:10)
[2019-06-28] MEDS: Melatonin 3 MG Tab PO SCH (21:45)
[2019-06-28] MEDS: Acetaminophen 500 MG Tab PO SCH (21:45)
[2019-06-28] MEDS: Insulin Glargine,Human Rec. Analog 100 Units/ML 3 ML Pen SUBCUT SCH (21:49)
[2019-06-28] MEDS: Oxyquinoline/Emollient 0.3% Oint 1 OZ Canister TOP PRN (22:21)
[2019-06-29] MEDS: Potassium Chloride 10 MEQ Tab.ER PO SCH (08:08)
[2019-06-29] MEDS: Apixaban 5 MG Tab PO SCH ×2 (08:08→21:04)
[2019-06-29] MEDS: Metoprolol Tartrate 50 MG Tab PO SCH ×2 (08:09→21:05)
[2019-06-29] MEDS: Multivitamin Tab PO SCH (08:10)
[2019-06-29] MEDS: Pantoprazole 40 MG Vial IVPUSH SCH (08:11)
[2019-06-29] MEDS: cefTRIAXone 1 GM Vial IVPUSH SCH (08:11)
[2019-06-29] MEDS: Nystatin Susp 100,000 Unit/ML 5 ML UD Cup PO SCH ×4 (08:11→20:03)
[2019-06-29] MEDS: CHOLESTYRAMINE PO SCH ×2 (08:11→20:04)
[2019-06-29] MEDS: IBRUTINIB 280 MG PO SCH (12:39)
[2019-06-29] MEDS: Ondansetron 4 MG Tab.DIS PO PRN ×2 (15:01→20:14)
[2019-06-29] MEDS: Acetaminophen 500 MG Tab PO SCH (21:06)
[2019-06-29] MEDS: Melatonin 3 MG Tab PO SCH (21:06)
[2019-06-29] MEDS: Insulin Glargine,Human Rec. Analog 100 Units/ML 3 ML Pen SUBCUT SCH (21:07)
[2019-06-29] MEDS: Oxyquinoline/Emollient 0.3% Oint 1 OZ Canister TOP PRN (21:51)
[2019-06-30] MEDS: Potassium Chloride 10 MEQ Tab.ER PO SCH (08:20)
[2019-06-30] MEDS: Apixaban 5 MG Tab PO SCH ×2 (08:20→21:29)
[2019-06-30] MEDS: Metoprolol Tartrate 50 MG Tab PO SCH ×2 (08:21→21:28)
[2019-06-30] MEDS: CHOLESTYRAMINE PO SCH ×2 (08:22→19:27)
[2019-06-30] MEDS: Multivitamin Tab PO SCH (08:23)
[2019-06-30] MEDS: Pantoprazole 40 MG Vial IVPUSH SCH (08:26)
[2019-06-30] MEDS: cefTRIAXone 1 GM Vial IVPUSH SCH (08:27)
[2019-06-30] MEDS: Nystatin Susp 100,000 Unit/ML 5 ML UD Cup PO SCH ×4 (08:28→19:26)
[2019-06-30] MEDS: Oxyquinoline/Emollient 0.3% Oint 1 OZ Canister TOP PRN ×2 (08:29→21:31)
[2019-06-30] MEDS: Furosemide 40 MG Tab PO SCH (10:09)
[2019-06-30] MEDS: Metoclopramide 10 MG Tab PO SCH ×3 (10:10→19:26)
[2019-06-30] MEDS: IBRUTINIB 280 MG PO SCH (13:43)
[2019-06-30] MEDS: Insulin Glargine,Human Rec. Analog 100 Units/ML 3 ML Pen SUBCUT SCH (21:26)
[2019-06-30] MEDS: Acetaminophen 500 MG Tab PO SCH (21:27)
[2019-06-30] MEDS: Melatonin 3 MG Tab PO SCH (21:27)
[2019-07-01] MEDS: Pantoprazole 40 MG Vial IVPUSH SCH (07:34)
[2019-07-01] MEDS: cefTRIAXone 1 GM Vial IVPUSH SCH (07:41)
[2019-07-01] MEDS: Potassium Chloride 10 MEQ Tab.ER PO SCH (07:48)
[2019-07-01] MEDS: Nystatin Susp 100,000 Unit/ML 5 ML UD Cup PO SCH ×4 (07:48→19:34)
[2019-07-01] MEDS: Metoprolol Tartrate 50 MG Tab PO SCH ×2 (07:49→21:44)
[2019-07-01] MEDS: Furosemide 40 MG Tab PO SCH (07:49)
[2019-07-01] MEDS: Multivitamin Tab PO SCH (07:49)
[2019-07-01] MEDS: Apixaban 5 MG Tab PO SCH ×2 (07:50→21:44)
[2019-07-01] MEDS: Metoclopramide 10 MG Tab PO SCH ×3 (07:51→19:33)
[2019-07-01] MEDS: CHOLESTYRAMINE PO SCH ×2 (07:51→19:33)
[2019-07-01] MEDS: Loperamide 2 MG Cap PO PRN (08:19)
[2019-07-01] MEDS: IBRUTINIB 280 MG PO SCH (12:50)
[2019-07-01] MEDS: Ondansetron 4 MG Tab.DIS PO PRN (16:00)
[2019-07-01] MEDS: Acetaminophen 500 MG Tab PO SCH (21:43)
[2019-07-01] MEDS: Melatonin 3 MG Tab PO SCH (21:44)
[2019-07-01] MEDS: Insulin Glargine,Human Rec. Analog 100 Units/ML 3 ML Pen SUBCUT SCH (21:48)
[2019-07-02] MEDS: cefTRIAXone 1 GM Vial IVPUSH SCH (07:36)
[2019-07-02] MEDS: CHOLESTYRAMINE PO SCH ×2 (07:36→19:40)
[2019-07-02] MEDS: Pantoprazole 40 MG Vial IVPUSH SCH (07:43)
[2019-07-02] MEDS: Potassium Chloride 10 MEQ Tab.ER PO SCH (07:50)
[2019-07-02] MEDS: Metoprolol Tartrate 50 MG Tab PO SCH ×2 (07:51→21:02)
[2019-07-02] MEDS: Multivitamin Tab PO SCH (07:52)
[2019-07-02] MEDS: Nystatin Susp 100,000 Unit/ML 5 ML UD Cup PO SCH ×4 (07:52→19:39)
[2019-07-02] MEDS: Apixaban 5 MG Tab PO SCH ×2 (07:53→21:01)
[2019-07-02] MEDS: Furosemide 40 MG Tab PO SCH (07:53)
[2019-07-02] MEDS: Metoclopramide 10 MG Tab PO SCH ×3 (07:53→19:39)
[2019-07-02] MEDS: Ondansetron 4 MG Tab.DIS PO PRN ×2 (12:29→17:27)
[2019-07-02] MEDS: IBRUTINIB 280 MG PO SCH (12:30)
[2019-07-02] MEDS: Acetaminophen 500 MG Tab PO SCH ×2 (19:40→21:03)
[2019-07-02] MEDS: Melatonin 3 MG Tab PO SCH (21:01)
[2019-07-02] MEDS: Insulin Glargine,Human Rec. Analog 100 Units/ML 3 ML Pen SUBCUT SCH (21:03)
[2019-07-03] MEDS: Pantoprazole 40 MG Vial IVPUSH SCH (07:27)
[2019-07-03] MEDS: cefTRIAXone 1 GM Vial IVPUSH SCH (07:34)
[2019-07-03] MEDS: Nystatin Susp 100,000 Unit/ML 5 ML UD Cup PO SCH ×4 (07:46→19:32)
[2019-07-03] MEDS: Potassium Chloride 10 MEQ Tab.ER PO SCH (07:46)
[2019-07-03] MEDS: CHOLESTYRAMINE PO SCH ×2 (07:46→19:32)
[2019-07-03] MEDS: Metoclopramide 10 MG Tab PO SCH ×3 (07:47→19:33)
[2019-07-03] MEDS: Multivitamin Tab PO SCH (07:47)
[2019-07-03] MEDS: Furosemide 40 MG Tab PO SCH (07:47)
[2019-07-03] MEDS: Apixaban 5 MG Tab PO SCH ×2 (07:48→21:02)
[2019-07-03] MEDS: Metoprolol Tartrate 50 MG Tab PO SCH ×2 (07:49→21:01)
[2019-07-03] MEDS: IBRUTINIB 280 MG PO SCH (13:39)
[2019-07-03] MEDS: Ondansetron 4 MG Tab.DIS PO PRN (19:33)
[2019-07-03] MEDS: Insulin Glargine,Human Rec. Analog 100 Units/ML 3 ML Pen SUBCUT SCH (21:00)
[2019-07-03] MEDS: Melatonin 3 MG Tab PO SCH (21:02)
[2019-07-03] MEDS: Acetaminophen 500 MG Tab PO SCH (21:02)
[2019-07-04] MEDS: Pantoprazole 40 MG Vial IVPUSH SCH (07:27)
[2019-07-04] MEDS: cefTRIAXone 1 GM Vial IVPUSH SCH (07:33)
[2019-07-04] MEDS: CHOLESTYRAMINE PO SCH (07:43)
[2019-07-04] MEDS: Nystatin Susp 100,000 Unit/ML 5 ML UD Cup PO SCH ×4 (07:44→19:49)
[2019-07-04] MEDS: Metoclopramide 10 MG Tab PO SCH ×3 (07:44→19:49)
[2019-07-04] MEDS: Potassium Chloride 10 MEQ Tab.ER PO SCH (07:45)
[2019-07-04] MEDS: Apixaban 5 MG Tab PO SCH ×2 (07:45→21:37)
[2019-07-04] MEDS: Multivitamin Tab PO SCH (07:46)
[2019-07-04] MEDS: Furosemide 40 MG Tab PO SCH (07:47)
[2019-07-04] MEDS: Metoprolol Tartrate 50 MG Tab PO SCH ×2 (07:47→21:43)
[2019-07-04] MEDS: Ondansetron 4 MG Tab.DIS PO PRN ×2 (12:22→18:11)
--- NOTE | 2019-07-04 21:28 | PCM.PN ---
- General Info Date of Service: 07/04/19 Admission Dx/Problem (Free Text): Diarrhea Functional Status: Reports: Pain Controlled, Tolerating Diet (complains yet of nausea with eating), Ambulating (able to ambulate well but nurses note needs much prompting to do so) - Review of Systems General: Reports: Weakness, Fatigue, Malaise. Denies: Fever HEENT: Reports: No Symptoms Pulmonary: Denies: Shortness of Breath, Cough Cardiovascular: Denies: Chest Pain, Edema, Lightheadedness Gastrointestinal: Reports: Abdominal Pain (states abdomen is sore), Nausea, Vomiting, Other (states had more formed stool this am) Genitourinary: Reports: No Symptoms Musculoskeletal: Reports: No Symptoms Skin: Reports: No Symptoms Neurological: Reports: Weakness - Patient Data Vitals - Most Recent: Last Vital Signs Temp 99.5 F 07/04/19 20:00 Pulse 93 07/04/19 20:00 Resp 18 07/04/19 20:00 BP 117/41 L 07/04/19 20:00 Pulse Ox 98 07/04/19 20:00 Weight - Most Recent: 136 lb Lab Results Last 24 Hours: Laboratory Results - last 24 hr 07/04/19 Range/Units 07:26 POC Glucose 138 H (75-105) mg/dl Med Orders - Current: Current Medications Acetaminophen (Tylenol) 650 mg PO Q4H PRN PRN Reason: Pain Acetaminophen (Tylenol Extra Strength) 500 mg PO 2200 [facility] Last Admin: 07/03/19 21:02 Dose: 500 mg Apixaban (Eliquis) 2.5 mg PO BID@0800,2200 [facility] Last Admin: 07/04/19 07:45 Dose: 2.5 mg Artificial Tears (Liquitears 1.4% Ophth Soln) 1 - 2 ml EYEBOTH Q1H PRN PRN Reason: Dry Eyes Diphenhydramine HCl (Benadryl) 25 mg PO Q6H PRN PRN Reason: Other Furosemide (Lasix) 40 mg PO DAILY [facility] Last Admin: 07/04/19 07:47 Dose: 40 mg Heparin Sodium (Porcine) (Heparin Lock Flush 100 Units/Ml) 500 units FLUSH DAILY [facility] Last Admin: 07/04/19 07:42 Dose: 500 units Insulin Glargine (Lantus Solostar) 10 units SUBCUT 2200 [facility] Last Admin: 07/03/19 21:00 Dose: 10 units Loperamide HCl (Imodium) 2 mg PO ASDIRECTED PRN PRN Reason: Diarrhea Last Admin: 07/01/19 08:19 Dose: 2 mg Melatonin (Melatonin) 3 mg PO 2200 [facility] Last Admin: 07/03/19 21:02 Dose: 3 mg Metoclopramide HCl (Reglan) 5 mg PO TID [facility] Last Admin: 07/04/19 19:49 Dose: 5 mg Metoprolol Tartrate (Lopressor) 75 mg PO BID@0800,2200 [facility] Last Admin: 07/04/19 07:47 Dose: 75 mg Ptom Ibrutinib (280 Mg Tab) 280 mg PO 1300 [facility] Last Admin: 07/03/19 13:39 Dose: 280 mg Nystatin (Mycostatin) 5 ml PO QID [facility] Last Admin: 07/04/19 19:49 Dose: 5 ml Ondansetron HCl (Zofran Odt) 4 mg PO Q4H PRN PRN Reason: nausea, able to take PO Last Admin: 07/04/19 18:11 Dose: 4 mg Oxyquinoline Sulfate (Bag [place] Oint) 1 oz TOP ASDIRECTED PRN PRN Reason: Rash Last Admin: 06/30/19 21:31 Dose: 1 oz Pantoprazole Sodium (Protonix Iv) 40 mg IVPUSH DAILY [facility] Last Admin: 07/04/19 07:27 Dose: 40 mg Potassium Chloride (Klor-Con 10) 40 meq PO DAILY [facility] Last Admin: 07/04/19 07:45 Dose: 40 meq Discontinued Medications Ceftriaxone Sodium (Rocephin) 1 gm IVPUSH DAILY [facility] Last Admin: 06/28/19 07:36 Dose: 1 gm Ceftriaxone Sodium (Rocephin) 1 gm IVPUSH Q24H [facility] Last Admin: 07/04/19 07:33 Dose: 1 gm Azithromycin 500 mg/ Sodium (Chloride) 250 mls @ 250 mls/hr IV Q24H [facility] Last Admin: 06/27/19 20:53 Dose: 250 mls/hr Multivitamins/Minerals/Vitamin C (Tab-A-Alessandro) 1 tab PO DAILY [facility] Last Admin: 07/04/19 07:46 Dose: 1 tab Ptom (Cholestyramine 2 Gm) 2 gm PO BID [facility] Last Admin: 07/04/19 07:43 Dose: 2 gm - Exam General: Alert, Oriented, No Acute Distress HEENT: Other (has dry lips with dried sores, bloody in nature.) Neck: Supple Lungs: Clear to Auscultation, Normal Respiratory Effort Cardiovascular: Regular Rate, Regular Rhythm GI/Abdominal Exam: Normal Bowel Sounds, Soft, Non-Tender Extremities: Normal Inspection, No Pedal Edema Skin: Warm, Dry Neurological: No New Focal Deficit - Problem List & Annotations (1) Nausea SNOMED Code(s): 963733200 Code(s): R11.0 - NAUSEA Status: Acute Priority: High Current Visit: Yes - Problem List Review Problem List Initiated/Reviewed/Updated: Yes - Assessment Assessment:: Nausea - Plan Plan:: Patient continues to complain of intermittent nausea. Has had an episode of vomiting each day. All testing up to the point have been negative. EGD done last week, negative. Has been no IV Protonix. Does get relief with Zofran. Was started on Reglan last week, hasn't noted a difference with this, Does have dried, bloody sores to lips. Does ambulate well with staff but nurses report needs much prompting to do so. Physical therapy unable to provide any further skilled care for patient. IV antibiotics stopped today as has completed 14 days for pneumonia and chest xray on Wednesday did show improvement. Advised patient of lack of skilled care and need for discharge plan. Does not want to return to the detention, does not want to private pay swing bed. PT does feel she would be safe to return home, patient unsure. Will hold multivitamin, chemo med to see if contributing to nausea.
[2019-07-04] MEDS: Insulin Glargine,Human Rec. Analog 100 Units/ML 3 ML Pen SUBCUT SCH (21:38)
[2019-07-04] MEDS: Acetaminophen 500 MG Tab PO SCH (21:42)
[2019-07-04] MEDS: Melatonin 3 MG Tab PO SCH (21:43)
[2019-07-04] MEDS: Loperamide 2 MG Cap PO PRN (22:06)
[2019-07-05] MEDS: Pantoprazole 40 MG Vial IVPUSH SCH (07:34)
[2019-07-05] MEDS: Metoprolol Tartrate 50 MG Tab PO SCH ×2 (07:36→21:46)
[2019-07-05] MEDS: Nystatin Susp 100,000 Unit/ML 5 ML UD Cup PO SCH ×4 (07:36→21:47)
[2019-07-05] MEDS: Metoclopramide 10 MG Tab PO SCH ×3 (07:37→21:43)
[2019-07-05] MEDS: Furosemide 40 MG Tab PO SCH (07:37)
[2019-07-05] MEDS: Apixaban 5 MG Tab PO SCH ×2 (07:38→21:42)
[2019-07-05] MEDS: Potassium Chloride 10 MEQ Tab.ER PO SCH (07:38)
[2019-07-05] MEDS: Insulin Glargine,Human Rec. Analog 100 Units/ML 3 ML Pen SUBCUT SCH (21:40)
[2019-07-05] MEDS: Melatonin 3 MG Tab PO SCH (21:42)
[2019-07-05] MEDS: Acetaminophen 500 MG Tab PO SCH (21:44)
[2019-07-06] MEDS: Nystatin Susp 100,000 Unit/ML 5 ML UD Cup PO SCH ×3 (07:43→16:09)
[2019-07-06] MEDS: Metoprolol Tartrate 50 MG Tab PO SCH (07:43)
[2019-07-06] MEDS: Pantoprazole 40 MG Vial IVPUSH SCH (07:43)
[2019-07-06] MEDS: Furosemide 40 MG Tab PO SCH (07:44)
[2019-07-06] MEDS: Potassium Chloride 10 MEQ Tab.ER PO SCH (07:44)
[2019-07-06] MEDS: Metoclopramide 10 MG Tab PO SCH ×2 (07:44→14:29)
[2019-07-06] MEDS: Apixaban 5 MG Tab PO SCH (07:45)
[2019-07-06 08:58] VITALS: BP 115/51
--- NOTE | 2019-07-06 20:57 | PCM.DCSUM1 ---
Discharge Summary - Hospital Course Free Text/Narrative:: Patient presented to clinic to see Dr. Wang due to weakness, nausea and diarrhea. Had started to feel more weak 3 days prior. Developed diarrhea yesterday. Had not been eating out, not leaving the home. No exposure to anyone ill. Due to weakness, did not feel could manage self at home. Admitted for further work up. WBC on admit 19.8, hemoglobin 10.4. Creatinine 1.4. Sodium 132. Alk phos elevated. Patient does have history of CLL. During acute stay, continued to have ongoing issues with diarrhea, nausea and vomiting. Stool studies all normal. EGD done normal except for presence of yeast. Abdominal CT negative. Has been started on Questran for better control of diarrhea. Given Zofran for nausea. Labs have stabilized. Transferred to swing bed for ongoing physical therapy. Diagnosis: Stroke: No Modified [place] Scale: No Symptoms at All Modified Miranda Scale Score: 0 - Discharge Data Discharge Date: 07/06/19 Discharge Disposition: Home, W Home Health Agency 06 Condition: Fair - Discharge Diagnosis/Problem(s) (1) Nausea SNOMED Code(s): 616499799 ICD Code: R11.0 - NAUSEA Status: Acute Priority: High - Patient Summary/Data Complications: none Consults: Consultations 06/27/19 16:23 PT Evaluation and Treatment [CONS] Routine Hospital Course: Patient has slowly improved over the last 2 weeks. Does still feel weak but is ambulating well with standby assist. PT does feel safe for patient to return home, able to do stairs. Daughter will be staying with her. Patient did continue to have diarrhea but over the last week has significantly reduced in frequency. Last 2 days, no loose stools. Nausea is better. Have stopped multivitamins, started Reglan. As EGD did show yeast, has been on Nystatin swish and swallow and will continue this on discharge. Did hold chemo pill but patient did not see much change. Has been using vaseline on lips which gives patient symptom relief. Patient states today that she has used Valtrex before as her chemo pill has caused mouth sores in the past, will discharge home on Valtrex. Continue Reglan BID. Nystatin swish and swallow for 2 weeks. Discharge home and resume home health. Nursing to continue to monitor mouth sores, nausea and stools. Monitor blood pressure. Physical and occupational therapy for strengthening. Patient homebound due to weakness, inability to drive as a result. Dr. Wang to oversee Home Health plan of care. - Patient Instructions Diet: Diabetic Diet Activity: As Tolerated - Discharge Plan *PRESCRIPTION DRUG MONITORING PROGRAM REVIEWED*: No *COPY OF PRESCRIPTION DRUG MONITORING REPORT IN PATIENT ASHKAN: No Prescriptions/Med Rec: Metoclopramide HCl [Reglan] 5 mg PO BID #60 tablet Nystatin [Mycostatin] 5 ml PO QID #280 ml valACYclovir HCl [Valtrex] 500 mg PO BID #14 tablet Home Medications: Home Meds Acetaminophen [Tylenol] 650 mg PO Q4H PRN 08/02/14 [History] Cholecalciferol (Vitamin D3) [Vitamin D3] 2,000 unit PO DAILY 12/11/14 [History] Metoprolol Tartrate [Lopressor] 75 mg PO BID 12/27/15 [History] Insulin Detemir [Levemir] 10 unit SUBCUT BEDTIME 01/20/16 [History] Acetaminophen [Tylenol Extra Strength] 500 mg PO BEDTIME 02/22/19 [History] Apixaban [Eliquis] 2.5 mg PO BID 02/22/19 [History] Calcium Carbonate [Tums] 1,000 mg PO QID PRN 02/22/19 [History] Dextran 70/Hypromellose [Artificial Tears] 1 - 2 drop EYEBOTH Q1H PRN 02/22/19 [ History] Furosemide 40 mg PO BID 02/22/19 [History] Insulin Lispro [HumaLOG] 4 units SUBCUT ACBREAKFAST 02/22/19 [History] Melatonin 5 mg PO BEDTIME 02/22/19 [History] Multivitamin/Iron/Folic Acid [Multi-Day Plus Iron Tablet] 1 tab PO DAILY [History] Omeprazole 20 mg PO DAILY 02/22/19 [History] Potassium Chloride [Klor-Con M20] 40 meq PO DAILY 02/22/19 [History] Fexofenadine HCl 180 mg PO 06/20/19 [History] Ibrutinib 280 mg PO 1300 06/20/19 [History] Insulin Lispro [Humalog] 6 units SUBCUT ACLUNCH 06/20/19 [History] Insulin Lispro [Humalog] 8 units SUBCUT ACDINNER 06/20/19 [History] Metoclopramide HCl [Reglan] 5 mg PO BID #60 tablet 07/06/19 [Rx] Nystatin [Mycostatin] 5 ml PO QID #280 ml 07/06/19 [Rx] valACYclovir HCl [Valtrex] 500 mg PO BID #14 tablet 07/06/19 [Rx] Referrals: Óscar Wang MD [Primary Care Provider] - (follow up with Dr. Wang in 10 days) - Discharge Summary/Plan Comment DC Time >30 min.: No - General Info Date of Service: 07/06/19 Admission Dx/Problem (Free Text: Diarrhea Functional Status: Reports: Pain Controlled, Tolerating Diet, Ambulating, Urinating - Review of Systems General: Reports: Weakness, Fatigue, Malaise HEENT: Reports: Other (mouth sores). Denies: Ear Pain, Sore Throat Pulmonary: Denies: Shortness of Breath, Cough Cardiovascular: Denies: Chest Pain, Palpitations, Dyspnea on Exertion Gastrointestinal: Reports: Nausea. Denies: Abdominal Pain, Diarrhea (diarrhea ceased last 2 days), Vomiting Genitourinary: Reports: No Symptoms Musculoskeletal: Reports: No Symptoms Skin: Reports: No Symptoms Neurological: Reports: Weakness - Patient Data Vitals - Most Recent: Last Vital Signs Temp 97.7 F 07/06/19 08:00 Pulse 80 07/06/19 08:00 Resp 18 07/06/19 08:00 BP 115/51 L 07/06/19 08:00 Pulse Ox 100 07/06/19 08:00 Weight - Most Recent: 136 lb Lab Results - Last 24 hrs: Laboratory Results - last 24 hr 07/05/19 07/06/19 07/06/19 Range/Units 21:39 11:54 16:48 POC Glucose 147 H 140 H 127 H (75-105) mg/dl Med Orders - Current: Current Medications Discontinued Medications Acetaminophen (Tylenol) 650 mg PO Q4H PRN PRN Reason: Pain Last Admin: 07/05/19 11:57 Dose: 650 mg Acetaminophen (Tylenol Extra Strength) 500 mg PO 2200 [facility] Last Admin: 07/05/19 21:44 Dose: 500 mg Apixaban (Eliquis) 2.5 mg PO BID@0800,2200 ERIC Last Admin: 07/06/19 07:45 Dose: 2.5 mg Artificial Tears (Liquitears 1.4% Ophth Soln) 1 - 2 ml EYEBOTH Q1H PRN PRN Reason: Dry Eyes Ceftriaxone Sodium (Rocephin) 1 gm IVPUSH DAILY [facility] Last Admin: 06/28/19 07:36 Dose: 1 gm Ceftriaxone Sodium (Rocephin) 1 gm IVPUSH Q24H [facility] Last Admin: 07/04/19 07:33 Dose: 1 gm Diphenhydramine HCl (Benadryl) 25 mg PO Q6H PRN PRN Reason: Other Furosemide (Lasix) 40 mg PO DAILY [facility] Last Admin: 07/06/19 07:44 Dose: 40 mg Heparin Sodium (Porcine) (Heparin Lock Flush 100 Units/Ml) 500 units FLUSH DAILY [facility] Last Admin: 07/06/19 07:45 Dose: 500 units Azithromycin 500 mg/ Sodium (Chloride) 250 mls @ 250 mls/hr IV Q24H [facility] Last Admin: 06/27/19 20:53 Dose: 250 mls/hr Insulin Glargine (Lantus Solostar) 10 units SUBCUT 2200 [facility] Last Admin: 07/05/19 21:40 Dose: 10 units Loperamide HCl (Imodium) 2 mg PO ASDIRECTED PRN PRN Reason: Diarrhea Last Admin: 07/04/19 22:06 Dose: 2 mg Melatonin (Melatonin) 3 mg PO 2200 [facility] Last Admin: 07/05/19 21:42 Dose: 3 mg Metoclopramide HCl (Reglan) 5 mg PO TID [facility] Last Admin: 07/06/19 14:29 Dose: 5 mg Metoprolol Tartrate (Lopressor) 75 mg PO BID@0800,2200 [facility] Last Admin: 07/06/19 07:43 Dose: 75 mg Multivitamins/Minerals/Vitamin C (Tab-A-Alessandro) 1 tab PO DAILY [facility] Last Admin: 07/04/19 07:46 Dose: 1 tab Ptom (Cholestyramine 2 Gm) 2 gm PO BID [facility] Last Admin: 07/04/19 07:43 Dose: 2 gm Ptom Ibrutinib (280 Mg Tab) 280 mg PO 1300 [facility] Last Admin: 07/03/19 13:39 Dose: 280 mg Nystatin (Mycostatin) 5 ml PO QID [facility] Last Admin: 07/06/19 16:09 Dose: 5 ml Ondansetron HCl (Zofran Odt) 4 mg PO Q4H PRN PRN Reason: nausea, able to take PO Last Admin: 07/04/19 18:11 Dose: 4 mg Oxyquinoline Sulfate (Bag Cornell Oint) 1 oz TOP ASDIRECTED PRN PRN Reason: Rash Last Admin: 06/30/19 21:31 Dose: 1 oz Pantoprazole Sodium (Protonix Iv) 40 mg IVPUSH DAILY [facility] Last Admin: 07/06/19 07:43 Dose: 40 mg Potassium Chloride (Klor-Con 10) 40 meq PO DAILY [facility] Last Admin: 07/06/19 07:44 Dose: 40 meq - Exam General: Reports: Alert, Oriented HEENT: Reports: Mucous Membr. Moist/[place], Other (open ulcerated areas to lips) Neck: Reports: Supple Lungs: Reports: Clear to Auscultation, Normal Respiratory Effort Cardiovascular: Reports: Regular Rate, Regular Rhythm GI/Abdominal Exam: Normal Bowel Sounds, Soft, Non-Tender Extremities: Normal Inspection, No Pedal Edema Skin: Reports: Warm, Dry Neurological: Reports: No New Focal Deficit
== END 2019-07-06 18:20 | disposition home health service (06) | DRG 392 ==
LOC: CC.MS 15:56 → UNDOADMIN 16:17 → CC.MS 16:17
PROVIDERS: ADMIT Physician Assistant Medical; ATTEND Family Medicine
DX: R19.7 Diarrhea, unspecified (principal); B37.81 Candidal esophagitis; Z79.4 Long term (current) use of insulin; Z79.899 Other long term (current) drug therapy; Z85.6 Personal history of leukemia
CPT/HCPCS: 71046; 82962; 97110-GP; 97161-GP; A9270-GY; C9113; J0456; J0696; J1642; J1815-GY; J7050

== ENCOUNTER 2021-02-15 11:39 | Emergency (ER) | payer MEDICARE, OTHER ==
--- NOTE | 2021-02-15 12:24 | EDM.PDOC ---
ED HPI GENERAL MEDICAL PROBLEM - General Chief Complaint: General Stated Complaint: R) great toe pain Time Seen by Provider: 02/15/21 11:50 Source of Information: Reports: Patient History Limitations: Reports: No Limitations - History of Present Illness INITIAL COMMENTS - FREE TEXT/NARRATIVE: Lashawn presents today due to persistent bleeding from right great toe. Patient had noted the area to be oozing for the last week but a simple bandage seemed to control it. Last evening when changing the bandage, part of the skin near the base of her toe came off with the bandage and it has been oozing since. Last evening, saturated 2 paper towels and 3 Kleenex's. Unable to get the bleeding stopped today. Is concerned due to her diabetes. Has no pain but admits that she has minimal sensation in her feet due to her diabetes. Has not noted any pus or redness to toe. 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) - Related Data Allergies Allergy/AdvReac Type Severity Reaction Status Date / Time Penicillins Allergy Intermediate Rash Verified 01/29/21 14:38 clarithromycin [From Biaxin] AdvReac Intermediate Headache Verified 01/29/21 14:38 Sulfa (Sulfonamide AdvReac Intermediate Stomach Verified 01/29/21 14:38 Antibiotics) Upset lisinopril AdvReac Mild Cough Verified 01/29/21 14:38 Home Meds: Home Meds Acetaminophen [Tylenol] 650 mg PO Q4H PRN 08/02/14 [History] Cholecalciferol (Vitamin D3) [Vitamin D3] 2,000 unit PO DAILY 12/11/14 [History] Metoprolol Tartrate [Lopressor] 50 mg PO BID 12/27/15 [History] Insulin Detemir [Levemir] 10 unit SUBCUT BEDTIME 01/20/16 [History] Acetaminophen [Tylenol Extra Strength] 500 mg PO BEDTIME 02/22/19 [History] Apixaban [Eliquis] 2.5 mg PO BID 02/22/19 [History] Furosemide 40 mg PO BID 02/22/19 [History] Melatonin 5 mg PO BEDTIME 02/22/19 [History] Multivitamin/Iron/Folic Acid [Multi-Day Plus Iron Tablet] 1 tab PO DAILY 02/22/19 [History] Omeprazole 20 mg PO DAILY 02/22/19 [History] Potassium Chloride [Klor-Con M20] 40 meq PO DAILY 02/22/19 [History] Acalabrutinib [Calquence] 100 mg PO BID 04/26/20 [History] Fexofenadine [Daksha] 180 mg PO DAILY 04/26/20 [History] Hydrocodone/Acetaminophen [Hydrocodone-Acetamin 5-325 mg] 1 each PO Q4H PRN 04/26/20 [History] Calcium Carbonate [Calcium] 500 mg PO BID 10/22/20 [History] Past Medical History HEENT History: Reports: Allergic Rhinitis, Cataract, Sinusitis Cardiovascular History: Reports: Afib, Heart Failure, Hypertension Gastrointestinal History: Reports: Diverticulosis, GERD Genitourinary History: Reports: Chronic Renal Insuffiency, UTI, Recurrent PATROL 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: Musculoskeletal History: Reports: Fracture, Osteoporosis Neurological History: Reports: Neuropathy, Diabetic Endocrine/Metabolic History: Reports: Diabetes, Type II Hematologic History: Reports: Blood Transfusion(s) Oncologic (Cancer) History: Reports: Leukemia Dermatologic History: Reports: Cellulitis - Infectious Disease History Infectious Disease History: Reports: VRE - Past Surgical History HEENT Surgical History: Reports: Cataract Surgery Cardiovascular Surgical History: Reports: None GI Surgical History: Reports: Cholecystectomy, Colonoscopy, EGD Female Surgical History: Reports: Hysterectomy Endocrine Surgical History: Reports: None Neurological Surgical History: Reports: None Musculoskeletal Surgical History: Reports: None Other Oncologic Surgeries/Procedures: Patient has and implanted port, which has been accessed. Dermatological Surgical History: Reports: None Social & Family History - Family History Family Medical History: No Pertinent Family History - Tobacco Use Tobacco Use Status *Q: Never Tobacco User - Caffeine Use Caffeine Use: Reports: Coffee ED ROS GENERAL - Review of Systems Review Of Systems: See Below Constitutional: Denies: Fever, Chills, Malaise, Weakness, Fatigue HEENT: Reports: No Symptoms Respiratory: Reports: No Symptoms Cardiovascular: Reports: No Symptoms Endocrine: Reports: No Symptoms GI/Abdominal: Reports: No Symptoms Skin: Reports: Wound (oozing to base of right great toe near base of nail bed.) ED EXAM, GENERAL - Physical Exam Exam: See Below Exam Limited By: No Limitations General Appearance: Alert, WD/WN, No Apparent Distress Skin Exam: Other (Patient has small skin flap to base of right great toenail that is persistently oozing blood despite pressure applied for 5 minutes. Did cauterize with silver nitrate stick with cessation of bleeding. ) Course - Re-Assessments/Exams Free Text/Narrative Re-Assessment/Exam: 02/15/21 12:25- Patient monitored for short time, no further bleeding. Xeroform and telfa with coban applied to toe. Patient tolerated well. Departure - Departure Time of Disposition: 12:30 Disposition: Home, Self-Care 01 Condition: Good Clinical Impression: Hemorrhage of skin lesion - Discharge Information *PRESCRIPTION DRUG MONITORING PROGRAM REVIEWED*: No *COPY OF PRESCRIPTION DRUG MONITORING REPORT IN PATIENT ASHKAN: No Instructions: Wound Care, Adult, How to Change Your Wound Dressing, [id number] Referrals: Óscar Wang MD [Primary Care Provider] - Forms: ED Department Discharge Additional Instructions: 1. Keep bandage intact for next 24 hours. 2. Monitor tip of toe for increased redness or discoloration 3. May apply new bandage tomorrow 4. Follow up with Dr. Wang on Wednesday as planned. Advise to have him recheck your toe at that time
[2021-02-15 14:26] VITALS: BP 166/65; PULSE 76
== END 2021-02-15 12:30 | disposition home or self-care (01) ==
LOC: CC.ED 11:39
DX: L98.9 Disorder of the skin and subcutaneous tissue, unspecified (principal); I48.91 Unspecified atrial fibrillation; I13.0 Hypertensive heart and chronic kidney disease with heart failure and stage 1 through stage 4 chronic kidney disease, or unspecified chronic kidney disease; I50.9 Heart failure, unspecified; I12.9 Hypertensive chronic kidney disease with stage 1 through stage 4 chronic kidney disease, or unspecified chronic kidney disease; N18.9 Chronic kidney disease, unspecified; K21.9 Gastro-esophageal reflux disease without esophagitis; E11.40 Type 2 diabetes mellitus with diabetic neuropathy, unspecified; E11.22 Type 2 diabetes mellitus with diabetic chronic kidney disease; Z88.0 Allergy status to penicillin; Z88.1 Allergy status to other antibiotic agents; Z88.2 Allergy status to sulfonamides; Z88.8 Allergy status to other drugs, medicaments and biological substances; Z79.4 Long term (current) use of insulin; Z79.01 Long term (current) use of anticoagulants; Z79.899 Other long term (current) drug therapy
CPT/HCPCS: 99283

== ENCOUNTER → 2021-10-17 | Day surgery (SDC) | payer MEDICARE, OTHER ==
[~2021-10-17] MED LIST: Lactated Ringers 1,000 ML IV SCH
[2021-10-17 09:38] VITALS: BP 139/91; PULSE 70
--- NOTE | 2021-10-18 13:06 | OR ---
DATE OF OPERATION: 10/17/2021 PREOPERATIVE DIAGNOSIS: 1. HEME-POSITIVE STOOL. 2. ANEMIA. 3. CHRONIC DYSPEPSIA. POSTOPERATIVE DIAGNOSIS: 1. HEME-POSITIVE STOOL. 2. ANEMIA. 3. CHRONIC DYSPEPSIA. SURGEON: Óscar Wang MD PROCEDURE: DIAGNOSTIC ESOPHAGOGASTRODUODENOSCOPY. ANESTHESIA: MAC. COMPLICATIONS: None. SPECIMEN: None. FINDINGS: 1. Essentially normal diagnostic EGD. 2. No signs of peptic ulcer disease. 3. Minimal small hiatal hernia with spontaneous GERD without associated esophagitis. RECOMMENDATIONS: Ongoing medical followup. INDICATIONS: The patient is an 81-year-old female with a longstanding history of chronic dyspepsia. She has been having some ongoing nausea. She recently has dropped her hemoglobins and has had 2 or 3 stools heme-positive. We proceeded with a diagnostic EGD. DESCRIPTION OF PROCEDURE: The patient was prepped and draped and placed in the left lateral decubitus position. A lubricated Olympus gastroscope was inserted over a bit, advanced to the cricopharyngeus area, and easily intubated into the esophagus. The esophageal lining appeared benign in its entire course. The Z- line was crisp around 38 cm with may be a very minimal hiatal hernia present. Minimal spontaneous reflux was seen. There was no distal esophagitis, stricturing, ulceration, or Mendez changes. The scope was advanced into the stomach, through the pylorus, and into the second portion of the duodenum. This and the duodenal bulb were benign. The scope was brought back into the stomach and retroflexed. The upper fundus and cardia were unremarkable. Upon straightening, the rest of the fundus and antrum were completely benign. No signs of peptic ulcer disease, polyp, mass, bleeding, or ulceration. Air was then suctioned. Scope removed without complication. MIREYA/KE /[id number]
== END ==
LOC: CC.SDS 08:10
PROVIDERS: ATTEND Family Medicine
DX: K21.9 Gastro-esophageal reflux disease without esophagitis (principal); K44.9 Diaphragmatic hernia without obstruction or gangrene; D64.9 Anemia, unspecified; G89.29 Other chronic pain; E11.9 Type 2 diabetes mellitus without complications; Z79.4 Long term (current) use of insulin; Z88.8 Allergy status to other drugs, medicaments and biological substances; Z88.2 Allergy status to sulfonamides; Z88.0 Allergy status to penicillin; Z79.899 Other long term (current) drug therapy
CPT/HCPCS: 43235; J7120

== ENCOUNTER → 2021-11-25 | Day surgery (SDC) | payer MEDICARE, OTHER ==
[~2021-11-25] MED LIST changes: +Meperidine PF 25 MG/ML SDV IV ONE; +Midazolam 1 MG/ML 2 ML SDV IV ONE
[2021-11-25 13:37] VITALS: BP 101/54; PULSE 80
== END ==
LOC: CC.SDS 11:21
PROVIDERS: ATTEND Family Medicine
DX: R19.5 Other fecal abnormalities (principal); D64.9 Anemia, unspecified; I48.91 Unspecified atrial fibrillation; I11.0 Hypertensive heart disease with heart failure; I50.9 Heart failure, unspecified; E78.5 Hyperlipidemia, unspecified; M81.0 Age-related osteoporosis without current pathological fracture; E11.9 Type 2 diabetes mellitus without complications; C91.10 Chronic lymphocytic leukemia of B-cell type not having achieved remission; Z88.8 Allergy status to other drugs, medicaments and biological substances; Z88.2 Allergy status to sulfonamides; Z88.0 Allergy status to penicillin; Z79.899 Other long term (current) drug therapy; Z79.01 Long term (current) use of anticoagulants; Z79.4 Long term (current) use of insulin; Z98.890 Other specified postprocedural states
CPT/HCPCS: J1642; J2175; J2250; J7120

== ENCOUNTER 2021-12-05 19:25 | Observation (INO) | payer MEDICARE, OTHER ==
[2021-12-05] MEDS ORDERED: Sodium Chloride 0.9% 250 ML IV SCH (21:15)
[2021-12-05] MEDS ORDERED: Ondansetron 4 MG Tab.DIS PO PRN ×2 (22:02→22:10)
[2021-12-05] MEDS ORDERED: Acetaminophen 325 MG Tab PO PRN (22:02)
[2021-12-05] MEDS ORDERED: HYDROmorphone 1 MG/ML Syringe IVPUSH PRN (22:02)
[2021-12-05] MEDS ORDERED: Ondansetron 4 MG/2 ML SDV IV PRN (22:02)
[2021-12-05] MEDS ORDERED: Acetaminophen/HYDROcodone 325-5 MG Tab PO PRN (22:02)
[2021-12-05] MEDS ORDERED: DEXTRAN OP PRN (22:10)
[2021-12-05] MEDS ORDERED: Take Home: Acetaminophen/HYDROcodone 325-5 MG, 2 Tab Pack PO PRN (22:10)
[2021-12-05] MEDS ORDERED: HYPROMELLOSE OP PRN (22:10)
[2021-12-05] MEDS ORDERED: cefTRIAXone 1 GM Vial IVPUSH SCH (22:15)
[2021-12-06 04:44] VITALS: PULSE 79
[2021-12-06] MEDS ORDERED: Non-Formulary Medication 1 Each (Insuln Asp Prot/Insulin Aspart [Novolog Mix 70-30] 100 UN SQ SCH ×2 (07:00→17:00)
[2021-12-06] MEDS ORDERED: Insulin NPH HUM/REG Insulin HM 100 UNIT/ML 3 ML Vial SQ SCH ×3 (07:00→17:00)
[2021-12-06] MEDS ORDERED: Pantoprazole 40 MG Tab.CR PO SCH (07:00)
[2021-12-06] MEDS ORDERED: ACALABRUTINIB 100 MG PO SCH (08:00)
[2021-12-06] MEDS ORDERED: Non-Formulary Medication 1 Each (Cholecalciferol (Vitamin D3) [Vitamin D3] 2,000 UNIT Caps PO SCH (08:00)
[2021-12-06] MEDS ORDERED: Non-Formulary Medication 1 Each (Calcium Carbonate [Calcium] 500 MG Tablet) PO SCH (08:00)
[2021-12-06] MEDS ORDERED: Non-Formulary Medication 1 Each (Lutein [Lutein] 20 MG Tablet) PO SCH (08:00)
[2021-12-06] MEDS ORDERED: MULTIVITAMIN PO SCH (08:00)
[2021-12-06] MEDS ORDERED: [UNRECOGNIZED DRUG - OTHER] PO SCH (08:00)
[2021-12-06] MEDS ORDERED: IRON PO SCH (08:00)
[2021-12-06] MEDS ORDERED: Non-Formulary Medication 1 Each (Potassium Chloride [Klor-Con M20] 20 MEQ Tab.Er) PO SCH (08:00)
[2021-12-06] MEDS ORDERED: Non-Formulary Medication 1 Each (Fexofenadine [Allegra] 180 MG Tablet) PO SCH (08:00)
[2021-12-06] MEDS ORDERED: Metoprolol Tartrate 50 MG Tab PO SCH (08:00)
[2021-12-06] MEDS ORDERED: FOLIC ACID PO SCH (08:00)
[2021-12-06] MEDS ORDERED: Furosemide 40 MG Tab PO SCH (08:00)
[2021-12-06] MEDS ORDERED: Non-Formulary Medication 1 Each (Apixaban [Eliquis] 2.5 MG Tablet) PO SCH (08:00)
[2021-12-06] MEDS ORDERED: Take Home: Pantoprazole 40 MG Tab.CR, 1 Tab Pack PO SCH (08:00)
[2021-12-06 08:43] VITALS: BP 137/56
== END 2021-12-06 11:50 | disposition home or self-care (01) ==
LOC: CC.ED 19:25 → UNDOADMOB 21:15 → CC.MS 21:15 → UNDODISOB 12-06 11:50
PROVIDERS: ADMIT Nurse Practitioner Family; ATTEND Family Medicine
DX: R10.84 Generalized abdominal pain (principal); R11.10 Vomiting, unspecified; L89.309 Pressure ulcer of unspecified buttock, unspecified stage; D64.9 Anemia, unspecified; N39.0 Urinary tract infection, site not specified; I13.0 Hypertensive heart and chronic kidney disease with heart failure and stage 1 through stage 4 chronic kidney disease, or unspecified chronic kidney disease; I50.9 Heart failure, unspecified; N18.9 Chronic kidney disease, unspecified; E11.40 Type 2 diabetes mellitus with diabetic neuropathy, unspecified; E11.22 Type 2 diabetes mellitus with diabetic chronic kidney disease; C91.10 Chronic lymphocytic leukemia of B-cell type not having achieved remission; I48.91 Unspecified atrial fibrillation; K21.9 Gastro-esophageal reflux disease without esophagitis; M81.0 Age-related osteoporosis without current pathological fracture; Z79.4 Long term (current) use of insulin; Z79.899 Other long term (current) drug therapy
CPT/HCPCS: 36415; 36430; 80053; 81001; 85025; 86850; 86900; 86901; 86920; 86922; 87086; 96374; 96375; 99285; A9270-GY; G0378; J0696; J1170; J1642; J1815-GY; J2405; J7030; P9016

== ENCOUNTER 2022-02-13 05:59 | Inpatient (IN) | payer MEDICARE, OTHER ==
[2022-02-13] MEDS ORDERED: Ondansetron 4 MG/2 ML SDV IVPUSH ONE (07:26)
[2022-02-13 07:32] LABS: PTT,PARTIAL THROMBOPLSTIN TIME 37.2 SEC (23.2-32.3)
[2022-02-13] MEDS ORDERED: Ondansetron 4 MG Tab.DIS PO PRN ×2 (08:07→08:44)
[2022-02-13] MEDS ORDERED: Ondansetron 4 MG/2 ML SDV IV PRN (08:07)
[2022-02-13] MEDS ORDERED: Sodium Chloride 0.9% 1,000 ML IV SCH (08:15)
[2022-02-13] MEDS ORDERED: Albumin 25% 12.5 GM/50 ML Bag IV ONE (08:20)
[2022-02-13] MEDS ORDERED: Acetaminophen 325 MG Tab PO PRN (08:44)
[2022-02-13] MEDS ORDERED: Metoprolol Tartrate 50 MG Tab PO SCH (09:30)
[2022-02-13] MEDS ORDERED: Apixaban 5 MG Tab PO SCH (09:30)
[2022-02-13] MEDS ORDERED: Potassium Chloride 10 MEQ Tab.ER PO SCH (09:30)
[2022-02-13] MEDS ORDERED: Polyvinyl Alcohol 1.4% Ophth Soln 15 ML Bottle EYEBOTH PRN (09:37)
[2022-02-13] MEDS ORDERED: VENETOCLAX 100 MG PO SCH (09:45)
[2022-02-13] MEDS ORDERED: Glucagon,Human Recombinant 1 MG Vial IM PRN (09:54)
[2022-02-13] MEDS ORDERED: 50% Dextrose in Water 50 ML Syringe IVPUSH PRN (09:54)
[2022-02-13] MEDS: Furosemide 40 MG Tab PO SCH ×2 (10:58→12:03)
[2022-02-13] MEDS ORDERED: Insulin NPH HUM/REG Insulin HM 100 UNIT/ML 3 ML Vial SQ SCH ×2 (12:00→17:00)
[2022-02-13] MEDS: Insulin Lispro 100 Units/ML 3 ML Vial SUBCUT SCH ×2 (12:03→17:49)
[2022-02-13] MEDS ORDERED: Acetaminophen/HYDROcodone 325-5 MG Tab PO PRN (12:47)
[2022-02-13 16:37] VITALS: BP 122/68; PULSE 84
[2022-02-13] MEDS ORDERED: Albuterol/Ipratropium 3.0-0.5 MG/3 ML Neb Soln NEB PRN (19:14)
[2022-02-13] MEDS ORDERED: Furosemide 20 MG/2 ML VIAL IVPUSH ONE ×3 (19:15→19:39)
[2022-02-13] MEDS ORDERED: methylPREDNISolone Sodium Succinate 125 MG/2 ML SDV IVPUSH ONE (19:16)
[2022-02-13] MEDS ORDERED: methylPREDNISolone Sodium Succinate 125 MG/2 ML SDV ONE (19:38)
[2022-02-13] MEDS ORDERED: Furosemide 20 MG/2 ML VIAL ONE (19:39)
[2022-02-13] MEDS ORDERED: Albuterol/Ipratropium 3.0-0.5 MG/3 ML Neb Soln ONE (19:39)
[2022-02-13] MEDS ORDERED: Furosemide 20 MG Tab ONE (19:59)
[2022-02-13] MEDS ORDERED: Furosemide 40 MG/4 ML VIAL ONE (19:59)
[2022-02-13] MEDS ORDERED: Calcium Carbonate 500 MG Tab.Chew PO SCH (20:00)
[2022-02-13] MEDS ORDERED: Melatonin 3 MG Tab PO SCH (20:00)
[2022-02-14] MEDS ORDERED: Pantoprazole 40 MG Tab.CR PO SCH (07:00)
[2022-02-14] MEDS ORDERED: Beta-Carotene (Vitamin A) w/Vitamin C & E plus Minerals Tab PO SCH (08:00)
[2022-02-14] MEDS ORDERED: Cholecalciferol (Vitamin D3) 25 MCG Tab PO SCH (08:00)
[2022-02-14] MEDS ORDERED: Loratadine 10 MG Tab PO SCH (08:00)
[2022-02-14] MEDS ORDERED: Multivitamins with Iron/Calcium/Folic Acid/Minerals Tab PO SCH (08:00)
== END 2022-02-13 22:10 | DRG 641 ==
LOC: CC.ED 05:59 → CC.MS 07:50 → UNDOADMIN 07:50 → CC.MS 08:07
PROVIDERS: ADMIT Nurse Practitioner Family; ATTEND Nurse Practitioner Family
DX: E87.1 Hypo-osmolality and hyponatremia (principal); R60.9 Edema, unspecified; R79.89 Other specified abnormal findings of blood chemistry; E88.09 Other disorders of plasma-protein metabolism, not elsewhere classified; R06.03 Acute respiratory distress; R11.0 Nausea; D64.9 Anemia, unspecified; Z66 Do not resuscitate; C91.10 Chronic lymphocytic leukemia of B-cell type not having achieved remission; J30.9 Allergic rhinitis, unspecified; D63.1 Anemia in chronic kidney disease; I48.91 Unspecified atrial fibrillation; Z86.74 Personal history of sudden cardiac arrest; K21.9 Gastro-esophageal reflux disease without esophagitis; I13.0 Hypertensive heart and chronic kidney disease with heart failure and stage 1 through stage 4 chronic kidney disease, or unspecified chronic kidney disease; I50.9 Heart failure, unspecified; N18.9 Chronic kidney disease, unspecified; E11.22 Type 2 diabetes mellitus with diabetic chronic kidney disease; Z98.49 Cataract extraction status, unspecified eye; Z90.49 Acquired absence of other specified parts of digestive tract; Z90.710 Acquired absence of both cervix and uterus; E11.40 Type 2 diabetes mellitus with diabetic neuropathy, unspecified; Z85.6 Personal history of leukemia; M81.0 Age-related osteoporosis without current pathological fracture; K57.90 Diverticulosis of intestine, part unspecified, without perforation or abscess without bleeding; Z88.0 Allergy status to penicillin; Z88.1 Allergy status to other antibiotic agents; Z88.2 Allergy status to sulfonamides; Z88.8 Allergy status to other drugs, medicaments and biological substances; Z79.01 Long term (current) use of anticoagulants; Z79.4 Long term (current) use of insulin; Z79.899 Other long term (current) drug therapy
CPT/HCPCS: 36415; 51702; 71045; 80053; 81001; 82550; 82947; 83615; 83735; 83880; 84484; 85025; 85610; 85730; 87086; 87088; 87186; 93005; 94640; 96374; 97110-GP; 97161-GP; 99236; 99285-25; A9270-GY; J1815-GY; J1940; J2405; J2930; J7030; J7620-GY; P9047